=== PATIENT | female | born 1960 | race Caucasian/White ===

== ENCOUNTER 2017-12-28 11:31 | Emergency (ER) | payer SELFPAY ==
[~2017-12-28] VITALS: Ht 167.6 cm; Wt 64.1 kg
[~2017-12-28 11:31] MED LIST: CYCL-36 PO; DARV PO; LORT7.5T3 PO; MEDR4PAK3 PO
[2017-12-28 11:37] VITALS: BP 149/66; PULSE 112; RESP 16; TEMP 98.6; O2SAT 96
--- NOTE | 2017-12-28 12:41 | PD ---
HPI Chief Complaint: Abdominal Pain Time Seen by Provider: 12:25 Travel History International Travel<30 days: No Contact w/Intl Traveler<30days: No Traveled to known affect area: No History of Present Illness HPI This 57-year-old female had noted abdominal distention developing over the last couple of weeks. A few weeks ago she had a flu. She had persistent coughing. He then noted that her belly seemed to get distended. This is been progressive. She has noted some swelling of her legs. Today she noted that her eyes were a little bit yellow. She drinks 2 drinks every other day. She does not smoke. She is on no medications. PFSH Past Medical History Diminished Hearing: No ?: Not Past Surgical History Other Surgery: Yes (BACK AND ARM SX) Social History Alcohol Use: No Tobacco Use: No Substance Use: No Allergies-Medications (Allergen,Severity, Reaction): Coded Allergies: doxycycline (Unverified Allergy, Severe, 12/28/17) minocycline (Unverified Allergy, Severe, 12/28/17) penicillin G (Unverified Allergy, Severe, 12/28/17) tigecycline (Unverified Allergy, Severe, 12/28/17) Reported Meds & Prescriptions Reported Meds & Active Scripts Active No Active Prescriptions or Reported Medications Review of Systems General / Constitutional: No: Fever, Chills Eyes: No: Diploplia, Blurred Vision HENT: No: Headaches, Vertigo Cardiovascular: No: Chest Pain or Discomfort, Palpitations Respiratory: Positive: Cough Gastrointestinal: Positive: Nausea, Loss of Appetite Genitourinary: No: Frequency, Dysuria Musculoskeletal: No: Myalgias, Arthralgias Skin: No Rash, No Itching Psychiatric: No: Anxiety Hematologic/Lymphatic: No: Easy Bruising Physical Exam Narrative GENERAL: Well-developed female SKIN: Focused skin assessment warm/dry. HEAD: Atraumatic. Normocephalic. EYES: Pupils equal and round. There is scleral icterus. No injection or drainage. ENT: No nasal bleeding or discharge. Mucous membranes pink and moist. NECK: Trachea midline. No JVD. CARDIOVASCULAR: Regular rate and rhythm. No murmur appreciated. RESPIRATORY: No accessory muscle use. Clear to auscultation. Breath sounds equal bilaterally. GASTROINTESTINAL: Abdomen soft, it is distended and tense. Bowel sounds diminished MUSCULOSKELETAL: No obvious deformities. No clubbing. No cyanosis. No edema. NEUROLOGICAL: Awake and alert. No obvious cranial nerve deficits. Motor grossly within normal limits. Normal speech. PSYCHIATRIC: Appropriate mood and affect; insight and judgment normal. Data Data Last Documented VS Vital Signs Date Time Temp Pulse Resp B/P (MAP) Pulse Ox O2 Delivery O2 Flow Rate FiO2 12/28/17 14:45 107 16 126/79 (95) 98 Room Air 12/28/17 11:37 98.6 Orders Orders Complete Blood Count With Diff (12/28/17 12:36) Comprehensive Metabolic Panel (12/28/17 12:36) Prothrombin Time / Inr (Pt) (12/28/17 12:36) Act Partial Throm Time (Ptt) (12/28/17 12:36) Lipase (12/28/17 12:36) Urinalysis - C+S If Indicated (12/28/17 12:36) Chest, Single Ap (12/28/17 12:36) Ct Abd/Pel W Iv Contrast(Rout) (12/28/17 12:36) Sodium Chlor 0.9% 1000 Ml Inj (Ns 1000 M (12/28/17 12:45) Iohexol 350 Inj (Omnipaque 350 Inj) (12/28/17 14:21) Labs Laboratory Tests Test 12/28/17 12:45 12/28/17 13:01 12/28/17 13:45 Urine Color YELLOW Urine Turbidity CLEAR Urine pH 6.0 Urine Specific [place] 1.020 Urine Protein TRACE mg/dL Urine Glucose (UA) NEG mg/dL Urine Ketones 40 mg/dL Urine Occult Blood NEG Urine Nitrite POS Urine Bilirubin LARGE Urine Urobilinogen 4.0 MG/DL Urine Leukocyte Esterase NEG Urine WBC 0-2 /hpf Urine Squamous Epithelial Cells 0-5 /hpf Urine Bacteria OCC /hpf Urine Hyaline Casts 12 /lpf Urine Mucus MOD /lpf Microscopic Urinalysis Comment CULT NOT INDICATED White Blood Count 11.7 TH/MM3 Red Blood Count 3.94 MIL/MM3 Hemoglobin 13.6 GM/DL Hematocrit 39.8 % Mean Corpuscular Volume 101.2 FL Mean Corpuscular Hemoglobin 34.4 PG Mean Corpuscular Hemoglobin Concent 34.0 % Red Cell Distribution Width 15.4 % Platelet Count 116 TH/MM3 Mean Platelet Volume 10.0 FL CBC Comment AUTO DIFF Differential Total Cells Counted 100 Neutrophils % (Manual) 88 % Band Neutrophils % 8 % Lymphocytes % 2 % Monocytes % 2 % Neutrophils # (Manual) 11.2 TH/MM3 Nucleated Red Blood Cells 1 /100 WBC Differential Comment FINAL DIFF MANUAL Blood Urea Nitrogen 16 MG/DL Creatinine 0.60 MG/DL Random Glucose 79 MG/DL Total Protein 7.7 GM/DL Albumin 2.9 GM/DL Calcium Level 8.7 MG/DL Alkaline Phosphatase 641 U/L Aspartate Amino Transf (AST/SGOT) 350 U/L Alanine Aminotransferase (ALT/SGPT) 55 U/L Total Bilirubin 7.9 MG/DL Sodium Level 126 MEQ/L Potassium Level 4.2 MEQ/L Chloride Level 90 MEQ/L Carbon Dioxide Level 18.4 MEQ/L Anion Gap 18 MEQ/L Estimat Glomerular Filtration Rate 103 ML/MIN Lipase 824 U/L Prothrombin Time 14.9 SEC Prothromb Time International Ratio 1.5 RATIO Activated Partial Thromboplast Time 31.0 SEC MDM Medical Decision Making Medical Screen Exam Complete: Yes Emergency Medical Condition: Yes Medical Record Reviewed: Yes Differential Diagnosis Differential includes cirrhosis, ascites, obstructive jaundice, hepatitis Narrative Course Hemoglobin is 13.6 with a white count of 11,000. There is a 88% polys and 8% bands. Sodium is 126. Lipase is a 24. Total bilirubin is 7.9 AST of 350 and ALT of 55. CT scan shows ascites and cirrhosis. Spoken the patient is some length. The etiology of her cirrhosis is not clear. I have recommended that she be admitted he is quite adamant that she is going to go home. She is quite rational and says she will go for testing. She will be referred to clinic and I have also mentioned that she can return. I have urged her not to use Tylenol or alcohol Diagnosis Primary Impression: Cirrhosis of liver Referrals: [facility] Scripts No Active Prescriptions or Reported Meds Disposition: DISCHARGE HOME Condition: Stable Sy Tong MD Dec 28, 2017 12:41
[2017-12-28] MEDS ORDERED: SODIUM CHLOR 0.9% 1000 ML INJ 1,000 ML IV ONE (12:45)
[2017-12-28 13:35] LABS: CHLORIDE 90 MEQ/L (98-107); HEMATOCRIT 39.8 % (35.0-46.0); HEMOGLOBIN 13.6 GM/DL (11.6-15.3); MEAN CELL VOLUME 101.2 FL (80.0-100.0); MEAN CORPUSCULAR HEMOGLOBIN 34.4 PG (27.0-34.0); PLATELET COUNT 116 TH/MM3 (150-450); RED BLOOD COUNT 3.94 MIL/MM3 (4.00-5.30); RED CELL DISTRIBUTION WIDTH 15.4 % (11.6-17.2); SODIUM (NA) 126 MEQ/L (136-145); WHITE BLOOD COUNT 11.7 TH/MM3 (4.0-11.0)
--- NOTE | 2017-12-28 13:39 | RADRPT ---
EXAM DATE/TIME: 12/28/2017 13:14 [facility] COMPARISON: No previous studies available for comparison. INDICATIONS : Swollen stomach distention MEDICAL HISTORY : None. SURGICAL HISTORY : None. ENCOUNTER: Initial ACUITY: 1 week PAIN SCORE: 0/10 LOCATION: chest FINDINGS: Left lower lobe airspace disease and small pleural effusion. Likely trace right pleural effusion. Car diomediastinal contours are within normal limits. Bony thorax is intact. CONCLUSION: 1. Left lower lobe airspace disease and small left pleural effusion. 2. Probable trace right pleural effusion. Gage Anderson MD on December 28, 2017 at 13:35 Board Certified Radiologist. This report was verified electronically.
[2017-12-28 13:41] LABS: ALBUMIN 2.9 GM/DL (3.4-5.0); BICARBONATE 18.4 MEQ/L (21.0-32.0); CALCIUM 8.7 MG/DL (8.5-10.1)
[2017-12-28 13:42] LABS: BILIRUBIN, URINE LARGE (NEG); BLOOD, URINE NEG (NEG); GLUCOSE,URINE NEG (NEG); KETONE, URINE 40 mg/dL (NEG); NITRITE,URINE POS (NEG); URINE COLOR YELLOW (YELLW/STRAW); URINE LEUKOCYTE ESTERASE NEG (NEG)
[2017-12-28 13:42] LABS: BLOOD UREA NITROGEN 16 MG/DL (7-18); GLUCOSE,RANDOM 79 MG/DL (74-106)
[2017-12-28 13:44] LABS: ALT (GPT) 55 U/L (10-53); AST (GOT) 350 U/L (15-37); GLOMERULAR FILTRATION RATE 103 ML/MIN (>89)
[2017-12-28 13:46] LABS: TOTAL BILIRUBIN ADULT 7.9 MG/DL (0.2-1.0); TOTAL PROTEIN 7.7 GM/DL (6.4-8.2)
[2017-12-28 13:49] LABS: ALKALINE PHOSPHATASE 641 U/L (45-117)
[2017-12-28 13:49] LABS: MUCUS URINE MOD /lpf (OCC); WBC, URINE 0-2 /hpf (0-5)
[2017-12-28 13:50] LABS: HYALINE CAST, URINE 12 /lpf (RARE)
[2017-12-28 13:51] LABS: BACTERIA, URINE OCC /hpf; SQUAMOUS EPITHELIAL CELL URINE 0-5 /hpf (0-5)
[2017-12-28 14:02] LABS: BANDS 8 % (0-6); CORRECTED NUCLEATED RBC 1 /100 WBC (0-0); LYMPHOCYTES 2 % (9-44); MONOCYTES 2 % (0-8); NEUTROPHIL # MANUAL DIFF 11.2 TH/MM3 (1.8-7.7); NUCLEATED RED BLOOD CELL 1 (0-0); POLYS (SEG NEUTROPHILS) 88 % (16-70)
[2017-12-28 14:11] LABS: INTERNATIONAL NORMALIZED RATIO 1.5 RATIO; PROTHROMBIN TIME - PATIENT 14.9 SEC (9.8-11.6)
[2017-12-28] MEDS ORDERED: IOHEXOL 350 MG/ML 10 ML VIAL (for RAD DIAG) IVCONTRAST ONE (14:21)
--- NOTE | 2017-12-28 14:44 | RADRPT ---
EXAM DATE/TIME: 12/28/2017 14:15 [facility] COMPARISON: No previous studies available for comparison. INDICATIONS : Lower abdominal pain with nausea for two weeks. Noticed yellow sclera today. IV CONTRAST: 80 cc Omnipaque 350 (iohexol) IV ORAL CONTRAST: No oral contrast ingested. RADIATION DOSE: 11.47 CTDIvol (mGy) MEDICAL HISTORY : None SURGICAL HISTORY : Back surgery. ENCOUNTER: Initial ACUITY: 2 weeks PAIN SCALE: 5/10 LOCATION: lower quadrant TECHNIQUE: Volumetric scanning of the abdomen and pelvis was performed. Using automated exposure control and ad justment of the mA and/or kV according to patient size, radiation dose was kept as low as reasonably achievable to obtain optimal diagnostic quality images. DICOM format image data is available electro nically for review and comparison. FINDINGS: Large amount of ascites is noted throughout the abdomen and pelvis. The liver is heterogeneous in att enuation and nodular in contour suggesting cirrhosis. Recanalization of the umbilical vein as well as esophageal varices are noted suggesting portal hypertension. The gallbladder is distended but its wa ll is not thickened. The spleen is normal size. The pancreas is normal. There are tiny subcentimeter low-density lesions within the lower poles of both kidneys consistent with probable cysts. No hydrone phrosis, calcified stone or solid mass is noted. No bowel obstruction is noted. The uterus is unremar kable. The urinary bladder is unremarkable. Small bilateral pleural effusions are noted. Adjacent com pressive atelectasis is noted. Hiatal hernia is noted. Degenerative changes and scoliosis of the thor acolumbar spine are noted. CONCLUSION: 1. Heterogeneous nodular liver suggestive of cirrhosis. 2. Large amount of ascites. 3. Recanalization of the umbilical vein as well as esophageal varices suggesting portal hypertension. 4. Hiatal hernia. 5. Tiny subcentimeter lower pole bilateral renal cysts. 6. Small bilateral pleural effusions with adjacent compressive atelectasis. 7. Degenerative changes and scoliosis of the thoracolumbar spine. Olivier Torres MD on December 28, 2017 at 14:35 Board Certified Radiologist. This report was verified electronically.
[2017-12-28 14:45] VITALS: BP 126/79; PULSE 107; RESP 16; O2SAT 98
[2017-12-28 15:47] VITALS: BP 121/70
== END 2017-12-28 15:58 | disposition home or self-care (01) ==
LOC: PHED 11:31
DX: K74.60 Unspecified cirrhosis of liver (principal); R18.8 Other ascites; R05 Cough; M79.89 Other specified soft tissue disorders
CPT/HCPCS: 71045; 74177; 80053; 81001; 83690; 85007; 85027; 85610; 85730; 99285; J7030; Q9967

== ENCOUNTER 2018-01-02 13:57 | Inpatient (IN) | payer SELFPAY ==
[~2018-01-02] VITALS: Ht 167.6 cm; Wt 85.5 kg
[2018-01-02 14:25] VITALS: BP 101/63; PULSE 85; RESP 20; TEMP 98.3; O2SAT 98
[2018-01-02] MEDS ORDERED: SPIR50TA PO (14:54)
[2018-01-02] MEDS ORDERED: POTA-163 PO (14:54)
[2018-01-02] MEDS ORDERED: METO1TAB42 PO (14:54)
[2018-01-02] MEDS ORDERED: FURO1TAB62 PO (14:54)
--- NOTE | 2018-01-02 14:54 | PD ---
HPI Chief Complaint: Edema Time Seen by Provider: 14:37 Travel History International Travel<30 days: No Contact w/Intl Traveler<30days: No Traveled to known affect area: No History of Present Illness HPI 57yo F with PMH of alcohol abuse here with c/o worsening edema and sob on exertion for the last few days. Pt was seen here in the ED on 12/28/17 for edema and was found to have cirrhosis and large amount of ascites on CTa/p and small pleural effusion on CXR. Pt also with elevated LFTs and UA was positive for nitrite but culture was not indicated. Pt was recommended to be admitted for evaluation of ascites and cirrhosis but pt refused at the time. Pt said she went to her PMD 2 days ago and was started on furosemide 20mg daily, spironolactone 50mg daily as well as potassium. Pt was also started on metoprolol because her PMD said she had irregular heart beat. Pt said her swelling has gotten worse and she feels generalized weakness, dizziness and sob with exertion. Said abdomen is not really painful but sore. Denies any fever, chest pain, vomiting. Said she stopped drinking alcohol since this happen 12/28. PFSH Past Medical History Diminished Hearing: No ?: Not Past Surgical History Other Surgery: Yes (BACK AND RIGHT ARM SX) Social History Alcohol Use: Yes (couple drinks every 2 days) Tobacco Use: No Substance Use: No Allergies-Medications (Allergen,Severity, Reaction): Coded Allergies: doxycycline (Unverified Allergy, Severe, 12/28/17) minocycline (Unverified Allergy, Severe, 12/28/17) penicillin G (Unverified Allergy, Severe, 12/28/17) tigecycline (Unverified Allergy, Severe, 12/28/17) Reported Meds & Prescriptions Reported Meds & Active Scripts Active Reported Metoprolol Succinate ER 24 HR (Metoprolol Succinate) 25 Mg Tab 25 Mg PO DAILY Potassium Chloride ER (Potassium Chloride) 20 Meq Tab 80 Meq PO BID Spironolactone 50 Mg Tab 50 Mg PO DAILY Lasix (Furosemide) 20 Mg Tab 20 Mg PO DAILY Review of Systems Except as stated in HPI: all other systems reviewed are Neg Physical Exam Narrative GENERAL: 57yo F in mild distress. SKIN: Focused skin assessment warm/dry. HEAD: Atraumatic. Normocephalic. EYES: Pupils equal and round. + scleral icterus. No injection or drainage. ENT: No nasal bleeding or discharge. Mucous membranes pink and moist. NECK: Trachea midline. No JVD. CARDIOVASCULAR: Regular rate and rhythm. No murmur appreciated. RESPIRATORY: No accessory muscle use. Clear to auscultation. Breath sounds equal bilaterally. GASTROINTESTINAL: Abdomen softly distended. Mild ttp right upper abdomen. No rebound tenderness or guarding. MUSCULOSKELETAL: Diffused edema in bilateral lower extremity. NEUROLOGICAL: Awake and alert. No obvious cranial nerve deficits. Motor grossly within normal limits. Normal speech. PSYCHIATRIC: Appropriate mood and affect; insight and judgment normal. Data Data Last Documented VS Vital Signs Date Time Temp Pulse Resp B/P (MAP) Pulse Ox O2 Delivery O2 Flow Rate FiO2 01/02/18 14:48 Room Air 01/02/18 14:25 98.3 85 20 101/63 (76) 98 Orders Orders Complete Blood Count With Diff (01/02/18 14:41) Comprehensive Metabolic Panel (01/02/18 14:41) B-Type Natriuretic Peptide (01/02/18 14:47) Troponin I (01/02/18 14:47) Chest, Single Ap (01/02/18 ) Electrocardiogram (01/02/18 ) Urinalysis - C+S If Indicated (01/02/18 14:49) Furosemide Inj (Lasix Inj) (01/02/18 16:15) Blood Culture (01/02/18 17:05) Peritoneal Cell Count + Diff (01/02/18 17:12) Total Protein Peritoneal Fluid (01/02/18 17:12) Albumin, Peritoneal Fluid (01/02/18 17:12) Glucose, Peritoneal Fluid (01/02/18 17:12) Ldh, Peritoneal Fluid (01/02/18 17:12) Amylase, Peritoneal Fluid (01/02/18 17:12) Fluid Culture And Gram Stain (01/02/18 17:12) Cytology Request For Service (01/02/18 17:12) Ed Poc Ultrasound (01/02/18 ) Lidocaine 1% Inj (50 Ml) (Xylocaine 1% I (01/02/18 17:30) Prothrombin Time / Inr (Pt) (01/02/18 17:23) Act Partial Throm Time (Ptt) (01/02/18 17:23) Lidocaine Pf 1% Inj (Xylocaine-Mpf 1% In (01/02/18 17:25) Levofloxacin 750 Mg Premix Inj (Levaquin (01/02/18 18:00) Admit To Inpatient (01/02/18 ) Vital Signs (Adult) ELIAN.Q4H (01/02/18 18:07) Activity Oob With Assistance (01/02/18 18:07) Inpatient Certification (01/02/18 ) Admit Order (Ed Use Only) (01/02/18 18:08) Metoprolol Succinate Er (Toprol Xl) (01/03/18 09:00) Potassium Chloride (Kcl) (01/02/18 21:00) Spironolactone (Aldactone) (01/03/18 09:00) Echo 2d Comp With Doppler (01/02/18 ) Us Guided Abd Paracentesis (01/03/18 06:00) Labs Laboratory Tests Test 01/02/18 15:30 01/02/18 16:11 01/02/18 16:30 01/02/18 17:55 B-Type Natriuretic Peptide 85 PG/ML White Blood Count 19.0 TH/MM3 Red Blood Count 3.30 MIL/MM3 Hemoglobin 11.4 GM/DL Hematocrit 33.2 % Mean Corpuscular Volume 100.8 FL Mean Corpuscular Hemoglobin 34.7 PG Mean Corpuscular Hemoglobin Concent 34.4 % Red Cell Distribution Width 15.2 % Platelet Count 170 TH/MM3 Mean Platelet Volume 9.6 FL CBC Comment AUTO DIFF Differential Total Cells Counted 100 Neutrophils % (Manual) 69 % Band Neutrophils % 10 % Lymphocytes % 12 % Monocytes % 7 % Neutrophils # (Manual) 15.4 TH/MM3 Metamyelocytes 1 % Myelocytes 1 % Differential Comment FINAL DIFF MANUAL Toxic Granulation 1+ Platelet Estimate NORMAL Platelet Morphology Comment NORMAL Target Cells 2+ Prothrombin Time 15.4 SEC Prothromb Time International Ratio 1.5 RATIO Activated Partial Thromboplast Time 31.0 SEC Blood Urea Nitrogen 14 MG/DL Creatinine 0.55 MG/DL Random Glucose 91 MG/DL Total Protein 6.5 GM/DL Albumin 2.4 GM/DL Calcium Level 8.2 MG/DL Alkaline Phosphatase 486 U/L Aspartate Amino Transf (AST/SGOT) 234 U/L Alanine Aminotransferase (ALT/SGPT) 47 U/L Total Bilirubin 8.0 MG/DL Sodium Level 125 MEQ/L Potassium Level 4.4 MEQ/L Chloride Level 91 MEQ/L Carbon Dioxide Level 24.2 MEQ/L Anion Gap 10 MEQ/L Estimat Glomerular Filtration Rate 114 ML/MIN Troponin I LESS THAN 0.02 NG/ML Urine Collection Type CLEAN CATCH Urine Color LOR Urine Turbidity CLEAR Urine pH 6.0 Urine Specific [place] LESS/EQUAL 1.005 Urine Protein NEG mg/dL Urine Glucose (UA) NEG mg/dL Urine Ketones 15 mg/dL Urine Occult Blood NEG Urine Nitrite NEG Urine Bilirubin MOD Urine Urobilinogen 4.0 MG/DL Urine Leukocyte Esterase NEG Urine WBC 3-5 /hpf Urine Squamous Epithelial Cells >8 /hpf Urine Bacteria RARE /hpf Urine Mucus FEW /lpf Microscopic Urinalysis Comment CULT NOT INDICATED Peritoneal Fluid WBC 73 /MM3 Peritoneal Fluid RBC 352 /MM3 Peritoneal Fluid Neutrophils 14 % Peritoneal Fluid Lymphocytes 25 % Peritoneal Fluid Monocytes 15 % Peritoneal Fluid Histiocytes 44 % Peritoneal Fluid Mesothelial Cells 2 % Peritoneal Fluid Total Protein 0.9 GM/DL Peritoneal Fluid Albumin 0.4 G/DL Peritoneal Fluid LDH 61 U/L Peritoneal Fluid Glucose 101 MG/DL [place] Medical Decision Making Medical Screen Exam Complete: Yes Emergency Medical Condition: Yes Interpretation(s) EKG: NSR 80bpm. LAD. TWI V2. Low voltage. Differential Diagnosis Anasarca vs. cirrhosis vs. pleural effusion vs. spontaneous bacterial peritonitis Narrative Course 57yo F with worsening lower extremity edema, abdominal distension and now sob with exertion. Pt recently evaluated here with diagnosis of cirrhosis and had refused admission at that time. Pt now wants admission and has failed outpatient therapy with furosemide and spironolactone. Pt given lasix 40mg IV. Pt has a distended abdomen but denies any fever or vomiting. Pt keep saying she has soreness and not pain but it is mildly tender in right upper abdomen. Pt had recent CT a/p that showed signs of cirrhosis and large ascites. Labs reviewed, leukocytosis at 19,000 which is more elevated than 11.7 from 12/28/17. Also with 10% bandemia. Mild hyponatremia at 125 unchanged from prior. Elevated AST at 234 improved from last time. BNP 85. Trop negative. UA showed WBC 3-5. Culture not indicated. Concern for spontaneous bacterial peritonitis so bedside ultrasound guided diagnostic paracentesis performed and obtained 57cc of serous ascitic fluid. Pt given levofloxacin because of severe penicillin allergy when she was a child and she does not want to risk it. Discussed with Dr. Florentino and accepted to his service. Critical Care Narrative Aggregate critical care time was 40 minutes. Time to perform other separately billable procedures was not included in the critical care time. My time did not include minutes spent treating any other patients simultaneously or on activities that did not directly contribute to the patient's treatment. The services I provided to this patient were to treat and/or prevent clinically significant deterioration that could result in: cardiovascular collapse or . I provided critical care services requiring my management, as noted below: Chart data review, documentation time, medication orders and management, vital sign assessments/reviewing monitor data, ordering and reviewing lab tests, ordering and interpreting/reviewing x-rays and diagnostic studies, care of the patient and discussion of the patient with the admitting physicians. Procedures Procedure Narrative Ultrasound-guided paracentesis Curvilinear probe was used for ultrasound guided paracentesis. Right lower abdomen was cleaned with chlorhexadine and sterile drapes were used. 3cc of 1% lidocaine was used to anesthesize the area before an 18 gauge needle was used and 57cc of serous ascitic fluid was aspirated and sent to lab. Pt tolerated procedure well. Bandage was used to cover puncture site. No active bleeding. Diagnosis Primary Impression: Bandemia Additional Impression: Cirrhosis Qualified Codes: K74.60 - Unspecified cirrhosis of liver Admitting Information Admitting Physician Requests: Porsha Long DO Jan 02, 2018 14:54
--- NOTE | 2018-01-02 15:27 | RADRPT ---
EXAM DATE/TIME: 01/02/2018 14:53 [facility] COMPARISON: CT ABDOMEN & PELVIS W CONTRAST, December 28, 2017, 14:15. CHEST SINGLE AP, December 28, 2017, 13:14. INDICATIONS : Short of breath, cough MEDICAL HISTORY : Cirrhosis. SURGICAL HISTORY : None. ENCOUNTER: Initial ACUITY: 1 week PAIN SCORE: 0/10 LOCATION: Bilateral chest FINDINGS: Small bilateral effusions persists, slightly worse on the left than the right. Normal streaky parench ymal opacity in the lung bases. Cardiac contours are grossly stable. CONCLUSION: No significant change Messi Trinidad MD on January 02, 2018 at 15:24 Board Certified Radiologist. This report was verified electronically.
[2018-01-02] MEDS ORDERED: FUROSEMIDE 40 MG/4 ML VIAL IV PUSH ONE (16:15)
[2018-01-02 16:34] LABS: HEMATOCRIT 33.2 % (35.0-46.0); HEMOGLOBIN 11.4 GM/DL (11.6-15.3); MEAN CELL VOLUME 100.8 FL (80.0-100.0); MEAN CORPUSCULAR HEMOGLOBIN 34.7 PG (27.0-34.0); MEAN CORPUSCULAR HGB CONC 34.4 % (32.0-36.0); MEAN PLATELET VOLUME 9.6 FL (7.0-11.0); PLATELET COUNT 170 TH/MM3 (150-450); RED CELL DISTRIBUTION WIDTH 15.2 % (11.6-17.2)
[2018-01-02 16:42] LABS: CHLORIDE 91 MEQ/L (98-107); SODIUM (NA) 125 MEQ/L (136-145)
[2018-01-02 16:45] LABS: CALCIUM 8.2 MG/DL (8.5-10.1)
[2018-01-02 16:46] LABS: ALBUMIN 2.4 GM/DL (3.4-5.0); BICARBONATE 24.2 MEQ/L (21.0-32.0); BLOOD UREA NITROGEN 14 MG/DL (7-18); GLUCOSE,RANDOM 91 MG/DL (74-106)
[2018-01-02 16:48] LABS: BILIRUBIN, URINE MOD (NEG); BLOOD, URINE NEG (NEG); GLUCOSE,URINE NEG (NEG); KETONE, URINE 15 mg/dL (NEG); NITRITE,URINE NEG (NEG); URINE LEUKOCYTE ESTERASE NEG (NEG)
[2018-01-02 16:49] LABS: ALT (GPT) 47 U/L (10-53); AST (GOT) 234 U/L (15-37); CREATININE 0.55 MG/DL (0.50-1.00); GLOMERULAR FILTRATION RATE 114 ML/MIN (>89)
[2018-01-02 16:50] LABS: URINE COLOR AMBER (YELLW/STRAW)
[2018-01-02 16:50] LABS: TOTAL PROTEIN 6.5 GM/DL (6.4-8.2)
[2018-01-02 16:52] LABS: ALKALINE PHOSPHATASE 486 U/L (45-117)
[2018-01-02 17:15] LABS: BACTERIA, URINE RARE /hpf; MUCUS URINE FEW /lpf (OCC); SQUAMOUS EPITHELIAL CELL URINE >8 /hpf (0-5)
[2018-01-02] MEDS ORDERED: LIDOCAINE HCL 1% PF 30 ML VIAL ONE (17:25)
[2018-01-02] MEDS ORDERED: LIDOCAINE HCL 1% 50 ML VIAL INFIL ONE (17:30)
[2018-01-02 17:43] LABS: BANDS 10 % (0-6); LYMPHOCYTES 12 % (9-44); METAMYELOCYTES 1 % (0-1); MONOCYTES 7 % (0-8); MYELOCYTES 1 % (0-0); NEUTROPHIL # MANUAL DIFF 15.4 TH/MM3 (1.8-7.7); POLYS (SEG NEUTROPHILS) 69 % (16-70); TARGET CELLS 2+ (NORMAL); TOXIC GRANULATION 1+ (NORMAL)
[2018-01-02 17:46] LABS: INTERNATIONAL NORMALIZED RATIO 1.5 RATIO; PROTHROMBIN TIME - PATIENT 15.4 SEC (9.8-11.6)
[2018-01-02] MEDS ORDERED: LEVOFLOXACIN 750 MG PREMIX INJ 150 ML IV ONE (18:00)
[2018-01-02] MEDS ORDERED: LORazepam 2 MG/ML VIAL IV PUSH PRN ×4 (18:15)
[2018-01-02] MEDS ORDERED: LORazepam 2 MG TAB PO PRN (18:15)
[2018-01-02] MEDS ORDERED: LORazepam 1 MG TAB PO PRN (18:15)
[2018-01-02] MEDS ORDERED: FLUMAZENIL 0.5 MG/5 ML VIAL IV PUSH PRN (18:15)
[2018-01-02 18:32] VITALS: BP 97/66; PULSE 81; RESP 16; O2SAT 97
[2018-01-02 18:48] LABS: PERITONEAL HISTIOCYTES 44 %; PERITONEAL LYMPHS 25 %; PERITONEAL MESOTHELIAL 2 %; PERITONEAL MONOS 15 %; PERITONEAL POLYS(SEGS) 14 %; PERITONEAL RBC 352 /MM3 (0-0)
[2018-01-02 19:35] VITALS: BP 102/66; PULSE 74; RESP 20; O2SAT 99
[2018-01-02 20:00] VITALS: BP 105/65; PULSE 84; RESP 20; TEMP 96.8; O2SAT 97
[2018-01-02 20:21] LABS: TOTAL PROTEIN,PERITONEAL FLUID 0.9 GM/DL
[2018-01-02] MEDS ORDERED: KETOROLAC TROMETHAMINE 30 MG/ML (IVP) VIAL IV PUSH ONE (20:30)
[2018-01-02] MEDS: POTASSIUM CHLORIDE 20 MEQ CONTROLLED RELEASE TAB PO SCH (21:18)
[2018-01-02] MEDS ORDERED: MORPHINE SULFATE 4 MG/ML INJ IV PUSH ONE (23:15)
[2018-01-02] MEDS ORDERED: MORPHINE SULFATE 2 MG/ML SYRINGE IV PUSH ONE (23:15)
[2018-01-03] VITALS: BP 101/58; PULSE 83; RESP 20; TEMP 97.9; O2SAT 98
[2018-01-03 07:47] LABS: HEMATOCRIT 33.5 % (35.0-46.0); MEAN CELL VOLUME 101.4 FL (80.0-100.0); MEAN CORPUSCULAR HEMOGLOBIN 33.4 PG (27.0-34.0); MEAN PLATELET VOLUME 10.1 FL (7.0-11.0); PLATELET COUNT 170 TH/MM3 (150-450); RED CELL DISTRIBUTION WIDTH 15.5 % (11.6-17.2); WHITE BLOOD COUNT 17.6 TH/MM3 (4.0-11.0)
[2018-01-03 08:00] VITALS: BP 102/65; PULSE 78; RESP 16; TEMP 96.9; O2SAT 100
[2018-01-03 08:27] LABS: ALBUMIN 2.1 GM/DL (3.4-5.0); ALKALINE PHOSPHATASE 431 U/L (45-117); ALT (GPT) 43 U/L (10-53); AST (GOT) 206 U/L (15-37); BLOOD UREA NITROGEN 17 MG/DL (7-18); CALCIUM 8.1 MG/DL (8.5-10.1); CHLORIDE 92 MEQ/L (98-107); CREATININE 0.51 MG/DL (0.50-1.00); GLOMERULAR FILTRATION RATE 124 ML/MIN (>89); GLUCOSE,RANDOM 75 MG/DL (74-106); SODIUM (NA) 126 MEQ/L (136-145); TOTAL BILIRUBIN ADULT 7.2 MG/DL (0.2-1.0); TOTAL PROTEIN 5.9 GM/DL (6.4-8.2)
[2018-01-03 08:48] LABS: BANDS 5 % (0-6); CORRECTED NUCLEATED RBC 2 /100 WBC (0-0); LYMPHOCYTES 9 % (9-44); MONOCYTES 8 % (0-8); MYELOCYTES 1 % (0-0); NEUTROPHIL # MANUAL DIFF 14.4 TH/MM3 (1.8-7.7); NUCLEATED RED BLOOD CELL 2 (0-0); POLYS (SEG NEUTROPHILS) 76 % (16-70)
[2018-01-03 08:50] LABS: TARGET CELLS 1+ (NORMAL)
[2018-01-03] MEDS: POTASSIUM CHLORIDE 20 MEQ CONTROLLED RELEASE TAB PO SCH ×2 (09:00→21:53)
[2018-01-03] MEDS: METOPROLOL SUCCINATE 25 MG EXTENDED RELEASE TAB PO SCH (09:00)
[2018-01-03] MEDS ORDERED: LEVOFLOXACIN 750 MG TAB PO SCH (09:00)
[2018-01-03] MEDS: SPIRONOLACTONE 50 MG TAB PO SCH (09:05)
--- NOTE | 2018-01-03 09:34 | HHI.HP ---
HPI Service [facility] Primary Care Physician Rocael De La Torre MD (Paul) Admission Diagnosis Cirrhosis, sepsis, possible spontaneous bacterial peritonitis Diagnoses: Chief Complaint: swelling Travel History International Travel<30 Days: No Contact w/Intl Traveler <30 Da: No Traveled to Known Affected Are: No History of Present Illness 57-year-old white female being admitted for abdominal distention Patient was in her usual state of health until about a week ago when she began noticing gradual onset of abdominal distention and lower extremity edema. She initially went to the emergency room and was advised to stay but she wanted to go home. She was prescribed Lasix and spironolactone by her PCP where she started taking. However her distention and edema progressed and she also developed abdominal pain that was in the right upper quadrant and epigastrium prompting her to come to the emergency department. Reports some nausea but denies any diarrhea. Denies any fevers or chills. Says that it has been difficult for her to walk due to the edema in her legs. Case was discussed with the emergency department physician who said that she performed a bedside diagnostic paracentesis and sent specimen off for fluid analysis and cultures. Noted to have a bandemia upon presentation. Patient was given a dose of levofloxacin as well as Lasix. Patient denies such symptoms happening to her in the past. Denies having any prior knowledge of any liver disease. Social history is remarkable for 2 drinks of alcohol about daily to every other day. Says she has been doing this for a while. Denies smoking or any illicit drug use. He is to partake in a [employer] business. Family history significant for Alzheimer's in her mother and father with heart disease. Past medical history is unremarkable otherwise per patient. Review of Systems Except as stated in HPI: all other systems reviewed are Neg Past Family Social History Allergies: Coded Allergies: doxycycline (Unverified Allergy, Severe, 12/28/17) minocycline (Unverified Allergy, Severe, 12/28/17) penicillin G (Unverified Allergy, Severe, 12/28/17) tigecycline (Unverified Allergy, Severe, 12/28/17) Physical Exam Vital Signs Vital Signs Date Time Temp Pulse Resp B/P (MAP) Pulse Ox O2 Delivery O2 Flow Rate FiO2 01/03/18 08:00 96.9 78 16 102/65 (77) 100 01/03/18 00:00 97.9 83 20 101/58 (72) 98 01/02/18 20:00 96.8 84 20 105/65 (78) 97 01/02/18 19:35 74 20 102/66 (78) 99 Room Air 01/02/18 18:32 81 16 97/66 (76) 97 Room Air 01/02/18 14:48 Room Air 01/02/18 14:25 98.3 85 20 101/63 (76) 98 Physical Exam VS: afebrile GENERAL: Lying in bed, awake, alert, no acute distress SKIN: Warm and dry. EYES: prominent scleral icterus. No injection or drainage. ENT: No nasal bleeding or discharge. Mucous membranes pink and moist. CARDIOVASCULAR: Regular rate and rhythm. no murmurs RESPIRATORY: No accessory muscle use. Clear to auscultation. Breath sounds equal bilaterally. GASTROINTESTINAL: Abdomen soft, mod distended, RUQ TTP mod and epigastrium TTP mild Extremities: No clubbing, cyanosis. Mod LE edema MUSCULOSKELETAL: adequate muscle bulk and tone for age and habitus NEUROLOGICAL: Awake and alert. No obvious cranial nerve deficits. No facial droop nor slurred speech noted. PSYCHIATRIC: Appropriate mood and affect; insight and judgment normal. Laboratory Laboratory Tests Test 01/02/18 15:30 01/02/18 16:11 01/02/18 16:30 01/02/18 17:55 B-Type Natriuretic Peptide 85 White Blood Count 19.0 Red Blood Count 3.30 Hemoglobin 11.4 Hematocrit 33.2 Mean Corpuscular Volume 100.8 Mean Corpuscular Hemoglobin 34.7 Mean Corpuscular Hemoglobin Concent 34.4 Red Cell Distribution Width 15.2 Platelet Count 170 Mean Platelet Volume 9.6 CBC Comment AUTO DIFF Differential Total Cells Counted 100 Neutrophils % (Manual) 69 Band Neutrophils % 10 Lymphocytes % 12 Monocytes % 7 Neutrophils # (Manual) 15.4 Metamyelocytes 1 Myelocytes 1 Differential Comment FINAL DIFF MANUAL Toxic Granulation 1+ Platelet Estimate NORMAL Platelet Morphology Comment NORMAL Target Cells 2+ Prothrombin Time 15.4 Prothromb Time International Ratio 1.5 Activated Partial Thromboplast Time 31.0 Blood Urea Nitrogen 14 Creatinine 0.55 Random Glucose 91 Total Protein 6.5 Albumin 2.4 Calcium Level 8.2 Alkaline Phosphatase 486 Aspartate Amino Transf (AST/SGOT) 234 Alanine Aminotransferase (ALT/SGPT) 47 Total Bilirubin 8.0 Sodium Level 125 Potassium Level 4.4 Chloride Level 91 Carbon Dioxide Level 24.2 Anion Gap 10 Estimat Glomerular Filtration Rate 114 Troponin I LESS THAN 0.02 Urine Collection Type CLEAN CATCH Urine Color LOR Urine Turbidity CLEAR Urine pH 6.0 Urine Specific Richardson LESS/EQUAL 1.005 Urine Protein NEG Urine Glucose (UA) NEG Urine Ketones 15 Urine Occult Blood NEG Urine Nitrite NEG Urine Bilirubin MOD Urine Urobilinogen 4.0 Urine Leukocyte Esterase NEG Urine WBC 3-5 Urine Squamous Epithelial Cells >8 Urine Bacteria RARE Urine Mucus FEW Microscopic Urinalysis Comment CULT NOT INDICATED Peritoneal Fluid WBC 73 Peritoneal Fluid RBC 352 Peritoneal Fluid Neutrophils 14 Peritoneal Fluid Lymphocytes 25 Peritoneal Fluid Monocytes 15 Peritoneal Fluid Histiocytes 44 Peritoneal Fluid Mesothelial Cells 2 Peritoneal Fluid Total Protein 0.9 Peritoneal Fluid Albumin 0.4 Peritoneal Fluid LDH 61 Peritoneal Fluid Glucose 101 Test 01/03/18 06:30 White Blood Count 17.6 Red Blood Count 3.30 Hemoglobin 11.0 Hematocrit 33.5 Mean Corpuscular Volume 101.4 Mean Corpuscular Hemoglobin 33.4 Mean Corpuscular Hemoglobin Concent 33.0 Red Cell Distribution Width 15.5 Platelet Count 170 Mean Platelet Volume 10.1 CBC Comment AUTO DIFF Differential Total Cells Counted 100 Neutrophils % (Manual) 76 Band Neutrophils % 5 Lymphocytes % 9 Monocytes % 8 Eosinophils % 1 Neutrophils # (Manual) 14.4 Myelocytes 1 Nucleated Red Blood Cells 2 Differential Comment FINAL DIFF MANUAL Platelet Estimate NORMAL Platelet Morphology Comment NORMAL Target Cells 1+ Blood Urea Nitrogen 17 Creatinine 0.51 Random Glucose 75 Total Protein 5.9 Albumin 2.1 Calcium Level 8.1 Alkaline Phosphatase 431 Aspartate Amino Transf (AST/SGOT) 206 Alanine Aminotransferase (ALT/SGPT) 43 Total Bilirubin 7.2 Sodium Level 126 Potassium Level 5.4 Chloride Level 92 Carbon Dioxide Level 24.0 Anion Gap 10 Estimat Glomerular Filtration Rate 124 Date/Time Source Procedure Growth Status 01/02/18 17:20 Blood Peripheral Aerobic Blood Culture Pending Received 01/02/18 17:20 Blood Peripheral Anaerobic Blood Culture Pending Received 01/02/18 17:55 Fluid Peritoneal Fluid Gram Stain - Final Resulted 01/02/18 17:55 Fluid Peritoneal Fluid Body Fluid Culture Pending Resulted Result Diagram: 01/03/18 0630 01/03/18 0630 Imaging Last Impressions Chest X-Ray 01/02/18 0000 Signed Impressions: Service Date/Time: Tuesday, January 02, 2018 14:53 - CONCLUSION: No significant change MD Rhett Amaral VTE Risk Assessment Caprini VTE Risk Assessment: Mod/High Risk (score >= 2) Caprini Risk Assessment Model Point Value = 1 Point Value = 2 Point Value = 3 Point Value = 5 Age 41-60 Minor surgery BMI > 25 kg/m2 Swollen legs Varicose veins or History of unexplained or recurrent spontaneous Oral contraceptives or hormone replacement Sepsis (< 1 month) Serious lung disease, including pneumonia (< 1 month) Abnormal pulmonary function Acute myocardial infarction Congestive heart failure (< 1 month) History of inflammatory bowel disease Medical patient at bed rest Age 61-74 Arthroscopic surgery Major open surgery (> 45 min) Laparoscopic surgery (> 45 min) Malignancy Confined to bed (> 72 hours) Immobilizing plaster cast Central venous access Age >= 75 History of VTE Family history of VTE Factor V Leiden Prothrombin [id number] Lupus anticoagulant Anticardiolipin antibodies Elevated serum homocysteine Heparin-induced thrombocytopenia Other congenital or acquired thrombophilia Stroke (< 1 month) Elective arthroplasty Hip, pelvis, or leg fracture Acute spinal cord injury (< 1 month) Prophylaxis Regimen Total Risk Factor Score Risk Level Prophylaxis Regimen 0-1 Low Early ambulation 2 Moderate Order ONE of the following: *Sequential Compression Device (SCD) *Heparin 5000 units SQ BID 3-4 Higher Order ONE of the following medications: *Heparin 5000 units SQ TID *Enoxaparin/Lovenox 40 mg SQ daily (WT < 150 kg, CrCl > 30 mL/min) *Enoxaparin/Lovenox 30 mg SQ daily (WT < 150 kg, CrCl > 10-29 mL/min) *Enoxaparin/Lovenox 30 mg SQ BID (WT < 150 kg, CrCl > 30 mL/min) AND/OR *Sequential Compression Device (SCD) 5 or more Highest Order ONE of the following medications: *Heparin 5000 units SQ TID (Preferred with Epidurals) *Enoxaparin/Lovenox 40 mg SQ daily (WT < 150 kg, CrCl > 30 mL/min) *Enoxaparin/Lovenox 30 mg SQ daily (WT < 150 kg, CrCl > 10-29 mL/min) *Enoxaparin/Lovenox 30 mg SQ BID (WT < 150 kg, CrCl > 30 mL/min) AND *Sequential Compression Device (SCD) Assessment and Plan Problem List: (1) Hepatic insufficiency ICD Code: K72.90 - Hepatic failure, unspecified without coma Assessment and Plan 57-year-old white female being admitted for abdominal distention Abdominal distention -Suspect fluid overload from either hepatic insufficiency which is evident and/ or possible heart failure -Peritoneal fluid analysis is unremarkable for SBP. Stopping antibiotics. Culture pending -Ordering therapeutic ultrasound-guided paracentesis as well as ultrasound of gallbladder/biliary tree -continue home Lasix and spironolactone and toprol xl daily -Fluid restriction and salt restriction - lipase added on to specimen Lower extremity edema -Possible fluid overload as above etiologies -Echocardiogram ordered; fluid restriction -I independently reviewed the chest x-ray which looks unremarkable for any acute infiltrates; EKG is also unremarkable; troponin negative Transaminitis -Suspect hepatic insufficiency from alcohol use given her hyponatremia and the INR of 1.5 -We will order basic autoimmune hepatic workup as well to rule out other etiologies for this -avoid tylenol; morphine prn pain Hyponatremia -Suspect secondary hepatic insufficiency/beer potomania; fluid restriction and salt restriction -Echocardiogram pending no SCDs given LE edema, no pharm anticoag 2/2 liver disease Physician Certification 2 Midnight Certification Type: Admission for Inpatient Services Order for Inpatient Services The services are ordered in accordance with Medicare regulations or non- Medicare payer requirements, as applicable. In the case of services not specified as inpatient-only, they are appropriately provided as inpatient services in accordance with the 2-midnight benchmark. Estimated LOS (days): 2 2 days is the estimated time the patient will need to remain in the hospital, assuming treatment plan goals are met and no additional complications. Post-Hospital Plan: Home Kerwin Florentino MD Jan 03, 2018 09:34
[2018-01-03] MEDS: MORPHINE SULFATE 15 MG TAB PO PRN ×3 (09:37→21:46)
[2018-01-03] MEDS: FUROSEMIDE 20 MG TAB PO SCH (10:14)
[2018-01-03] MEDS ORDERED: ONDANSETRON HCL 4 MG/2 ML VIAL IV PUSH PRN (10:15)
--- NOTE | 2018-01-03 12:37 | RADRPT ---
EXAM DATE/TIME: 01/03/2018 12:04 This report includes an Addendum and supersedes previous reports for this exam. [facility] COMPARISON: No previous studies available for comparison. INDICATIONS : Right upper quadrant pain. MEDICAL HISTORY : Glasses. Liver disease. SURGICAL HISTORY : Back surgery. Right arm surgery. ENCOUNTER: Initial ACUITY: 1 day PAIN SCORE: 3/10 LOCATION: Right upper quadrant MEASUREMENTS: LIVER: 17.7 cm length COMMON DUCT: 8 mm RIGHT KIDNEY: 10.4 x 5.4 x 4.3 cm FINDINGS: LIVER: Liver is heterogeneous suggesting fatty infiltration. Main portal vein patent. COMMON DUCT: No intraluminal mass or stone visualized. GALLBLADDER: Gallbladder with 8 mm common duct. PANCREAS: The visualized portions are within normal limits. RIGHT KIDNEY: No evidence of hydronephrosis, stone, or mass. CONCLUSION: Trace ascites following paracentesis Echogenic liver suggesting fatty infiltration with mild prominent common duct. Chevy Siddiqi MD FACR on January 03, 2018 at 12:34 Board Certified Radiologist. This report was verified electronically. ADDENDUM: Liver is cirrhotic and there is reversal of flow in the main portal vein. Gallbladder is distended, n onspecific but likely related to ascites and chronic liver disease. There is no wall thickening. No p erceptible stones. Negative sonographic Muniz's sign. Messi Dalal MD on January 11, 2018 at 19:03 Board Certified Radiologist. This report was verified electronically.
--- NOTE | 2018-01-03 14:23 | EKG ---
Date Performed: 01/02/2018 Time Performed: 14:53:49 PTAGE: 57 years EKG: Sinus rhythm LOW QRS VOLTAGE IN PRECORDIAL LEADS POSSIBLE ANTERIOR MYOCARDIAL INFARCTION BORDERLINE ECG NO PREVIOUS TRACING DOCTOR: Leeanne Guardado Interpretating Date/Time 01/03/2018 14:20:55
[2018-01-03 16:00] VITALS: BP 93/50; PULSE 73; RESP 15; TEMP 97; O2SAT 97
[2018-01-03 20:00] VITALS: BP 90/64; PULSE 80; RESP 18; TEMP 97.3; O2SAT 98
[2018-01-04] VITALS: BP 97/68; PULSE 79; RESP 17; TEMP 97.7; O2SAT 97
[2018-01-04] MEDS: MORPHINE SULFATE 15 MG TAB PO PRN (03:01)
[2018-01-04 06:19] LABS: HEMATOCRIT 33.9 % (35.0-46.0); HEMOGLOBIN 11.4 GM/DL (11.6-15.3); MEAN CELL VOLUME 101.4 FL (80.0-100.0); MEAN CORPUSCULAR HEMOGLOBIN 34.2 PG (27.0-34.0); MEAN CORPUSCULAR HGB CONC 33.7 % (32.0-36.0); MEAN PLATELET VOLUME 10.1 FL (7.0-11.0); PLATELET COUNT 189 TH/MM3 (150-450); RED BLOOD COUNT 3.34 MIL/MM3 (4.00-5.30); RED CELL DISTRIBUTION WIDTH 15.8 % (11.6-17.2); WHITE BLOOD COUNT 18.4 TH/MM3 (4.0-11.0)
[2018-01-04 06:55] LABS: ALBUMIN 2.3 GM/DL (3.4-5.0); ALKALINE PHOSPHATASE 476 U/L (45-117); ALT (GPT) 50 U/L (10-53); AST (GOT) 220 U/L (15-37); BICARBONATE 22.1 MEQ/L (21.0-32.0); BLOOD UREA NITROGEN 16 MG/DL (7-18); CALCIUM 8.4 MG/DL (8.5-10.1); CHLORIDE 89 MEQ/L (98-107); CREATININE 0.42 MG/DL (0.50-1.00); GLOMERULAR FILTRATION RATE 156 ML/MIN (>89); GLUCOSE,RANDOM 82 MG/DL (74-106); TOTAL BILIRUBIN ADULT 7.7 MG/DL (0.2-1.0); TOTAL PROTEIN 6.5 GM/DL (6.4-8.2)
[2018-01-04 07:06] LABS: SODIUM (NA) 123 MEQ/L (136-145)
--- NOTE | 2018-01-04 07:48 | RADRPT ---
EXAM DATE/TIME: 01/03/2018 11:02 [facility] COMPARISON: No previous studies available for comparison. INDICATIONS : Ascites. MEDICAL HISTORY : Glasses. Liver disease. SURGICAL HISTORY : Back surgery. Right arm surgery. ENCOUNTER: Initial ACUITY: 1 week PAIN SCORE: 3/10 LOCATION: Bilateral lower quadrant FLUID: Total volume of 4400 cc of clear, yellow fluid was removed. Fluid was discarded. Paracentesis was therapeutic only. Post procedure scanning reveals no hematoma or other complication. TECHNIQUE: 1. Ultrasound guidance for abdominal paracentesis. 2. Paracentesis. The risks, benefits, and alternatives to ultrasound guided paracentesis were explained to the patient in detail including the risk of bleeding and infection. Written and verbal informed consent was obt ained. With the patient on the ultrasound table, ultrasound imaging was used to select the most appropriate approach for paracentesis. Overlying skin was prepped and draped in the usual sterile fashion and wi th a local anesthetic, a dermatotomy was made with an 11 blade scalpel. A 6 [place] Kyt-H-sultekig ca theter was introduced into the peritoneal cavity and fluid was collected. The patient tolerated the procedure well and left the ultrasound suite in stable condition. CONCLUSION: Uncomplicated ultrasound guided paracentesis. Gage Anderson MD on January 04, 2018 at 7:46 Board Certified Radiologist. This report was verified electronically.
[2018-01-04 07:50] VITALS: BP 119/67; PULSE 96; RESP 20; TEMP 97.5; O2SAT 97
[2018-01-04] MEDS: FUROSEMIDE 20 MG TAB PO SCH (08:48)
[2018-01-04] MEDS: METOPROLOL SUCCINATE 25 MG EXTENDED RELEASE TAB PO SCH (08:49)
[2018-01-04] MEDS: SPIRONOLACTONE 50 MG TAB PO SCH (08:50)
[2018-01-04 08:52] LABS: BANDS 12 % (0-6); LYMPHOCYTES 6 % (9-44); MONOCYTES 5 % (0-8); MYELOCYTES 3 % (0-0); NEUTROPHIL # MANUAL DIFF 16.2 TH/MM3 (1.8-7.7); POLYS (SEG NEUTROPHILS) 73 % (16-70)
[2018-01-04 08:53] LABS: TOXIC GRANULATION 2+ (NORMAL)
[2018-01-04] MEDS: POTASSIUM CHLORIDE 20 MEQ CONTROLLED RELEASE TAB PO SCH (08:56)
--- NOTE | 2018-01-04 09:49 | ECHRPT ---
Indication: HEART FAILURE CONCLUSIONS Normal left ventricular size. Wall thickness is normal. The left ventricular systolic function is normal with an estimated ejection fraction in the range of 55-60%. Mitral annular calcification is present. Trace mitral valve regurgitation. Aortic valve sclerosis is present. Trace aortic valve regurgitation. There is moderate to severe tricuspid valve regurgitation. The estimated pulmonary arterial pressure is 48 mmHg. BP: / HR: Rhythm: MEASUREMENTS (Male / Female) Normal Values Technical Quality: 2D ECHO LV Diastolic Diameter PLAX 4.5 cm 4.2 - 5.9 / 3.9 - 5.3 cm LV Systolic Diameter PLAX 3.3 cm IVS Diastolic Thickness 1.1 cm 0.6 - 1.0 / 0.6 - 0.9 cm LVPW Diastolic Thickness 0.6 cm 0.6 - 1.0 / 0.6 - 0.9 cm LV Relative Wall Thickness 0.4 LA Systolic Diameter LX 3.9 cm 3.0 - 4.0 / 2.7 - 3.8 cm DOPPLER Mitral E Point Velocity 63.7 cm/s Mitral A Point Velocity 57.3 cm/s Mitral E to A Ratio 1.1 TR Peak Velocity 333.0 cm/s TR Peak Gradient 44.4 mmHg FINDINGS LEFT VENTRICLE Normal left ventricular size. Wall thickness is normal. The left ventricular systolic function is normal with an estimated ejection fraction in the range of 55-60%. RIGHT VENTRICLE Normal right ventricular size and systolic function. LEFT ATRIUM The left atrial size is moderately dilated. RIGHT ATRIUM The right atrial size is [id number] dilated. ATRIAL SEPTUM Normal atrial septal thickness without atrial level shunting by limited color doppler interrogation. AORTA The aortic root and proximal ascending aorta are normal in size on limited imaging. MITRAL VALVE Mitral annular calcification is present. Trace mitral valve regurgitation. AORTIC VALVE Aortic valve sclerosis is present. Trace aortic valve regurgitation. TRICUSPID VALVE There is moderate to severe tricuspid valve regurgitation. The estimated pulmonary arterial pressure is 48 mmHg. PULMONARY VALVE The pulmonary valve is not well visualized. VESSELS The inferior vena cava is normal in size. PERICARDIUM No pericardial effusion. Leeanne Guardado MD, FACC (Electronically Signed) Final Date:04 January 2018 09:48
--- NOTE | 2018-01-04 10:56 | HHI.PR ---
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 Patient still quite edematous and weak. Patient has hyponatremia and is jaundiced. Plan of care discussed with patient Objective Vitals Vital Signs Date Time Temp Pulse Resp B/P (MAP) Pulse Ox O2 Delivery O2 Flow Rate FiO2 01/04/18 07:50 97.5 96 20 119/67 (84) 97 01/04/18 00:00 97.7 79 17 97/68 (78) 97 01/03/18 20:00 97.3 80 18 90/64 (73) 98 01/03/18 16:51 18 01/03/18 16:00 97.0 73 15 93/50 (64) 97 I/O 01/03/18 01/03/18 01/03/18 01/04/18 01/04/18 01/04/18 07:00 15:00 23:00 07:00 15:00 23:00 Intake Total 240 ml 1000 ml Balance 240 ml 1000 ml Intake Oral 240 ml 1000 ml # Voids 2 2 Result Diagram: 01/04/18 0515 01/04/18 0515 Imaging Last Impressions Cyst Biopsy Asp-Paracentesis US 01/03/18 0600 Signed Impressions: Service Date/Time: Wednesday, January 03, 2018 11:02 - CONCLUSION: Uncomplicated ultrasound guided paracentesis. Gage Anderson MD Gall Bladder Ultrasound 01/03/18 0000 Signed Impressions: Service Date/Time: Wednesday, January 03, 2018 12:04 - CONCLUSION: Trace ascites following paracentesis Echogenic liver suggesting fatty infiltration with mild prominent common duct. Chevy Siddiqi MD FACR Chest X-Ray 01/02/18 0000 Signed Impressions: Service Date/Time: Tuesday, January 02, 2018 14:53 - CONCLUSION: No significant change Messi Trinidad MD Objective Remarks GENERAL: This is a well-nourished, well-developed patient, feels weak, jaundiced CARDIOVASCULAR: Regular rate and rhythm without murmurs, gallops, or rubs. RESPIRATORY: Clear to auscultation. Breath sounds equal bilaterally. No wheezes , rales, or rhonchi. GASTROINTESTINAL: Abdomen soft, non-tender, mildly distended. Normal active bowel sounds MUSCULOSKELETAL: Extremities without clubbing, cyanosis, and there is +2 edema NEURO: Alert & Oriented x4 to person, place, time, situation. Moves all ext x4 Procedures 4400 mL ultrasound-guided paracentesis A/P Problem List: (1) Hepatic insufficiency ICD Code: K72.90 - Hepatic failure, unspecified without coma Plan: Likely due to alcoholic liver disease We will continue to adjust medications, add Lasix and follow urine output Patient poor overall prognosis due to advanced liver disease with elevated PT, Hyponatremia GI consult pending (2) Hyponatremia ICD Code: E87.1 - Hypo-osmolality and hyponatremia Plan: Likely due to increased fluid volume, increase diuretic (3) Hyperkalemia ICD Code: E87.5 - Hyperkalemia Plan: We will DC potassium and replace as needed Follow-up on current diuretics (4) Hypotension ICD Code: I95.9 - Hypotension, unspecified Plan: Follow closely on metoprolol Watch fluid intake Discharge Planning Probably home with home health in stable Fozia Stein MD Jan 04, 2018 10:56
[2018-01-04] MEDS ORDERED: FUROSEMIDE 40 MG/4 ML VIAL IV PUSH ONE (11:30)
[2018-01-04 11:50] VITALS: BP 109/64; PULSE 94; RESP 20; TEMP 96.4; O2SAT 94
[2018-01-04 15:37] VITALS: BP 117/67; PULSE 87; RESP 20; TEMP 96.8; O2SAT 92
[2018-01-04 20:00] VITALS: BP 115/66; PULSE 89; RESP 16; TEMP 96.7; O2SAT 96
[2018-01-05] VITALS: BP 102/61; PULSE 71; RESP 20; TEMP 97.1; O2SAT 97
[2018-01-05 06:37] LABS: ALBUMIN 1.9 GM/DL (3.4-5.0); ALKALINE PHOSPHATASE 391 U/L (45-117); ALT (GPT) 41 U/L (10-53); AST (GOT) 197 U/L (15-37); BICARBONATE 24.4 MEQ/L (21.0-32.0); BLOOD UREA NITROGEN 17 MG/DL (7-18); CALCIUM 7.9 MG/DL (8.5-10.1); CHLORIDE 91 MEQ/L (98-107); CREATININE 0.51 MG/DL (0.50-1.00); GLOMERULAR FILTRATION RATE 124 ML/MIN (>89); GLUCOSE,RANDOM 87 MG/DL (74-106); TOTAL BILIRUBIN ADULT 5.7 MG/DL (0.2-1.0); TOTAL PROTEIN 5.6 GM/DL (6.4-8.2)
[2018-01-05 07:22] LABS: SODIUM (NA) 123 MEQ/L (136-145)
[2018-01-05 08:00] VITALS: BP 106/59; PULSE 84; RESP 16; TEMP 96.9; O2SAT 93
[2018-01-05] MEDS: SPIRONOLACTONE 50 MG TAB PO SCH (09:22)
[2018-01-05] MEDS: METOPROLOL SUCCINATE 25 MG EXTENDED RELEASE TAB PO SCH (09:22)
--- NOTE | 2018-01-05 10:36 | HHI.PR ---
Subjective Remarks Patient seen and evaluated today in follow-up for liver failure likely secondary to alcoholic related liver disease. Overall feels stronger. Still with some edema and jaundiced with scleral icterus. Potassium is elevated and sodium is still low. Discussed at length with patient regarding plan of care and treatment Objective Vitals Vital Signs Date Time Temp Pulse Resp B/P (MAP) Pulse Ox O2 Delivery O2 Flow Rate FiO2 01/05/18 08:00 96.9 84 16 106/59 (75) 93 01/05/18 00:00 97.1 71 20 102/61 (75) 97 01/04/18 20:00 96.7 89 16 115/66 (82) 96 01/04/18 15:37 96.8 87 20 117/67 (84) 92 01/04/18 11:50 96.4 94 20 109/64 (79) 94 I/O 01/04/18 01/04/18 01/04/18 01/05/18 01/05/18 01/05/18 06:59 14:59 22:59 06:59 14:59 22:59 Intake Total 200 ml 520 ml 240 ml Balance 200 ml 520 ml 240 ml Intake Oral 200 ml 520 ml 240 ml # Voids 2 2 5 # Bowel Movements 0 0 Result Diagram: 01/04/18 0515 01/05/18 0519 Objective Remarks GENERAL: This is a well-nourished, well-developed patient, feels weak, jaundiced CARDIOVASCULAR: Regular rate and rhythm without murmurs, gallops, or rubs. RESPIRATORY: Clear to auscultation. Breath sounds equal bilaterally. No wheezes , rales, or rhonchi. GASTROINTESTINAL: Abdomen soft, non-tender, mildly distended. Normal active bowel sounds MUSCULOSKELETAL: Extremities without clubbing, cyanosis, and there is +2 edema NEURO: Alert & Oriented x4 to person, place, time, situation. Moves all ext x4 Procedures 4400 mL ultrasound-guided paracentesis A/P Problem List: (1) Hepatic insufficiency ICD Code: K72.90 - Hepatic failure, unspecified without coma Plan: Likely due to alcoholic liver disease We will continue to adjust medications, add Lasix and follow urine output Patient poor overall prognosis due to advanced liver disease with elevated PT, Hyponatremia GI consult pending (2) Hyponatremia ICD Code: E87.1 - Hypo-osmolality and hyponatremia Plan: Likely due to increased fluid volume, Continue diuretic (3) Hyperkalemia ICD Code: E87.5 - Hyperkalemia Plan: Still elevated despite Lasix Add Kayexalate Follow-up on current diuretics (4) Hypotension ICD Code: I95.9 - Hypotension, unspecified Plan: Follow closely on metoprolol Watch fluid intake Discharge Planning home with home health when stable Fozia Stein MD Jan 05, 2018 10:36
--- NOTE | 2018-01-05 10:37 | HHI.FF ---
Face to Face Verification Diagnosis: (1) Cirrhosis (2) Hypotension Physical Therapy Order: Evaluate and Treat, Improve ambulation Home Health Nursing Order: Medical education Nursing assessment with vital signs I have seen patient Shira Oneill on 01/05/18. My clinical findings support the need for the requested home health care services because: Deconditioned w/ increased weakness I certify that my clinical findings support that this patient is homebound because: Impaired cognitive ability/safety Fozia Stein MD Jan 05, 2018 10:37
[2018-01-05] MEDS ORDERED: SODIUM POLYSTYRENE SULFONATE SUSP 15 GM/60 ML CUP PO ONE (11:00)
[2018-01-05] MEDS ORDERED: LACTULOSE SYRUP 20 GM/30 ML CUP PO ONE (11:00)
[2018-01-05 12:23] VITALS: BP 99/57; PULSE 81; RESP 16; TEMP 97.2; O2SAT 91
[2018-01-05 15:11] LABS: AMYLASE BODY FLUID 80 U/L; AMYLASE BODY FLUID TYPE PERITONEAL
[2018-01-05 16:00] VITALS: BP 100/59; PULSE 77; RESP 16; TEMP 96.1; O2SAT 94
[2018-01-05] MEDS: FUROSEMIDE 20 MG TAB PO SCH (17:53)
[2018-01-05] MEDS: MORPHINE SULFATE 15 MG TAB PO PRN (17:54)
[2018-01-05 18:31] LABS: SODIUM,RANDOM URINE LESS THAN 5 MEQ/L
[2018-01-05 19:48] LABS: OSMOLALITY,URINE 543 MOSM/KG (300-1300)
[2018-01-05 20:00] VITALS: BP 93/56; PULSE 78; RESP 16; TEMP 96.3; O2SAT 95
[2018-01-05 20:53] LABS: ALKALINE PHOSPHATASE 405 U/L (45-117); ALT (GPT) 44 U/L (10-53); AST (GOT) 206 U/L (15-37); BICARBONATE 23.8 MEQ/L (21.0-32.0); BLOOD UREA NITROGEN 17 MG/DL (7-18); CALCIUM 7.7 MG/DL (8.5-10.1); CHLORIDE 91 MEQ/L (98-107); CREATININE 0.53 MG/DL (0.50-1.00); GLOMERULAR FILTRATION RATE 119 ML/MIN (>89); GLUCOSE,RANDOM 105 MG/DL (74-106); TOTAL BILIRUBIN ADULT 6.1 MG/DL (0.2-1.0); TOTAL PROTEIN 5.7 GM/DL (6.4-8.2)
[2018-01-05 20:54] LABS: SODIUM (NA) 123 MEQ/L (136-145)
[2018-01-06] VITALS: BP 100/58; PULSE 90; RESP 16; TEMP 97.1; O2SAT 94
[2018-01-06 07:50] VITALS: BP 101/72; PULSE 86; RESP 20; TEMP 96.2; O2SAT 98
[2018-01-06] MEDS: FUROSEMIDE 20 MG TAB PO SCH (08:34)
[2018-01-06] MEDS: METOPROLOL SUCCINATE 25 MG EXTENDED RELEASE TAB PO SCH (08:34)
[2018-01-06] MEDS: SPIRONOLACTONE 50 MG TAB PO SCH (08:34)
[2018-01-06] MEDS: MORPHINE SULFATE 15 MG TAB PO PRN (08:39)
[2018-01-06] MEDS ORDERED: SPIR50TA PO (10:10)
[2018-01-06] MEDS ORDERED: FURO20TA PO (10:10)
[2018-01-06] MEDS ORDERED: PENT400T PO (10:10)
--- NOTE | 2018-01-06 10:16 | HHI.DS ---
Discharge Summary Admission Date Jan 02, 2018 at 18:10 Discharge Date: Jan 06, 2018 Admitting Diagnosis Cirrhosis, sepsis, possible spontaneous bacterial peritonitis (1) Hepatic insufficiency ICD Code: K72.90 - Hepatic failure, unspecified without coma (2) Hyponatremia ICD Code: E87.1 - Hypo-osmolality and hyponatremia (3) Hyperkalemia ICD Code: E87.5 - Hyperkalemia (4) Hypotension ICD Code: I95.9 - Hypotension, unspecified Procedures 4400 mL ultrasound-guided paracentesis Brief History - From Admission 57-year-old white female being admitted for abdominal distention Patient was in her usual state of health until about a week ago when she began noticing gradual onset of abdominal distention and lower extremity edema. She initially went to the emergency room and was advised to stay but she wanted to go home. She was prescribed Lasix and spironolactone by her PCP where she started taking. However her distention and edema progressed and she also developed abdominal pain that was in the right upper quadrant and epigastrium prompting her to come to the emergency department. Reports some nausea but denies any diarrhea. Denies any fevers or chills. Says that it has been difficult for her to walk due to the edema in her legs. Case was discussed with the emergency department physician who said that she performed a bedside diagnostic paracentesis and sent specimen off for fluid analysis and cultures. Noted to have a bandemia upon presentation. Patient was given a dose of levofloxacin as well as Lasix. Patient denies such symptoms happening to her in the past. Denies having any prior knowledge of any liver disease. Social history is remarkable for 2 drinks of alcohol about daily to every other day. Says she has been doing this for a while. Denies smoking or any illicit drug use. He is to partake in a [employer] business. Family history significant for Alzheimer's in her mother and father with heart disease. Past medical history is unremarkable otherwise per patient. CBC/BMP: 01/04/18 0515 01/05/181999 Significant Findings Laboratory Tests Test 01/03/18 20:45 01/04/18 05:15 01/04/18 11:36 01/05/18 05:19 White Blood Count 18.4 TH/MM3 (4.0-11.0) Red Blood Count 3.34 MIL/MM3 (4.00-5.30) Hemoglobin 11.4 GM/DL (11.6-15.3) Hematocrit 33.9 % (35.0-46.0) Mean Corpuscular Volume 101.4 FL (80.0-100.0) Mean Corpuscular Hemoglobin 34.2 PG (27.0-34.0) Neutrophils % (Manual) 73 % (16-70) Band Neutrophils % 12 % (0-6) Lymphocytes % 6 % (9-44) Neutrophils # (Manual) 16.2 TH/MM3 (1.8-7.7) Myelocytes 3 % (0-0) Toxic Granulation 2+ (NORMAL) Creatinine 0.42 MG/DL (0.50-1.00) Albumin 2.3 GM/DL (3.4-5.0) 1.9 GM/DL (3.4-5.0) Calcium Level 8.4 MG/DL (8.5-10.1) 7.9 MG/DL (8.5-10.1) Alkaline Phosphatase 476 U/L (45-117) 391 U/L (45-117) Aspartate Amino Transf (AST/SGOT) 220 U/L (15-37) 197 U/L (15-37) Total Bilirubin 7.7 MG/DL (0.2-1.0) 5.7 MG/DL (0.2-1.0) Sodium Level 123 MEQ/L (136-145) 123 MEQ/L (136-145) Chloride Level 89 MEQ/L (98-107) 91 MEQ/L (98-107) Ammonia LESS THAN 10 MCMOL/L Total Protein 5.6 GM/DL (6.4-8.2) Potassium Level 5.3 MEQ/L (3.5-5.1) Test 01/05/18 09:55 01/05/18 14:13 01/05/18 20:00 Serum Osmolality 269 MOSM/KG (275-295) Total Protein 5.7 GM/DL (6.4-8.2) Albumin 2.0 GM/DL (3.4-5.0) Calcium Level 7.7 MG/DL (8.5-10.1) Alkaline Phosphatase 405 U/L (45-117) Aspartate Amino Transf (AST/SGOT) 206 U/L (15-37) Total Bilirubin 6.1 MG/DL (0.2-1.0) Sodium Level 123 MEQ/L (136-145) Chloride Level 91 MEQ/L (98-107) Imaging Last Impressions Cyst Biopsy Asp-Paracentesis US 01/03/18 0600 Signed Impressions: Service Date/Time: Wednesday, January 03, 2018 11:02 - CONCLUSION: Uncomplicated ultrasound guided paracentesis. Gage Anderson MD Gall Bladder Ultrasound 01/03/18 0000 Signed Impressions: Service Date/Time: Wednesday, January 03, 2018 12:04 - CONCLUSION: Trace ascites following paracentesis Echogenic liver suggesting fatty infiltration with mild prominent common duct. Chevy Siddiqi MD FACR Chest X-Ray 01/02/18 0000 Signed Impressions: Service Date/Time: Tuesday, January 02, 2018 14:53 - CONCLUSION: No significant change Messi Trinidad MD PE at Discharge GENERAL: This is a well-nourished, well-developed patient, feels weak, jaundiced CARDIOVASCULAR: Regular rate and rhythm without murmurs, gallops, or rubs. RESPIRATORY: Clear to auscultation. Breath sounds equal bilaterally. No wheezes , rales, or rhonchi. GASTROINTESTINAL: Abdomen soft, non-tender, mildly distended. Normal active bowel sounds MUSCULOSKELETAL: Extremities without clubbing, cyanosis, and there is +2 edema NEURO: Alert & Oriented x4 to person, place, time, situation. Moves all ext x4 Pt update on day of discharge doing better clinically gi to see in clinic, as patient would like to go home for her birthday and has been stable over the last few days despite the hyponatremia and jaundice. I did discuss with her regarding the current findings and treatment plan, outpatient GI planned agreed to Hospital Course Seen and treated for acute liver failure. This has been stable over the last several days. She does also have some hyponatremia and weakness seemed to improve. GI was consulted will recommend outpatient follow-up Pt Condition on Discharge: Good Discharge Disposition: Disch w/ Home Health Serv Discharge Time: <= 30 minutes Discharge Instructions DIET: Follow Instructions for: As Tolerated, No Restrictions Activities you can perform: Regular-No Restrictions Follow up Referrals: Gastroenterology - 1 Week with Maggy Servin MD New Medications: Pentoxifylline ER (Pentoxifylline ER) 400 Mg Tab 400 MG PO BID for Intermittent claudication, #60 TAB 0 Refills Furosemide (Furosemide) 20 Mg Tab 20 MG PO BID@09,18 for edema, #62 TAB Continued Medications: Metoprolol Succinate ER 24 HR (Metoprolol Succinate ER 24 HR) 25 Mg Tab 25 MG PO DAILY, #30 TAB 0 Refills Spironolactone (Spironolactone) 50 Mg Tab 50 MG PO DAILY for EDEMA, #30 TAB 0 Refills (This prescription has been renewed) Discontinued Medications: Furosemide (Lasix) 20 Mg Tab 20 MG PO DAILY, #30 TAB 0 Refills Potassium Chloride ER (Potassium Chloride ER) 20 Meq Tab 80 MEQ PO BID for Electrolyte Replacement, #60 TAB 0 Refills Fozia Stein MD Jan 06, 2018 10:16
[2018-01-06 11:00] VITALS: BP 98/64; PULSE 80; RESP 20; TEMP 96.1; O2SAT 95
== END 2018-01-06 13:29 | disposition home health service (06) | DRG 442 ==
LOC: PHED 13:57 → PHEDA 18:10 → PH3A 20:25
PROVIDERS: ADMIT Hospitalist; ATTEND Hospitalist
PROC: 0W9G3ZZ Drainage of Peritoneal Cavity, Percutaneous Approach (ICD-10-PCS; principal; 2018-01-02)
PROC: 0W9G3ZZ Drainage of Peritoneal Cavity, Percutaneous Approach (ICD-10-PCS; 2018-01-04)
DX: K72.00 Acute and subacute hepatic failure without coma (principal); E87.1 Hypo-osmolality and hyponatremia; I95.9 Hypotension, unspecified; E87.5 Hyperkalemia; R18.8 Other ascites; K70.0 Alcoholic fatty liver; F10.20 Alcohol dependence, uncomplicated; Y90.9 Presence of alcohol in blood, level not specified; Z88.0 Allergy status to penicillin; Z88.1 Allergy status to other antibiotic agents
CPT/HCPCS: 49083; 71045; 76705; 80053; 80074; 81001; 82042; 82140; 82150; 82945; 83615; 83690; 83880; 83930; 83935; 84132; 84157; 84300; 84484; 85007; 85027; 85610; 85730; 87040; 87070; 87205; 89051; 93005; 93306; 96374; C1729; J1885; J1940; J1956; J2270; J2405

== ENCOUNTER 2018-01-11 01:11 | Inpatient (IN) | payer SELFPAY ==
[~2018-01-11] VITALS: Ht 167.6 cm; Wt 68.0 kg
[2018-01-11] VITALS (24 sets, daily range): BP systolic 77–114; BP diastolic 48–71; PULSE 82–140; RESP 18–42; TEMP 97.3–98.6; O2SAT 85–100
[~2018-01-11 01:11] MED LIST changes: -CYCL-36 PO; -DARV PO; +FURO20TA PO; -LORT7.5T3 PO; -MEDR4PAK3 PO; +METO1TAB42 PO; +PENT400T PO; +SPIR50TA PO
[2018-01-11] MEDS ORDERED: AZTREONAM INJ 2,000 MG in SODIUM CHLORIDE 0.9% INJ 100 ML IV STA (01:25)
[2018-01-11] MEDS ORDERED: SODIUM CHLOR 0.9% 1000 ML INJ 1,000 ML IV SCH (01:25)
[2018-01-11] MEDS ORDERED: metroNIDAZOLE 500 MG INJ 100 ML IV STA (01:25)
[2018-01-11] MEDS ORDERED: VANCOMYCIN INJ 1,000 MG in SODIUM CHLOR 0.9% 250 ML INJ 250 ML IV STA (01:25)
[2018-01-11] MEDS ORDERED: SODIUM CHLORIDE 0.9% FLUSH 10 ML FLUSH IV FLUSH PRN ×2 (01:30→07:00)
[2018-01-11] MEDS ORDERED: SODIUM CHLORID 0.9% 500 ML INJ 500 ML IV ONE ×2 (01:30→03:45)
[2018-01-11] MEDS ORDERED: ONDANSETRON HCL 4 MG/2 ML VIAL IVP ONE (01:30)
[2018-01-11 02:19] LABS: HEMATOCRIT 38.3 % (35.0-46.0); MEAN CELL VOLUME 103.5 FL (80.0-100.0); MEAN CORPUSCULAR HEMOGLOBIN 35.2 PG (27.0-34.0); MEAN PLATELET VOLUME 8.7 FL (7.0-11.0); PLATELET COUNT 246 TH/MM3 (150-450); RED CELL DISTRIBUTION WIDTH 18.7 % (11.6-17.2); WHITE BLOOD COUNT 11.5 TH/MM3 (4.0-11.0)
--- NOTE | 2018-01-11 02:26 | RADRPT ---
EXAM DATE/TIME: 01/11/2018 02:09 [facility] COMPARISON: No previous studies available for comparison. INDICATIONS : Shortness of breath. MEDICAL HISTORY : Cirrhosis. SURGICAL HISTORY : None. ENCOUNTER: Initial ACUITY: 1 day PAIN SCORE: 0/10 LOCATION: Bilateral chest FINDINGS: A single view of the chest demonstrates subsegmental airspace disease at the lung bases, possibly ate lectasis. The cardiomediastinal contours are unremarkable. Osseous structures are intact. CONCLUSION: Subsegmental airspace disease at the lung bases, possibly atelectasis. Dion Pagan MD on January 11, 2018 at 2:24 Board Certified Radiologist. This report was verified electronically.
[2018-01-11] MEDS ORDERED: MORPHINE SULFATE 2 MG/ML SYRINGE IV PUSH ONE ×2 (02:30→06:30)
[2018-01-11 02:31] LABS: ALBUMIN 1.8 GM/DL (3.4-5.0); BICARBONATE 21.6 MEQ/L (21.0-32.0); CALCIUM 7.7 MG/DL (8.5-10.1)
[2018-01-11 02:33] LABS: INTERNATIONAL NORMALIZED RATIO 1.5 RATIO; PROTHROMBIN TIME - PATIENT 15.2 SEC (9.8-11.6)
[2018-01-11 02:34] LABS: CREATININE 0.87 MG/DL (0.50-1.00)
[2018-01-11 02:36] LABS: TOTAL BILIRUBIN ADULT 5.1 MG/DL (0.2-1.0); TOTAL PROTEIN 5.8 GM/DL (6.4-8.2)
--- NOTE | 2018-01-11 02:36 | PD ---
HPI Chief Complaint: Abdominal Pain Time Seen by Provider: 01:25 Travel History International Travel<30 days: No Contact w/Intl Traveler<30days: No Traveled to known affect area: No History of Present Illness HPI 58-year-old female presents to the emergency department by private transportation the care of her spouse for evaluation of severe abdominal pain. Patient was recently hospitalized 01/02/18 through 01/06/18 for evaluation of liver failure with ascites. During her hospitalization she underwent paracentesis of 4-1/2 L of ascitic fluid and was discharged with recommendation for follow-up with GI and has an appointment with Dr. Ball to next week. No report of fever or chills. Patient previous alcohol consumer but no alcohol since hospitalization. Patient was also identified to have hyponatremia and hyperkalemia. Patient was initially treated for possible spontaneous bacterial peritonitis as ultrasound was performed in the emergency department white blood cells were noted however cultures were negative at 72 hours. Patient was discharged on spironolactone metoprolol and pentoxifylline. Patient complains of severe abdominal pain. reports recurrence of abdominal distention over the past several days but lower extremities are markedly improved without any lower extremity edema since discharge from hospital. PFSH Past Medical History Narrative Medical Cirrhosis liver failure hyponatremia hyperkalemia hypotension paracentesis; alcohol abuse; nursing notes reviewed Cancer: No Cardiovascular Problems: No Chemotherapy: No Cirrhosis: Yes (w/ascites ) Diabetes: No Diminished Hearing: No Endocrine: No Genitourinary: No Immune Disorder: No Musculoskeletal: Yes Neurologic: No Psychiatric: No Reproductive: No Respiratory: No Radiation Therapy: No Thyroid Disease: No Past Surgical History Other Surgery: Yes (BACK AND RIGHT ARM SX) Social History Alcohol Use: Yes (couple drinks every 2 days) Tobacco Use: No Substance Use: No Allergies-Medications (Allergen,Severity, Reaction): Coded Allergies: doxycycline (Unverified Allergy, Severe, 01/11/18) minocycline (Unverified Allergy, Severe, 01/11/18) penicillin G (Unverified Allergy, Severe, 01/11/18) tigecycline (Unverified Allergy, Severe, 01/11/18) Reported Meds & Prescriptions Reported Meds & Active Scripts Active Pentoxifylline ER (Pentoxifylline) 400 Mg Tab 400 Mg PO BID Furosemide 20 Mg Tab 20 Mg PO BID@09,18 Spironolactone 50 Mg Tab 50 Mg PO DAILY Reported Metoprolol Succinate ER 24 HR (Metoprolol Succinate) 25 Mg Tab 25 Mg PO DAILY Review of Systems Except as stated in HPI: all other systems reviewed are Neg General / Constitutional: Positive: Chills, No: Fever HENT: No: Congestion Cardiovascular: No: Chest Pain or Discomfort Respiratory: Positive: Shortness of Breath Gastrointestinal: Positive: Abdominal Pain Genitourinary: No: Flank Pain Musculoskeletal: No: Pain Skin: No Rash Neurologic: Positive: Weakness Psychiatric: Positive: Anxiety Hematologic/Lymphatic: Positive: Easy Bruising Physical Exam Narrative GENERAL: Very ill-appearing female with jaundice and diffuse ecchymosis in acute discomfort no respiratory distress SKIN: Warm and dry. HEAD: Normocephalic. EYES: No scleral icterus. No injection or drainage. NECK: Supple, trachea midline. No JVD or lymphadenopathy. CARDIOVASCULAR: Increased regular rate and rhythm without murmurs, gallops, or rubs. RESPIRATORY: Breath sounds equal bilaterally. No accessory muscle use. GASTROINTESTINAL: Abdomen soft, markedly tender to palpation with voluntary guarding and rebound, distended with fluid wave. MUSCULOSKELETAL: No cyanosis, or edema. BACK: Nontender without obvious deformity. No CVA tenderness. Data Data Last Documented VS Vital Signs Date Time Temp Pulse Resp B/P (MAP) Pulse Ox O2 Delivery O2 Flow Rate FiO2 01/11/18 03:18 100 20 87/60 (69) 100 Nasal Cannula 2.00 01/11/18 01:14 97.4 Orders Orders Complete Blood Count With Diff (01/11/18 01:25) Comprehensive Metabolic Panel (01/11/18 01:25) Lipase (01/11/18 01:25) Lactic Acid (01/11/18:25) Prothrombin Time / Inr (Pt) (01/11/18:25) Act Partial Throm Time (Ptt) (01/11/18:25) Urinalysis - C+S If Indicated (01/11/18:25) Ct Abd/Pel W Iv Contrast(Rout) (01/11/18 01:25) Iv Access Insert/Monitor (01/11/18 01:25) Ecg Monitoring (01/11/18:25) Oximetry (01/11/18 01:25) Ondansetron Inj (Zofran Inj) (4/23/18 01:30) Sodium Chlor 0.9% 1000 Ml Inj (Ns 1000 M (01/11/18 01:25) Sodium Chloride 0.9% Flush (Ns Flush) (01/11/18 01:30) Electrocardiogram (01/11/18 01:25) Chest, Single Ap (01/11/18 01:25) Ammonia (01/11/18 01:25) Blood Culture (01/11/18 01:25) Vancomycin Inj (Vancomycin Inj) (01/11/18 01:25) Aztreonam Inj (Azactam Inj) (01/11/18 01:25) Metronidazole 500 Mg Inj (Flagyl 500 Mg (01/11/18 01:25) Sodium Chlorid 0.9% 500 Ml Inj (Ns 500 M (01/11/18 01:30) Type And Screen (01/11/18 01:25) Arterial Blood Gas (Abg) (01/11/18 01:50) Magnesium (Mg) (01/11/18 01:25) Morphine Inj (Morphine Inj) (01/11/18 02:30) Urinary Catheter Insert/Apply (01/11/18 02:36) Thiamine Inj (Thiamine Inj) (01/11/18 03:00) Dext 5%-Nacl 0.9% 1000 Ml Inj (D5w-Ns 10 (01/11/18 03:00) Iohexol 350 Inj (Omnipaque 350 Inj) (01/11/18 03:20) Admit Order (Ed Use Only) (01/11/18 ) Lead Electrical Controls Engineer / Telemetry ELIAN.[email or web address] (01/11/18 03:35) Diet Npo (01/11/18 Breakfast) Activity Bed Rest (01/11/18 03:35) Notify Dr: Other (01/11/18 03:35) Sodium Chlorid 0.9% 500 Ml Inj (Ns 500 M (01/11/18 03:45) Labs Laboratory Tests Test 01/11/18 01:50 01/11/18 03:25 White Blood Count 11.5 TH/MM3 Red Blood Count 3.70 MIL/MM3 Hemoglobin 13.0 GM/DL Hematocrit 38.3 % Mean Corpuscular Volume 103.5 FL Mean Corpuscular Hemoglobin 35.2 PG Mean Corpuscular Hemoglobin Concent 34.0 % Red Cell Distribution Width 18.7 % Platelet Count 246 TH/MM3 Mean Platelet Volume 8.7 FL CBC Comment AUTO DIFF Differential Total Cells Counted 100 Neutrophils % (Manual) 70 % Band Neutrophils % 20 % Lymphocytes % 6 % Monocytes % 4 % Neutrophils # (Manual) 10.4 TH/MM3 Nucleated Red Blood Cells 1 /100 WBC Differential Comment FINAL DIFF MANUAL Platelet Estimate NORMAL Platelet Morphology Comment CLUMPED Prothrombin Time 15.2 SEC Prothromb Time International Ratio 1.5 RATIO Activated Partial Thromboplast Time 30.6 SEC Blood Gas Puncture Site RT BRACHIAL Blood Gas Patient Temperature 98.6 Blood Gas HCO3 19 mmol/L Blood Gas Base Excess -4.0 mmol/L Blood Gas Oxygen Saturation 97 % Arterial Blood pH 7.49 Arterial Blood Partial Pressure CO2 25 mmHG Arterial Blood Partial Pressure O2 138 mmHG Arterial Blood Oxygen Content 17.1 Vol % Arterial Blood Carboxyhemoglobin 1.5 % Arterial Blood Methemoglobin 1.0 % Blood Gas Hemoglobin 12.4 G/DL Oxygen Delivery Device NASAL CANNULA Blood Gas Liter Flow 3 L/M Blood Urea Nitrogen 28 MG/DL Creatinine 0.87 MG/DL Random Glucose 70 MG/DL Total Protein 5.8 GM/DL Albumin 1.8 GM/DL Calcium Level 7.7 MG/DL Magnesium Level 2.0 MG/DL Alkaline Phosphatase 356 U/L Aspartate Amino Transf (AST/SGOT) 147 U/L Alanine Aminotransferase (ALT/SGPT) 47 U/L Total Bilirubin 5.1 MG/DL Sodium Level 127 MEQ/L Potassium Level 3.7 MEQ/L Chloride Level 95 MEQ/L Carbon Dioxide Level 21.6 MEQ/L Anion Gap 10 MEQ/L Estimat Glomerular Filtration Rate 67 ML/MIN Lactic Acid Level 2.5 mmol/L Protein Corrected Calcium 8.4 MG/DL Ammonia 16 MCMOL/L Lipase 238 U/L Urine Collection Type CLEAN CATCH Urine Color YELLOW Urine Turbidity CLEAR Urine pH 5.5 Urine Specific [place] 1.020 Urine Protein NEG mg/dL Urine Glucose (UA) NEG mg/dL Urine Ketones TRACE mg/dL Urine Occult Blood NEG Urine Nitrite NEG Urine Bilirubin SMALL Urine Urobilinogen 1.0 MG/DL Urine Leukocyte Esterase NEG Urine WBC 0-2 /hpf Urine Squamous Epithelial Cells 0-5 /hpf Urine Amorphous Sediment FEW Urine Hyaline Casts 25-49 /lpf Urine Fine Granular Casts 3-5 /lpf Urine Mucus MOD /lpf Microscopic Urinalysis Comment CATH-CULT NOT IND MDM Medical Decision Making Medical Screen Exam Complete: Yes Emergency Medical Condition: Yes Medical Record Reviewed: Yes Interpretation(s) Lactic acid: 2.5 Last Impressions Chest X-Ray 01/11/18124 Signed Impressions: Service Date/Time: Thursday, January 11, 2018 02:09 - CONCLUSION: Subsegmental airspace disease at the lung bases, possibly atelectasis. Dion Pagan MD Abdomen/Pelvis CT 01/11/18124 Signed Impressions: Service Date/Time: Thursday, January 11, 2018 02:47 - CONCLUSION: 1. Diffuse mural thickening of the colon most characteristic of a colitis. Also mild mural edema of small bowel. 2. Liver cirrhosis with moderate to severe ascites and varices. 3. Small hiatal hernia. Tiny renal cysts. Dion Pagan MD CBC & BMP Diagram 01/11/18 01:50 Total Protein 5.8 L, Albumin 1.8 L, Calcium Level 7.7 L, Magnesium Level 2.0, Alkaline Phosphatase 356 H, Aspartate Amino Transf (AST/SGOT) 147 H, Alanine Aminotransferase (ALT/SGPT) 47, Total Bilirubin 5.1 H EKG sinus rhythm rate 98 with ectopy and poor R-wave progression anteroseptally , marked baseline artifact Vital Signs Date Time Temp Pulse Resp B/P (MAP) Pulse Ox O2 Delivery O2 Flow Rate FiO2 01/11/18 03:18 100 20 87/60 (69) 100 Nasal Cannula 2.00 01/11/18 02:30 104 18 114/49 (70) 98 01/11/18 02:19 104 20 92/60 (71) 98 01/11/18 02:00 82 111/54 (73) 01/11/18 01:30 97/55 (69) 01/11/18 01:14 97.4 140 20 94 Differential Diagnosis Abdominal pain, spontaneous bacterial peritonitis, hepatorenal failure, pancytopenia, hepatic encephalopathy, sepsis, septic shock, electrolyte disturbance, lactic acidosis Narrative Course Patient placed on ekg monitor tech with continuous pulse oximetry IV access obtained Difficulty with obtaining IV access therefore I placed a right external jugular with a 20-gauge Angiocath without difficulty or complication and [id number] Angiocath right upper extremity Specimens collected and sent for resulting ABG performed Patient with compensatory respiratory alkalosis metabolic acidosis; lactic acid 2.5 Patient with tachycardia bandemia marked abdominal tenderness with guarding and rebound consistent with peritonitis and elevated lactic acid and hypertension for severe sepsis; patient given fluid boluses with normal saline IV antibiotics administered aztreonam Flagyl and vancomycin due to penicillin allergy. CT abdomen pelvis performed results pending Patient's case discussed with on-call check viewer aware of hypotension but map has remained 65 or greater; at time of discharge 01/06/18 patient was discharged with hypotension and per patient and blood pressure typically runs 92/ 60. Jiang catheter inserted for monitoring fluids closely; review of medical records patient underwent echocardiogram during last hospitalization which identified EF of 50-60% and valvular heart disease with moderate to severe tricuspid valve regurgitation. Patient has had 30 cc/kg bolus plus additional bolus of 10 cc/kg and remains hypotensive therefore central line placed and patient started on Levophed for pressure support to keep map at least 65 Critical Care Narrative Aggregate critical care time was 35 minutes. Time to perform other separately billable procedures was not included in the critical care time. My time did not include minutes spent treating any other patients simultaneously or on activities that did not directly contribute to the patient's treatment. The services I provided to this patient were to treat and/or prevent clinically significant deterioration that could result in: Septic shock, respiratory arrest , I provided critical care services requiring my management, as noted below: Chart data review, documentation time, medication orders and management, vital sign assessments/reviewing monitor data, ordering and reviewing lab tests, ordering and interpreting/reviewing x-rays and diagnostic studies, care of the patient and discussion of the patient with the admitting physicians. Procedures Procedure Narrative CENTRAL VENOUS LINE: The site was prepped with Betadine and sterilely draped. It was infiltrated with 1% lidocaine plain. The deep vein was cannulated using normal Seldinger technique. A triple lumen central line was placed in the right femoral vein site and secured with simple interrupted suture. The site was sterilely dressed. The patient tolerated the procedure well. Sepsis Criteria SIRS Criteria (2 or more): Heart rate over 90, WBC > 54291, < 4000 or > 10% bands Sepsis Criteria (SIRS+source): Infect source susp/known Severe Sepsis (+one): Hypotension, Lactate >2 Physician Communication Physician Communication call placed to check viewer Diagnosis Primary Impression: Peritonitis Additional Impressions: Cirrhosis Hypotension Lactic acidosis Colitis Admitting Information Admitting Physician Requests: Admit Amena Hickey MD Jan 11, 2018 02:36
[2018-01-11] MEDS ORDERED: THIAMINE INJ 100 MG in SODIUM CHLORIDE 0.9% INJ 100 ML IV ONE (03:00)
[2018-01-11] MEDS ORDERED: DEXT 5%-NACL 0.9% 1000 ML INJ 1,000 ML IV SCH (03:00)
[2018-01-11] MEDS ORDERED: IOHEXOL 350 MG/ML 10 ML VIAL (for RAD DIAG) IVCONTRAST ONE (03:20)
[2018-01-11 03:27] LABS: BANDS 20 % (0-6); CORRECTED NUCLEATED RBC 1 /100 WBC (0-0); LYMPHOCYTES 6 % (9-44); MONOCYTES 4 % (0-8); NEUTROPHIL # MANUAL DIFF 10.4 TH/MM3 (1.8-7.7); NUCLEATED RED BLOOD CELL 1 (0-0); POLYS (SEG NEUTROPHILS) 70 % (16-70)
[2018-01-11 03:32] LABS: CALCIUM-PROTEIN CORRECTED 8.4 MG/DL (8.5-10.1)
[2018-01-11 03:35] LABS: BILIRUBIN, URINE SMALL (NEG); BLOOD, URINE NEG (NEG); GLUCOSE,URINE NEG (NEG); KETONE, URINE TRACE mg/dL (NEG); NITRITE,URINE NEG (NEG); PH, URINE 5.5 (5.0-8.5); URINE COLOR YELLOW (YELLW/STRAW); URINE LEUKOCYTE ESTERASE NEG (NEG)
--- NOTE | 2018-01-11 03:44 | RADRPT ---
EXAM DATE/TIME: 01/11/2018 02:47 [facility] COMPARISON: CT ABDOMEN & PELVIS W CONTRAST, December 28, 2017, 14:15. INDICATIONS : Abdominal pain. History of cirrhosis and ascites. IV CONTRAST: 75 cc Omnipaque 350 (iohexol) IV ORAL CONTRAST: No oral contrast ingested. RADIATION DOSE: 10.37 CTDIvol (mGy) MEDICAL HISTORY : Cirrhosis. SURGICAL HISTORY : None. ENCOUNTER: Initial ACUITY: 2 weeks PAIN SCALE: 10/10 LOCATION: Bilateral lower quadrant upper quadrant TECHNIQUE: Volumetric scanning of the abdomen and pelvis was performed. Using automated exposure control and ad justment of the mA and/or kV according to patient size, radiation dose was kept as low as reasonably achievable to obtain optimal diagnostic quality images. DICOM format image data is available electro nically for review and comparison. FINDINGS: Compare December 28, 2017. Small bilateral pleural effusions remain with some dependent atelectasis. Effu paulino slightly improved from December 28. There is liver cirrhosis with recanalized paraumbilical veins and mild varices around the distal esop hagus and upper retroperitoneum characteristic of portal hypertension. Moderate abdominal ascites and severe pelvic ascites. There is interval development of diffuse mural thickening of the colon most characteristic of a colit is. No free air. No bowel obstruction. Small bowel also appears mildly edematous in nature. No acute bony abnormalities. CONCLUSION: 1. Diffuse mural thickening of the colon most characteristic of a colitis. Also mild mural edema of s mall bowel. 2. Liver cirrhosis with moderate to severe ascites and varices. 3. Small hiatal hernia. Tiny renal cysts. Dion Pagan MD on January 11, 2018 at 3:38 Board Certified Radiologist. This report was verified electronically.
[2018-01-11] MEDS ORDERED: NOREPINEPHRINE-DEXTROSE DRIP 250 ML IV PRN (03:45)
[2018-01-11] MEDS ORDERED: TERBUTALINE INJ 1 MG/ML AMP SQ PRN (03:45)
[2018-01-11 03:53] LABS: MUCUS URINE MOD /lpf (OCC); SQUAMOUS EPITHELIAL CELL URINE 0-5 /hpf (0-5)
[2018-01-11 03:54] LABS: AMORPHOUS SEDIMENT, URINE FEW; WBC, URINE 0-2 /hpf (0-5)
[2018-01-11] MEDS ORDERED: ONDANSETRON HCL 4 MG/2 ML VIAL IV PUSH ONE (06:30)
[2018-01-11] MEDS ORDERED: CHLORHEXIDINE GLUCONATE 2 % 1 PACK (2 CLOTHS) TOP PRN (07:00)
[2018-01-11] MEDS ORDERED: SENNOSIDES 8.6 MG TAB PO PRN (07:00)
[2018-01-11] MEDS ORDERED: BISACODYL 10 MG SUPP RECTAL PRN (07:00)
[2018-01-11] MEDS ORDERED: ONDANSETRON HCL 4 MG/2 ML VIAL IV PUSH PRN (07:00)
[2018-01-11] MEDS ORDERED: MAGNESIUM HYDROXIDE SUSP 30 ML CUP PO PRN (07:00)
[2018-01-11] MEDS ORDERED: RESP: ALBUTEROL 2.5 MG/IPRATROPIUM 0.5 MG NEB (PRN) INH (07:00)
[2018-01-11] MEDS ORDERED: METOCLOPRAMIDE HCL 10 MG/2 ML VIAL IV PUSH PRN (07:00)
[2018-01-11] MEDS ORDERED: NURSING INFORMATION XX SCH (07:00)
[2018-01-11] MEDS ORDERED: LACTULOSE SYRUP 20 GM/30 ML CUP PO PRN (07:00)
[2018-01-11] MEDS ORDERED: GLUCAGON 1 MG/ML VIAL IM/SQ PRN (07:15)
[2018-01-11] MEDS ORDERED: DEXTROSE 50% IN WATER 50 ML VIAL(D50) IV PRN (07:15)
[2018-01-11] MEDS: ALBUMIN 25% INJ 50 ML IV SCH ×3 (07:30→20:27)
[2018-01-11] MEDS ORDERED: Vancomycin Consult Pharmacy 1 EA OTHER SCH (08:00)
[2018-01-11] MEDS ORDERED: DEXTROSE 5%-ELECTROLYTES R INJ 1,000 ML IV SCH (08:00)
[2018-01-11] MEDS: SODIUM CHLORIDE 0.9% FLUSH 10 ML FLUSH IV FLUSH SCH ×2 (08:16→20:27)
[2018-01-11] MEDS: PANTOPRAZOLE SODIUM 40 MG VIAL IV PUSH SCH (08:16)
[2018-01-11] MEDS: MORPHINE SULFATE 4 MG/ML INJ IV PUSH PRN ×3 (08:28→20:35)
[2018-01-11] MEDS: DEXT 5%-NACL 0.9% 1000 ML INJ 1,000 ML IV SCH ×3 (08:45→20:36)
--- NOTE | 2018-01-11 08:45 | HHI.HP ---
[facility] Service Critical Care Medicine Primary Care Physician Rocael De La Torre MD (Paul) Admission Diagnosis peritonitis; cirrhosis; sepsis Diagnosis: Travel History International Travel<30 Days: No Contact w/Intl Traveler <30 Da: No Traveled to Known Affected Are: No History of Present Illness HPI 58-year-old female presents to the emergency department by private transportation the care of her spouse for evaluation of severe abdominal pain. Patient was recently hospitalized 01/02/18 through 01/06/18 for evaluation of liver failure with ascites at [place]. During her hospitalization she underwent paracentesis of 4-1/2 L of ascitic fluid and was discharged with recommendation for follow-up with GI and had an appointment for next week. She did receive 1 dose of Levaquin during the hospitalization in the ER which was discontinued at the time since her ascites fluid did not suggest peritonitis and her peritoneal fluid cultures did not reveal any growth at 72 hours. No report of fever or chills. Patient previous alcohol consumer but no alcohol since last hospitalization about 10 days back. Patient was discharged on spironolactone metoprolol and pentoxifylline. Patient complains of severe abdominal pain which has worsened since her discharge on 01/06/18. She stated that her belly distention did not really improve significantly following her last paracentesis however her lower extremity swelling has significantly improved. She also has complained of some black stools going on for about 4-5 days. History PFSH Past Medical History Narrative Medical Cirrhosis liver failure hyponatremia hyperkalemia hypotension paracentesis; alcohol abuse; nursing notes reviewed Cancer: No Cardiovascular Problems: No Chemotherapy: No Cirrhosis: Yes (w/ascites ) Diabetes: No Diminished Hearing: No Endocrine: No Genitourinary: No Immune Disorder: No Musculoskeletal: Yes Neurologic: No Psychiatric: No Reproductive: No Respiratory: No Radiation Therapy: No Thyroid Disease: No Past Surgical History Other Surgery: Yes (BACK AND RIGHT ARM SX) Social History Alcohol Use: Yes (couple drinks every 2 days) Tobacco Use: No Substance Use: No Allergies-Medications Allergies-Medications (Allergen,Severity, Reaction): Coded Allergies: doxycycline (Unverified Allergy, Severe, 01/11/18) minocycline (Unverified Allergy, Severe, 01/11/18) penicillin G (Unverified Allergy, Severe, 01/11/18) tigecycline (Unverified Allergy, Severe, 01/11/18) Reported Meds & Prescriptions Reported Meds & Active Scripts Active Pentoxifylline ER (Pentoxifylline) 400 Mg Tab 400 Mg PO BID Furosemide 20 Mg Tab 20 Mg PO BID@ Spironolactone 50 Mg Tab 50 Mg PO DAILY Reported Metoprolol Succinate ER 24 HR (Metoprolol Succinate) 25 Mg Tab 25 Mg PO DAILY ROS Review of Systems Except as stated in HPI: all other systems reviewed are Neg General / Constitutional: Positive: Chills, No: Fever HENT: No: Congestion Cardiovascular: No: Chest Pain or Discomfort Respiratory: Positive: Shortness of Breath Gastrointestinal: Positive: Abdominal Pain Genitourinary: No: Flank Pain Musculoskeletal: No: Pain Skin: No Rash Neurologic: Positive: Weakness Psychiatric: Positive: Anxiety Hematologic/Lymphatic: Positive: Easy Bruising Physical Exam Vital Signs Vital Signs Date Time Temp Pulse Resp B/P (MAP) Pulse Ox O2 Delivery O2 Flow Rate FiO2 01/11/18 06:06 98.0 86 20 102/48 (66) 99 01/11/18 05:30 84 20 93/54 (67) 01/11/18 05:05 87 20 92/60 (71) 99 Nasal Cannula 2.00 01/11/18 04:30 84 20 81/53 (62) 100 Nasal Cannula 2.00 01/11/18 04:00 20 01/11/18 04:00 86 20 86/54 (65) 01/11/18 03:49 88 18 92/57 (69) 100 Nasal Cannula 2.00 01/11/18 03:41 85 18 77/58 (64) 100 Nasal Cannula 2.00 01/11/18 03:18 100 20 87/60 (69) 100 Nasal Cannula 2.00 01/11/18 02:30 104 18 114/49 (70) 98 01/11/18 02:19 104 20 92/60 (71) 98 01/11/18 02:00 20 01/11/18 02:00 82 111/54 (73) 01/11/18 01:30 97/55 (69) 01/11/18 01:14 97.4 140 20 94 Physical Exam Narrative GENERAL: Very ill-appearing female with jaundice and diffuse ecchymosis in acute discomfort no respiratory distress SKIN: Warm and dry. HEAD: Normocephalic. EYES: No scleral icterus. No injection or drainage. NECK: Supple, trachea midline. No JVD or lymphadenopathy. CARDIOVASCULAR: Increased regular rate and rhythm without murmurs, gallops, or rubs. RESPIRATORY: Breath sounds equal bilaterally. No accessory muscle use. No wheezing or crackles GASTROINTESTINAL: Abdomen soft, markedly tender to palpation with voluntary guarding and rebound, distended with fluid wave. Bowel sounds not appreciated. MUSCULOSKELETAL: Trace edema lower extremities. Laboratory Laboratory Tests Test 01/11/18 01:50 01/11/18 03:25 01/11/18 04:05 White Blood Count 11.5 Red Blood Count 3.70 Hemoglobin 13.0 Hematocrit 38.3 Mean Corpuscular Volume 103.5 Mean Corpuscular Hemoglobin 35.2 Mean Corpuscular Hemoglobin Concent 34.0 Red Cell Distribution Width 18.7 Platelet Count 246 Mean Platelet Volume 8.7 CBC Comment AUTO DIFF Differential Total Cells Counted 100 Neutrophils % (Manual) 70 Band Neutrophils % 20 Lymphocytes % 6 Monocytes % 4 Neutrophils # (Manual) 10.4 Nucleated Red Blood Cells 1 Differential Comment FINAL DIFF MANUAL Platelet Estimate NORMAL Platelet Morphology Comment CLUMPED Prothrombin Time 15.2 Prothromb Time International Ratio 1.5 Activated Partial Thromboplast Time 30.6 Blood Gas Puncture Site RT BRACHIAL Blood Gas Patient Temperature 98.6 Blood Gas HCO3 19 Blood Gas Base Excess -4.0 Blood Gas Oxygen Saturation 97 Arterial Blood pH 7.49 Arterial Blood Partial Pressure CO2 25 Arterial Blood Partial Pressure O2 138 Arterial Blood Oxygen Content 17.1 Arterial Blood Carboxyhemoglobin 1.5 Arterial Blood Methemoglobin 1.0 Blood Gas Hemoglobin 12.4 Oxygen Delivery Device NASAL CANNULA Blood Gas Liter Flow 3 Blood Urea Nitrogen 28 Creatinine 0.87 Random Glucose 70 Total Protein 5.8 Albumin 1.8 Calcium Level 7.7 Magnesium Level 2.0 Alkaline Phosphatase 356 Aspartate Amino Transf (AST/SGOT) 147 Alanine Aminotransferase (ALT/SGPT) 47 Total Bilirubin 5.1 Sodium Level 127 Potassium Level 3.7 Chloride Level 95 Carbon Dioxide Level 21.6 Anion Gap 10 Estimat Glomerular Filtration Rate 67 Lactic Acid Level 2.5 1.9 Protein Corrected Calcium 8.4 Ammonia 16 Lipase 238 Urine Collection Type CLEAN CATCH Urine Color YELLOW Urine Turbidity CLEAR Urine pH 5.5 Urine Specific Mcintosh 1.020 Urine Protein NEG Urine Glucose (UA) NEG Urine Ketones TRACE Urine Occult Blood NEG Urine Nitrite NEG Urine Bilirubin SMALL Urine Urobilinogen 1.0 Urine Leukocyte Esterase NEG Urine WBC 0-2 Urine Squamous Epithelial Cells 0-5 Urine Amorphous Sediment FEW Urine Hyaline Casts 25-49 Urine Fine Granular Casts 3-5 Urine Mucus MOD Microscopic Urinalysis Comment CATH-CULT NOT IND Date/Time Source Procedure Growth Status 01/11/18 01:55 Blood Peripheral Aerobic Blood Culture Pending Received 01/11/18 01:55 Blood Peripheral Anaerobic Blood Culture Pending Received Result Diagram: 01/11/18 0150 01/11/18 0150 Imaging Last Impressions Chest X-Ray 01/11/18124 Signed Impressions: Service Date/Time: Thursday, January 11, 2018 02:09 - CONCLUSION: Subsegmental airspace disease at the lung bases, possibly atelectasis. Dion Pagan MD Abdomen/Pelvis CT 01/11/18124 Signed Impressions: Service Date/Time: Thursday, January 11, 2018 02:47 - CONCLUSION: 1. Diffuse mural thickening of the colon most characteristic of a colitis. Also mild mural edema of small bowel. 2. Liver cirrhosis with moderate to severe ascites and varices. 3. Small hiatal hernia. Tiny renal cysts. Dion Pagan MD Septic Shock Reassessment Septic shock perfusion: reassessment completed Caprini VTE Risk Assessment Caprini VTE Risk Assessment: Mod/High Risk (score >= 2) Caprini Risk Assessment Model Point Value = 1 Point Value = 2 Point Value = 3 Point Value = 5 Age 41-60 Minor surgery BMI > 25 kg/m2 Swollen legs Varicose veins or History of unexplained or recurrent spontaneous Oral contraceptives or hormone replacement Sepsis (< 1 month) Serious lung disease, including pneumonia (< 1 month) Abnormal pulmonary function Acute myocardial infarction Congestive heart failure (< 1 month) History of inflammatory bowel disease Medical patient at bed rest Age 61-74 Arthroscopic surgery Major open surgery (> 45 min) Laparoscopic surgery (> 45 min) Malignancy Confined to bed (> 72 hours) Immobilizing plaster cast Central venous access Age >= 75 History of VTE Family history of VTE Factor V Leiden Prothrombin [id number] Lupus anticoagulant Anticardiolipin antibodies Elevated serum homocysteine Heparin-induced thrombocytopenia Other congenital or acquired thrombophilia Stroke (< 1 month) Elective arthroplasty Hip, pelvis, or leg fracture Acute spinal cord injury (< 1 month) Prophylaxis Regimen Total Risk Factor Score Risk Level Prophylaxis Regimen 0-1 Low Early ambulation 2 Moderate Order ONE of the following: *Sequential Compression Device (SCD) *Heparin 5000 units SQ BID 3-4 Higher Order ONE of the following medications: *Heparin 5000 units SQ TID *Enoxaparin/Lovenox 40 mg SQ daily (WT < 150 kg, CrCl > 30 mL/min) *Enoxaparin/Lovenox 30 mg SQ daily (WT < 150 kg, CrCl > 10-29 mL/min) *Enoxaparin/Lovenox 30 mg SQ BID (WT < 150 kg, CrCl > 30 mL/min) AND/OR *Sequential Compression Device (SCD) 5 or more Highest Order ONE of the following medications: *Heparin 5000 units SQ TID (Preferred with Epidurals) *Enoxaparin/Lovenox 40 mg SQ daily (WT < 150 kg, CrCl > 30 mL/min) *Enoxaparin/Lovenox 30 mg SQ daily (WT < 150 kg, CrCl > 10-29 mL/min) *Enoxaparin/Lovenox 30 mg SQ BID (WT < 150 kg, CrCl > 30 mL/min) AND *Sequential Compression Device (SCD) Assessment and Plan Assessment and Plan 58-year-old female with: Abdominal pain Sepsis Hypotension Liver cirrhosis Ascites Suspected peritonitis Colitis Jaundice Melena (at home) Plan: Neuro: Morphine as needed for pain. Follow neuro status. Cardiovascular: Continue IV fluids. Levophed for pressor support if needed. Albumin 25% 50 cc every 6 hourly 24 hours Pulmonary: Supplemental O2 as needed, bronchodilators as needed. GI/liver: N.p.o., GI and general surgery consulted in view of peritoneal signs and colitis on CT. We will proceed with diagnostic and therapeutic paracentesis. Renal/: IV hydration, strict intake output, monitor and replete electrodes, follow BUN/creatinine. ID: Follow-up blood cultures. Will send ascites fluid for Gram stain and cultures and further studies. Empiric antibiotic coverage with IV aztreonam/ vancomycin, p.o. Flagyl. Check stool for C. difficile. Colitis may be ischemic versus C. difficile. ID consult requested. Endocrine: SSI for glycemic control as needed. Heme: Follow CBC and coags. Prophylaxis: Protonix/SCDs/Lovenox Discussed with Dr. Telles from GI - will be evaluating the patient. Condition critical Time spent on critical care excluding procedures 50 minutes Sathya Griffin MD Jan 11, 2018 08:45
[2018-01-11] MEDS ORDERED: MORPHINE SULFATE 4 MG/ML INJ IV PUSH ONE (09:00)
--- NOTE | 2018-01-11 09:11 | PD.CONS ---
History of Present Illness Service Infectious disease Consult Requested By Dr Kunal Griffin Reason for Consult Evaluate patient with sepsis Primary Care Physician Rocael De La Torre MD (Paul) Diagnoses: History of Present Illness Patient seen and examined. Records reviewed. Very difficult to get good detailed history from patient, constantly moaning and having abdominal pain. Patient is a 58-year-old female with Dx of liver cirrhosis, presented to the hospital C/P worsening diffuse abdominal pain. She has had some vomiting and diarrhea at home. She was recently hospitalized January 02 - January 06 at [facility]. During that time she had liver failure with ascites, and underwent paracentesis with drainage of 4.5 L of fluid. Fluid analysis did not show any evidence of peritonitis. She received Levaquin, and when the peritoneal fluid came back negative she did not get any further antibiotics. She was discharged, and apparently started having severe abdominal pain which worsened. There was no mention of any fever or chills. Evaluation on this admission showed leukocytosis of 11,000. She is afebrile, and tachycardic which has improved. CT of the abdomen and pelvis showed moderate ascites and there is evidence of bowel wall thickening consistent with colitis. Patient underwent paracentesis this morning. She is currently complaining of severe abdominal pain. Infectious disease consultation has been requested to evaluate the patient for sepsis. Review of Systems Constitutional: DENIES: Fever, Chills Eyes: DENIES: Eye pain Ears, nose, mouth, throat: DENIES: Nasal discharge, Oral lesions, Throat pain, Sinus Pain Respiratory: DENIES: Cough, Shortness of breath Cardiovascular: DENIES: Chest pain, Palpitations Gastrointestinal: COMPLAINS OF: Abdominal pain, Diarrhea, Nausea, Vomiting, Anorexia, DENIES: Difficulty Swallowing Genitourinary: DENIES: Urgency, Dysuria Integumentary: DENIES: Pruritus Neurologic: DENIES: Localized weakness Psychiatric: DENIES: Hallucinations Past Family Social History Allergies: Coded Allergies: doxycycline (Unverified Allergy, Severe, 01/11/18) minocycline (Unverified Allergy, Severe, 01/11/18) penicillin G (Unverified Allergy, Severe, 01/11/18) tigecycline (Unverified Allergy, Severe, 01/11/18) Past Medical History Liver cirrhosis Back pain Arthritis Active Ordered Medications Current Medications Medications (Trade) Dose Ordered Sig/Dmitri Route Start Time Stop Time Status Last Admin Sodium Chloride 1,000 ml @ 125 mls/hr Q8H IV 01/11/18 01:25 01/11/18 09:24 01/11/18 02:16 Norepinephrine Bitartrate 250 ml @ 7.5 mls/hr TITRATE PRN IV 01/11/18 03:45 (Brethine Inj) 1 mg UNSCH PRN SQ 01/11/18 03:45 (NS Flush) 2 ml UNSCH PRN IV FLUSH 01/11/18 07:00 (NS Flush) 2 ml BID IV FLUSH 01/11/18 09:00 01/11/18 08:16 (Morphine Inj) 4 mg Q4HR PRN IV PUSH 01/11/18 07:00 01/11/18 08:28 (Protonix Inj) 40 mg DAILY IV PUSH 01/11/18 09:00 01/11/18 08:16 (Zofran Inj) 4 mg Q6H PRN IV PUSH 01/11/18 07:00 (Reglan Inj) 10 mg Q6H PRN IV PUSH 01/11/18 07:00 (Duoneb Neb) 1 ampule Q2HR NEB PRN INH 01/11/18 07:00 (Lovenox Inj) 40 mg Q24H SQ 01/11/18 16:00 Miscellaneous Information 1 Q361D XX 01/11/18 07:00 (Chlorhexidine 2% Cloth) 3 pack Taper DAILY@04 TOP 01/12/18 04:00 01/08/19 03:59 (Chlorhexidine 2% Cloth) 3 pack UNSCH PRN TOP 01/11/18 07:00 (Floresita-Colace) 1 tab BID PO 01/11/18 09:00 (Milk Of Magnesia Liq) 30 ml Q12H PRN PO 01/11/18 07:00 (Senokot) 17.2 mg Q12H PRN PO 01/11/18 07:00 (Dulcolax Supp) 10 mg DAILY PRN RECTAL 01/11/18 07:00 (Lactulose Liq) 30 ml DAILY PRN PO 01/11/18 07:00 Aztreonam 2000 mg/ Sodium Chloride 100 ml @ 200 mls/hr Q8H IV 01/11/18 10:00 (Flagyl) 500 mg Q8H PO 01/11/18 10:00 Pharmacy Profile Note 0 ml @ 0 mls/hr UNSCH OTHER 01/11/18 08:00 (NovoLOG SUPPLEMENTAL SCALE) 1 Q6HR SQ 01/11/18 12:00 (D50w (Vial) Inj) 25 ml UNSCH PRN IV 01/11/18 07:15 (Glucagon Inj) 1 mg UNSCH PRN IM/SQ 01/11/18 07:15 Albumin Human 50 ml @ 60 mls/hr Q6H IV 01/11/18 07:30 01/12/18 12:00 01/11/18 07:30 Vancomycin HCl 1000 mg/Sodium Chloride 250 ml @ 250 mls/hr Q18H IV 01/11/18 20:00 Miscellaneous Information SPECIFIC LAB TO BE DRAWN:VANCOMY... ONCE ONCE .XX 01/13/18 07:45 01/13/18 07:46 Dextrose/Sodium Chloride 1,000 ml @ 125 mls/hr Q8H IV 01/11/18 09:15 Family History Noncontributory Social History Drinks 2 alcoholic drinks per day, per records quit about a month ago Denies smoking Denies illicit drugs Physical Exam Vital Signs Vital Signs Date Time Temp Pulse Resp B/P (MAP) Pulse Ox O2 Delivery O2 Flow Rate FiO2 01/11/18 06:06 98.0 86 20 102/48 (66) 99 01/11/18 05:30 84 20 93/54 (67) 01/11/18 05:05 87 20 92/60 (71) 99 Nasal Cannula 2.00 01/11/18 04:30 84 20 81/53 (62) 100 Nasal Cannula 2.00 01/11/18 04:00 20 01/11/18 04:00 86 20 86/54 (65) 01/11/18 03:49 88 18 92/57 (69) 100 Nasal Cannula 2.00 01/11/18 03:41 85 18 77/58 (64) 100 Nasal Cannula 2.00 01/11/18 03:18 100 20 87/60 (69) 100 Nasal Cannula 2.00 01/11/18 02:30 104 18 114/49 (70) 98 01/11/18 02:19 104 20 92/60 (71) 98 01/11/18 02:00 20 01/11/18 02:00 82 111/54 (73) 01/11/18 01:30 97/55 (69) 01/11/18 01:14 97.4 140 20 94 Physical Exam GENERAL: Patient is a thin, well-developed female, awake and answers some questions though she was constantly moaning due to pain. Looks chronically ill appearing, not in respiratory distress. SKIN: Cool and dry. Has scattered purpuric areas, has jaundice. HEAD: Atraumatic. Normocephalic. No temporal wasting, or tenderness. EYES: Pale conjunctiva. No petechia or hemorrhage. Pupils equal, round and reactive to light. Extraocular movements full and intact. Has scleral icterus. No injection or drainage. EARS, NOSE AND THROAT: Nose without bleeding or purulent nasal discharge. No sinus tenderness. Dry oral mucosa. NECK: Trachea midline. Supple and not tender, no meningeal signs. Has fatty pad tissue at base of both neck CARDIOVASCULAR: Regular rate and rhythm. No murmurs, rubs or gallops heard RESPIRATORY: Clear to auscultation. Breath sounds equal bilaterally. No rales , wheezing or rhonchi. Decreased breath sounds at bases. ABDOMEN: Soft, mildly distended, just had paracentesis done, took out about 4+L of turbid, ascitic fluid. Hypactive bowel sounds, has diffuse tenderness with some guarding and rebound. EXTREMITIES: No clubbing, cyanosis. Has bilateral pitting pedal edema. No joint effusion, has good ROM. No calf tenderness. Well perfused and warm. NEUROLOGICAL: Awake and answering my questions. Cranial nerves grossly intact. Motor grossly within normal limits. PSYCHIATRIC: cooperative. LINE: No evidence of infection Laboratory Laboratory Tests Test 01/11/18 01:50 01/11/18 03:25 01/11/18 04:05 01/11/18 07:00 White Blood Count 11.5 Red Blood Count 3.70 Hemoglobin 13.0 Hematocrit 38.3 Mean Corpuscular Volume 103.5 Mean Corpuscular Hemoglobin 35.2 Mean Corpuscular Hemoglobin Concent 34.0 Red Cell Distribution Width 18.7 Platelet Count 246 Mean Platelet Volume 8.7 CBC Comment AUTO DIFF Differential Total Cells Counted 100 Neutrophils % (Manual) 70 Band Neutrophils % 20 Lymphocytes % 6 Monocytes % 4 Neutrophils # (Manual) 10.4 Nucleated Red Blood Cells 1 Differential Comment FINAL DIFF MANUAL Platelet Estimate NORMAL Platelet Morphology Comment CLUMPED Prothrombin Time 15.2 Prothromb Time International Ratio 1.5 Activated Partial Thromboplast Time 30.6 Blood Gas Puncture Site RT BRACHIAL Blood Gas Patient Temperature 98.6 Blood Gas HCO3 19 Blood Gas Base Excess -4.0 Blood Gas Oxygen Saturation 97 Arterial Blood pH 7.49 Arterial Blood Partial Pressure CO2 25 Arterial Blood Partial Pressure O2 138 Arterial Blood Oxygen Content 17.1 Arterial Blood Carboxyhemoglobin 1.5 Arterial Blood Methemoglobin 1.0 Blood Gas Hemoglobin 12.4 Oxygen Delivery Device NASAL CANNULA Blood Gas Liter Flow 3 Blood Urea Nitrogen 28 Creatinine 0.87 Random Glucose 70 Total Protein 5.8 Albumin 1.8 Calcium Level 7.7 Magnesium Level 2.0 Alkaline Phosphatase 356 Aspartate Amino Transf (AST/SGOT) 147 Alanine Aminotransferase (ALT/SGPT) 47 Total Bilirubin 5.1 Sodium Level 127 Potassium Level 3.7 Chloride Level 95 Carbon Dioxide Level 21.6 Anion Gap 10 Estimat Glomerular Filtration Rate 67 Lactic Acid Level 2.5 1.9 Protein Corrected Calcium 8.4 Ammonia 16 Lipase 238 Urine Collection Type CLEAN CATCH Urine Color YELLOW Urine Turbidity CLEAR Urine pH 5.5 Urine Specific Lamar 1.020 Urine Protein NEG Urine Glucose (UA) NEG Urine Ketones TRACE Urine Occult Blood NEG Urine Nitrite NEG Urine Bilirubin SMALL Urine Urobilinogen 1.0 Urine Leukocyte Esterase NEG Urine WBC 0-2 Urine Squamous Epithelial Cells 0-5 Urine Amorphous Sediment FEW Urine Hyaline Casts 25-49 Urine Fine Granular Casts 3-5 Urine Mucus MOD Microscopic Urinalysis Comment CATH-CULT NOT IND Date/Time Source Procedure Growth Status 01/11/18 01:55 Blood Peripheral Aerobic Blood Culture Pending Received 01/11/18 01:55 Blood Peripheral Anaerobic Blood Culture Pending Received Result Diagram: 01/11/18 0150 01/11/18 015 Imaging RADIOLOGY STUDIES/FILMS REVIEWED Last Impressions Chest X-Ray 01/11/18124 Signed Impressions: Service Date/Time: Thursday, January 11, 2018 02:09 - CONCLUSION: Subsegmental airspace disease at the lung bases, possibly atelectasis. Dion Pagan MD Abdomen/Pelvis CT 01/11/18124 Signed Impressions: Service Date/Time: Thursday, January 11, 2018 02:47 - CONCLUSION: 1. Diffuse mural thickening of the colon most characteristic of a colitis. Also mild mural edema of small bowel. 2. Liver cirrhosis with moderate to severe ascites and varices. 3. Small hiatal hernia. Tiny renal cysts. Dion Pagan MD Assessment and Plan Assessment and Plan IMPRESSION Severe abdominal pain, ?SBP, has colitis on CT, ?C diff colitis Colitis on CT, had some diarrhea, R/O C diff Liver cirrhosis, with portal HTN, prob ETOH etiology - hepatitis serologies negative RECOMMENDATION Send stool for C diff Follow fluid analysis and cultures Agree with empiric Abx: Azactam, Vanco IV, Flagyl Follow C/S Monitor progress I will follow along with you Thank you for this consultation Discussed Condition With D/W RN D/W Dr Kunal Griffin ([facility]) Rocio Bazzi MD Jan 11, 2018 09:11
[2018-01-11] MEDS: AZTREONAM INJ 2,000 MG in SODIUM CHLORIDE 0.9% INJ 100 ML IV SCH ×2 (09:51→16:52)
[2018-01-11] MEDS: DOCUSATE SODIUM 50 MG/SENNA 8.6 MG TAB PO SCH ×2 (09:51→20:26)
[2018-01-11] MEDS: metroNIDAZOLE 500 MG TAB PO SCH ×2 (09:51→16:51)
--- NOTE | 2018-01-11 09:51 | PD.PROCEDR ---
Procedure Note Procedure Procedure: Ultrasound-guided abdominal paracentesis Preoperative diagnosis: ascites, suspected SBP, sepsis, cirrhosis, colitis Postop diagnosis: same Informed consent obtained from patient and documented on chart. Anesthesia used: 1% lidocaine for local infiltration anesthesia Procedure: Ultrasound was used to locate ascites in right lower quadrant After sterile prepping and draping using 1% lidocaine for local infiltration anesthesia, peritoneal cavity was entered using thoracentesis needle and thoracentesis catheter was advanced into the peritoneal cavity as evidenced by return of greenish/ yellow ascites fluid and needle was removed. After connecting tubing, peritoneal fluid was drained using Vacutainer bottles. Approximately 4 Liters of acetic fluid was drained. Specimen was collected for lab studies and cultures. Subsequently drainage catheter was removed and dressing was applied to the site. Patient tolerated procedure well with no immediate complications noted. Sathya Griffin MD Jan 11, 2018 09:51
[2018-01-11 10:35] LABS: TOTAL PROTEIN,PERITONEAL FLUID 1.8 GM/DL
--- NOTE | 2018-01-11 11:37 | PD.CONS ---
HPI History of Present Illness This is a 58 year old female with etoh abuse, cirrhosis who presented with abd pain. She admits severe diffuse abd pain. Endorses black tarry stool for the last 2 weeks. She was recently hospitalied earlier this month for eval of liver failure at which time she had a paracentesis and cultures showed no growth at 72h. She also had paracentesis this morning. She has never had EGD or colonoscopy. Pt unable to provide much hx, hx obtained from RN, EMR. (Milly Cline) PFSH Past Medical History cirrhosis, liver failure, etoh Past Surgical History back surgery arm surgery (Milly Cline) Coded Allergies: doxycycline (Unverified Allergy, Severe, 01/11/18) minocycline (Unverified Allergy, Severe, 01/11/18) penicillin G (Unverified Allergy, Severe, 01/11/18) tigecycline (Unverified Allergy, Severe, 01/11/18) Family History unk Social History hx heavy drinking but per EMR no etoh 10d no tobacco or illicit drug use (Milly Cline) Review of Systems Gastrointestinal: COMPLAINS OF: Abdominal pain, Black stools otherwise noncontributory (Milly Cline) GI Exam Vitals I&O Vital Signs Date Time Temp Pulse Resp B/P (MAP) Pulse Ox O2 Delivery O2 Flow Rate FiO2 01/11/18 11:00 98.4 92 27 95/71 (79) 93 01/11/18 10:00 129 01/11/18 10:00 98.6 129 31 85 01/11/18 09:30 12 01/11/18 09:00 98.2 92 25 101/63 (76) 98 01/11/18 08:00 98.2 85 21 89/56 (67) 94 01/11/18 08:00 85 01/11/18 06:06 98.0 86 20 102/48 (66) 99 01/11/18 05:30 84 20 93/54 (67) 01/11/18 05:05 87 20 92/60 (71) 99 Nasal Cannula 2.00 01/11/18 04:30 84 20 81/53 (62) 100 Nasal Cannula 2.00 01/11/18 04:00 20 01/11/18 04:00 86 20 86/54 (65) 01/11/18 03:49 88 18 92/57 (69) 100 Nasal Cannula 2.00 01/11/18 03:41 85 18 77/58 (64) 100 Nasal Cannula 2.00 01/11/18 03:18 100 20 87/60 (69) 100 Nasal Cannula 2.00 01/11/18 02:30 104 18 114/49 (70) 98 01/11/18 02:19 104 20 92/60 (71) 98 01/11/18 02:00 20 01/11/18 02:00 82 111/54 (73) 01/11/18 01:30 97/55 (69) 01/11/18 01:14 97.4 140 20 94 I/O 01/10/18 01/10/18 01/10/18 01/11/18 01/11/18 01/11/18 07:00 15:00 23:00 07:00 15:00 23:00 Intake Total 1950 ml Output Total 275 ml Balance 1675 ml Intake IV Total 1950 ml Output Urine Total 275 ml Imaging Last Impressions Chest X-Ray 01/11/18124 Signed Impressions: Service Date/Time: Thursday, January 11, 2018 02:09 - CONCLUSION: Subsegmental airspace disease at the lung bases, possibly atelectasis. Dion Pagan MD Abdomen/Pelvis CT 01/11/18124 Signed Impressions: Service Date/Time: Thursday, January 11, 2018 02:47 - CONCLUSION: 1. Diffuse mural thickening of the colon most characteristic of a colitis. Also mild mural edema of small bowel. 2. Liver cirrhosis with moderate to severe ascites and varices. 3. Small hiatal hernia. Tiny renal cysts. Dion Pagan MD Laboratory Test 01/11/18 01:50 01/11/18 03:25 01/11/18 04:05 01/11/18 07:00 White Blood Count 11.5 TH/MM3 Red Blood Count 3.70 MIL/MM3 Hemoglobin 13.0 GM/DL Hematocrit 38.3 % Mean Corpuscular Volume 103.5 FL Mean Corpuscular Hemoglobin 35.2 PG Mean Corpuscular Hemoglobin Concent 34.0 % Red Cell Distribution Width 18.7 % Platelet Count 246 TH/MM3 Mean Platelet Volume 8.7 FL CBC Comment AUTO DIFF Differential Total Cells Counted 100 Neutrophils % (Manual) 70 % Band Neutrophils % 20 % Lymphocytes % 6 % Monocytes % 4 % Neutrophils # (Manual) 10.4 TH/MM3 Nucleated Red Blood Cells 1 /100 WBC Differential Comment FINAL DIFF MANUAL Platelet Estimate NORMAL Platelet Morphology Comment CLUMPED Prothrombin Time 15.2 SEC Prothromb Time International Ratio 1.5 RATIO Activated Partial Thromboplast Time 30.6 SEC Blood Gas Puncture Site RT BRACHIAL Blood Gas Patient Temperature 98.6 Blood Gas HCO3 19 mmol/L Blood Gas Base Excess -4.0 mmol/L Blood Gas Oxygen Saturation 97 % Arterial Blood pH 7.49 Arterial Blood Partial Pressure CO2 25 mmHG Arterial Blood Partial Pressure O2 138 mmHG Arterial Blood Oxygen Content 17.1 Vol % Arterial Blood Carboxyhemoglobin 1.5 % Arterial Blood Methemoglobin 1.0 % Blood Gas Hemoglobin 12.4 G/DL Oxygen Delivery Device NASAL CANNULA Blood Gas Liter Flow 3 L/M Blood Urea Nitrogen 28 MG/DL Creatinine 0.87 MG/DL Random Glucose 70 MG/DL Total Protein 5.8 GM/DL Albumin 1.8 GM/DL Calcium Level 7.7 MG/DL Magnesium Level 2.0 MG/DL Alkaline Phosphatase 356 U/L Aspartate Amino Transf (AST/SGOT) 147 U/L Alanine Aminotransferase (ALT/SGPT) 47 U/L Total Bilirubin 5.1 MG/DL Sodium Level 127 MEQ/L Potassium Level 3.7 MEQ/L Chloride Level 95 MEQ/L Carbon Dioxide Level 21.6 MEQ/L Anion Gap 10 MEQ/L Estimat Glomerular Filtration Rate 67 ML/MIN Lactic Acid Level 2.5 mmol/L 1.9 mmol/L Protein Corrected Calcium 8.4 MG/DL Ammonia 16 MCMOL/L Lipase 238 U/L Urine Collection Type CLEAN CATCH Urine Color YELLOW Urine Turbidity CLEAR Urine pH 5.5 Urine Specific [place] 1.020 Urine Protein NEG mg/dL Urine Glucose (UA) NEG mg/dL Urine Ketones TRACE mg/dL Urine Occult Blood NEG Urine Nitrite NEG Urine Bilirubin SMALL Urine Urobilinogen 1.0 MG/DL Urine Leukocyte Esterase NEG Urine WBC 0-2 /hpf Urine Squamous Epithelial Cells 0-5 /hpf Urine Amorphous Sediment FEW Urine Hyaline Casts 25-49 /lpf Urine Fine Granular Casts 3-5 /lpf Urine Mucus MOD /lpf Microscopic Urinalysis Comment CATH-CULT NOT IND Nasal Screen MRSA (PCR) MRSA NOT DETECTED Test 01/11/18 09:30 Peritoneal Fluid Total Protein 1.8 GM/DL Peritoneal Fluid Albumin 0.4 G/DL Peritoneal Fluid LDH 574 U/L Peritoneal Fluid Glucose 76 MG/DL Date/Time Source Procedure Growth Status 01/11/18 01:55 Blood Peripheral Aerobic Blood Culture Pending Received 01/11/18 01:55 Blood Peripheral Anaerobic Blood Culture Pending Received 01/11/18 09:30 Fluid Peritoneal Fluid Gram Stain Pending Received 01/11/18 09:30 Fluid Peritoneal Fluid Body Fluid Culture Pending Received Physical Examination HEENT: PERRL; normocephalic; atraumatic; +icterus CHEST: CTA CARDIAC: RRR ABDOMEN: distended, firm, diffuse TTP, BS hypoactive and not audible upper quadrants EXTREMITIES: No clubbing, cyanosis, or edema. SKIN: +jaundice FENCE ERECTOR: mildly confused (Milly Cline) Assessment and Plan Plan ASSESSMENT - abd pain - unclear etiology, ?peritonitis?ischemia recently s/p paracentesis, fluid cx pending CT showing colitis, moderate to severe ascites, varices. pt extremely tender, abd firm and distended GS has been consulted - melanotic stool - reported melena. pt noticed black tarry stool for last 2 weeks - hx cirrhosis, etoh - s/p paracentesis, 2nd in 2 weeks PLAN - await GS consult - EGD and colonoscopy when stable - monitor labs - supportive care - no etoh - further recs to follow pt seen by myself and DR Telles and this note is on his behalf (Milly Clien) Physician Comments Patient seen and examined Continue with current supportive care Monitor lab Patient with what appears to be cirrhosis with ascites with peritoneal signs suggestive of peritonitis this could be SBP but it does not fit all the criteria with regards to lab findings that may be due to medications and antibiotics what is for short the room is that the ascitic fluid is secondary to portal hypertension as evidenced by an SAAG greater than 1.[address] as an abnormal colon Possible colitis We will proceed with a flexible sigmoidoscopy tomorrow We will proceed with liver workup Further recommendations shall depend on her hospital course (Julián Telles MD) Milly Cline Jan 11, 2018 11:37 Julián Telles MD Jan 11, 2018 23:30
[2018-01-11 11:50] LABS: PERITONEAL POLYS(SEGS) 100 %
[2018-01-11 11:51] LABS: PERITONEAL RBC 589 /MM3 (0-0)
[2018-01-11] MEDS: INSULIN ASPART SUPPLEMENTAL SCALE SQ SCH ×3 (12:00→23:20)
[2018-01-11] MEDS ORDERED: VANCOMYCIN INJ 850 MG in SODIUM CHLOR 0.9% 250 ML INJ 250 ML IV SCH (13:30)
[2018-01-11] MEDS: ENOXAPARIN SODIUM 40 MG/0.4 ML SYRINGE SQ SCH (15:46)
[2018-01-11 17:59] LABS: ALBUMIN 2.5 GM/DL (3.4-5.0); BICARBONATE 18.9 MEQ/L (21.0-32.0); CALCIUM-PROTEIN CORRECTED 8.1 MG/DL (8.5-10.1); CREATININE 0.78 MG/DL (0.50-1.00); TOTAL BILIRUBIN ADULT 3.8 MG/DL (0.2-1.0); TOTAL PROTEIN 5.1 GM/DL (6.4-8.2)
[2018-01-11] MEDS: VANCOMYCIN 1,000 MG/NS 250 ML IV SCH ×2 (20:27)
--- NOTE | 2018-01-11 20:39 | MB ---
cc: Dion Guzman MD DATE: 01/11/2018 REASON FOR CONSULTATION: Abdominal pain. HISTORY OF PRESENT ILLNESS: This is an unfortunate 58-year-old female who is admitted to the intensive care unit with abdominal pain. She has had known liver disease. She was admitted to the hospital last month, had a fair amount of ascites that was withdrawn. She then got better, went home for about 3 days or so with nausea and vomiting and increased abdominal distention. Repeat CT scan showed a fair amount of ascites, 4 liters of fluid were drawn off again, slightly cloudy. Surgery was consulted because of the amount of abdominal discomfort she had. The thought was that she may have spontaneous bacterial peritonitis. PAST MEDICAL HISTORY: Significant for irregular heartbeats, cardiac disorder, this abdominal pain that she has. She used alcohol, but apparently has not used it in about a month or so. No neurologic events. No respiratory events. She has had some back problems and orthopedic surgeries. REVIEW OF SYSTEMS: States that she has been nauseous, vomiting, headaches, abdominal distention, abdominal pain, weakness. MEDICATIONS: In the computer, which were reviewed. ALLERGIES: NUMEROUS, WHICH WERE REVIEWED WELL. PHYSICAL EXAMINATION: VITAL SIGNS: She has a temperature of 97, her respiratory rate is 27, blood pressure 105/64, pulse oximetry 96. GENERAL: She is jaundiced. She has had in obvious discomfort. She is on nasal cannula. NECK: Very thin. She has prominent veins, jugular. A prominent fat pad in a supraclavicular area. CHEST: Otherwise fairly clear. HEART: Regular rate. ABDOMEN: Diffusely distended with ascites, even after the 4 liters that were drawn. She has got dilated veins. She is diffusely tender throughout. Decreased bowel sounds. EXTREMITIES: Some bruising. She does not move them much. NEUROLOGIC: She is alert, but obvious distress, concerned about her medical condition. Her is by her bedside. LABORATORY DATA: She had a white count of 11, H and H of 13 and 38, 20 bands. Platelet count was 246. Chemistry shows a lactic acid 1.9. It was 2.5 earlier. Total bilirubin early this morning was 5.1. Coags show INR of 1.5, PT of 15. Urinalysis is clear. The ascites fluid, cultures are pending. The white cell was a 51,000 with rbc's of 589. Serologies drawn last admission for hepatitis were all nonreactive. CT scan: I reviewed the CT of the abdomen. It shows ascites, a slightly thickened colon. No obvious other pathology other than the gallbladder looks fairly distended. The liver is consistent with cirrhosis. She had an ultrasound the . They did mention the size of the gallbladder. The gallbladder looks similar to the film on the . It is fairly distended. I do not see any stones, but the gallbladder to me looks slightly abnormal. ASSESSMENT: A 58-year-old female with fairly sizable ascites. It was drained just earlier today. It had been drained about a week ago as well. Today's was in the room, looked a little cloudy to me. The cultures on some is pending. She does have a fair amount of white cells in this. The ultrasound done the last couple weeks of the gallbladder on the . The gallbladder on my review of the films looks a little distended. There was no mention of the gallbladder. On the CT scan recently done, the gallbladder looks fairly distended as well. The gallbladder wall looks a little thickened. I will have the radiologist reread this. I do not think she would need any urgent surgical intervention like an exploratory laparotomy. I think she has spontaneous bacterial peritonitis. I think we need to rule out the source of a gallbladder. If this is a possibility, we may have to have her get a percutaneous cholecystotomy tube in this high risk patient. We will follow along during this admission. It is noted that infectious disease is following the patient as well. MD NICHOL Mcgraw/LALI , 07:21 PM , 08:38 PM
--- NOTE | 2018-01-11 22:54 | RADRPT ---
EXAM DATE/TIME: 01/11/2018 21:10 [facility] COMPARISON: CT ABDOMEN & PELVIS W CONTRAST, January 11, 2018, 2:47. US ABDOMEN - GALLBLADDER, January 03, 2018, 12:0 4. INDICATIONS : Right upper quadrant pain. MEDICAL HISTORY : Glasses. Liver disease. SURGICAL HISTORY : Back surgery. Right arm surgery. ENCOUNTER: Subsequent ACUITY: 3 weeks PAIN SCORE: 10/10 LOCATION: Right upper quadrant MEASUREMENTS: LIVER: 16.4 cm length COMMON DUCT: 10 mm RIGHT KIDNEY: 10.0 x 3.5 x 4.1 cm FINDINGS: LIVER: Cirrhotic liver with moderate to large ascites noted. There is phasic but mostly hepatofugal flow in the main portal vein. No focal hepatic lesion demonstrated. No intrahepatic ovary distention. COMMON DUCT: No intraluminal mass or stone visualized. GALLBLADDER: Wall thickness 7 mm. No stones are demonstrated. Negative sonographic Muniz's sign. The gallbladder is distended. PANCREAS: The visualized portions are within normal limits. RIGHT KIDNEY: No evidence of hydronephrosis, stone, or mass. CONCLUSION: 1. Cirrhotic liver with portal hypertension and ascites. 2. Wall thickening of the gallbladder, nonspecific but probably related to ascites and chronic liver disease. Negative sonographic Muniz's sign. 3. Nonspecific but not significantly changed prominence of the common bile duct. No stones are seen. Messi Dalal MD on January 11, 2018 at 22:49 Board Certified Radiologist. This report was verified electronically.
[2018-01-12] VITALS (11 sets, daily range): BP systolic 109–132; BP diastolic 58–71; PULSE 83–132; RESP 14–28; TEMP 97.4–97.8; O2SAT 92–97
--- NOTE | 2018-01-12 00:12 | EKG ---
Date Performed: 01/11/2018 Time Performed: 02:29:03 PTAGE: 58 years EKG: BASELINE ARTIFACT UNDETERMINABLE RHYTHM LOW QRS VOLTAGE ANTEROSEPTAL MYOCARDIAL INFARCTION ABNORMAL ECG PREVIOUS TRACING : 01/02/2018 14.53 Compared to previous tracing, unable to compare DOCTOR: Joe Sanon Interpretating Date/Time 01/12/2018 00:11:43
[2018-01-12] MEDS ORDERED: POTASSIUM CHLORIDE 25 MEQ EFFERVESCENT TAB PO PRN (01:45)
[2018-01-12] MEDS ORDERED: SODIUM PHOSPHATE INJ 30 MMOL in SODIUM CHLOR 0.9% 250 ML INJ 240 ML IV PRN (01:45)
[2018-01-12] MEDS ORDERED: POTASSIUM CHLOR 20 MEQ PREMIX 100 ML IV PRN ×2 (01:45)
[2018-01-12] MEDS ORDERED: POTASSIUM CHLOR 40 MEQ PREMIX 100 ML IV PRN ×2 (01:45)
[2018-01-12] MEDS ORDERED: MAGNESIUM SULFATE INJ 2 GM in SODIUM CHLORIDE 0.9% INJ 96 ML IV PRN (01:45)
[2018-01-12] MEDS ORDERED: MAGNESIUM SULFATE INJ 4 GM in SODIUM CHLORIDE 0.9% INJ 92 ML IV PRN (01:45)
[2018-01-12] MEDS ORDERED: MAGNESIUM OXIDE 400 MG TAB PO PRN (01:45)
[2018-01-12] MEDS ORDERED: POTASSIUM PHOSPHATE MONOBASIC 500 MG TAB PO/TUBE PRN (01:45)
[2018-01-12] MEDS ORDERED: POTASSIUM PHOSPHATE INJ 30 MMOL in SODIUM CHLOR 0.9% 250 ML INJ 250 ML IV PRN (01:45)
[2018-01-12] MEDS ORDERED: SODIUM CHLOR 0.9% 1000 ML INJ 1,000 ML IV ONE (01:45)
[2018-01-12] MEDS ORDERED: POTASSIUM PHOSPHATE MONOBASIC 500 MG TAB PO PRN (01:45)
[2018-01-12] MEDS: ALBUMIN 25% INJ 50 ML IV SCH ×2 (02:11→07:44)
[2018-01-12] MEDS: AZTREONAM INJ 2,000 MG in SODIUM CHLORIDE 0.9% INJ 100 ML IV SCH ×3 (02:12→17:19)
[2018-01-12] MEDS: metroNIDAZOLE 500 MG TAB PO SCH ×3 (02:12→17:26)
[2018-01-12] MEDS: MORPHINE SULFATE 4 MG/ML INJ IV PUSH PRN ×2 (02:13→06:16)
[2018-01-12] MEDS: CHLORHEXIDINE GLUCONATE 2 % 1 PACK (2 CLOTHS) TOP SCH ×2 (02:23→20:19)
[2018-01-12] MEDS: DEXT 5%-NACL 0.9% 1000 ML INJ 1,000 ML IV SCH ×3 (05:56→23:53)
[2018-01-12] MEDS: INSULIN ASPART SUPPLEMENTAL SCALE SQ SCH ×4 (06:00→23:52)
[2018-01-12 06:39] LABS: AUTOMATED NEUTROPHIL # 30.4 TH/MM3 (1.8-7.7); BASOPHIL % 0.1 % (0.0-2.0); HEMOGLOBIN 10.6 GM/DL (11.6-15.3); LYMPH % 4.3 % (9.0-44.0); LYMPHOCYTE # 1.4 TH/MM3 (1.0-4.8); MEAN CELL VOLUME 107.1 FL (80.0-100.0); MEAN CORPUSCULAR HEMOGLOBIN 35.5 PG (27.0-34.0); MEAN CORPUSCULAR HGB CONC 33.2 % (32.0-36.0); MEAN PLATELET VOLUME 9.7 FL (7.0-11.0); MONO % 2.1 % (0.0-8.0); MONOCYTE # 0.7 TH/MM3 (0-0.9); NEUT % 93.5 % (16.0-70.0); PLATELET COUNT 185 TH/MM3 (150-450); RED BLOOD COUNT 2.99 MIL/MM3 (4.00-5.30); RED CELL DISTRIBUTION WIDTH 18.5 % (11.6-17.2); WHITE BLOOD COUNT 32.5 TH/MM3 (4.0-11.0)
[2018-01-12 06:54] LABS: ALBUMIN 2.6 GM/DL (3.4-5.0); CREATININE 0.63 MG/DL (0.50-1.00); MAGNESIUM 1.9 MG/DL (1.5-2.5); PHOSPHORUS 1.4 MG/DL (2.5-4.9); TOTAL BILIRUBIN ADULT 3.6 MG/DL (0.2-1.0); TOTAL PROTEIN 5.2 GM/DL (6.4-8.2)
--- NOTE | 2018-01-12 07:39 | HHI.CCPN ---
Subjective Remarks/Hospital Course 01/11: 58-year-old female presents to the emergency department by private transportation the care of her spouse for evaluation of severe abdominal pain. Patient was recently hospitalized 01/02/18 through 01/06/18 for evaluation of liver failure with ascites at [place]. During her hospitalization she underwent paracentesis of 4-1/2 L of ascitic fluid and was discharged with recommendation for follow-up with GI and had an appointment for next week. She did receive 1 dose of Levaquin during the hospitalization in the ER which was discontinued at the time since her ascites fluid did not suggest peritonitis and her peritoneal fluid cultures did not reveal any growth at 72 hours. No report of fever or chills. Patient previous alcohol consumer but no alcohol since last hospitalization about 10 days back. Patient was discharged on spironolactone metoprolol and pentoxifylline. Patient complains of severe abdominal pain which has worsened since her discharge on 01/06/18. She stated that her belly distention did not really improve significantly following her last paracentesis however her lower extremity swelling has significantly improved. She also has complained of some black stools going on for about 4-5 days. 01/12: Underwent paracentesis with drainage of about 4 L of ascitic fluid yesterday. Still having significant abdominal pain. White count has jumped to 32,000. No diarrhea since yesterday. Patient has been evaluated by GI and general surgery. Still awaiting colonoscopy for further evaluation of colitis. Has not required pressors. Objective Vital Signs Date Time Temp Pulse Resp B/P (MAP) Pulse Ox O2 Delivery O2 Flow Rate FiO2 01/12/18 06:00 120 01/12/18 04:00 97.7 20 121/69 (86) 92 01/11/18 22:59 Nasal Cannula 1.00 Intake and Output 01/12/18 01/12/18 01/13/18 08:00 16:00 00:00 Intake Total 2680 ml Output Total 360 ml Balance 2320 ml Result Diagram: 01/12/18 0545 01/12/18 0545 Imaging Last Impressions Chest X-Ray 01/11/18 0125 Signed Impressions: Service Date/Time: Thursday, January 11, 2018 02:09 - CONCLUSION: Subsegmental airspace disease at the lung bases, possibly atelectasis. Dion Pagan MD Abdomen/Pelvis CT 01/11/18 0125 Signed Impressions: Service Date/Time: Thursday, January 11, 2018 02:47 - CONCLUSION: 1. Diffuse mural thickening of the colon most characteristic of a colitis. Also mild mural edema of small bowel. 2. Liver cirrhosis with moderate to severe ascites and varices. 3. Small hiatal hernia. Tiny renal cysts. Dion Pagan MD Objective Remarks Narrative GENERAL: Very ill-appearing female with jaundice and diffuse ecchymosis in acute discomfort no respiratory distress SKIN: Warm and dry. HEAD: Normocephalic. EYES: No scleral icterus. No injection or drainage. NECK: Supple, trachea midline. No JVD or lymphadenopathy. CARDIOVASCULAR: S1-S2 irregularly irregular, no gallop or murmur. RESPIRATORY: Breath sounds equal bilaterally. No accessory muscle use. No wheezing or crackles GASTROINTESTINAL: Abdomen soft, markedly tender to palpation with voluntary guarding and rebound, distended with fluid wave. Bowel sounds not appreciated. MUSCULOSKELETAL: Trace edema lower extremities. A/P Assessment and Plan 58-year-old female with: Abdominal pain Sepsis Hypotension Liver cirrhosis Ascites Suspected peritonitis Colitis Jaundice Melena (at home) Plan: Neuro: Morphine as needed for pain. Follow neuro status. Cardiovascular: Continue IV fluids. Levophed for pressor support if needed. Albumin 25% 50 cc every 6 hourly 24 hours (01/11-01/12). Will obtain 12-lead EKG as patient appears to be in atrial fibrillation. Pulmonary: Supplemental O2 as needed, bronchodilators as needed. GI/liver: N.p.o., GI and general surgery consulted in view of peritoneal signs and colitis on CT. s/p diagnostic and therapeutic paracentesis on 01/11 with drainage of about 4 liters of ascitic fluid. Renal/: IV hydration, strict intake output, monitor and replete electrodes, follow BUN/creatinine. ID: Follow-up blood cultures. F/u ascites fluid for Gram stain and cultures. Empiric antibiotic coverage with IV aztreonam/vancomycin, p.o. Flagyl. Check stool for C. difficile. Colitis may be ischemic versus C. difficile. Worsening leukocytosis noted. Lactic acid remains elevated. ID consult noted. Endocrine: SSI for glycemic control as needed. Heme: Follow CBC and coags. Prophylaxis: Protonix/SCDs/Lovenox GI/general surgery following. Condition critical, patient is at high risk of decompensation with rising white count elevated lactic acid level. Time spent on critical care excluding procedures 30 minutes Sathya Griffin MD Jan 12, 2018 07:39
[2018-01-12] MEDS: PANTOPRAZOLE SODIUM 40 MG VIAL IV PUSH SCH (07:43)
[2018-01-12] MEDS: SODIUM CHLORIDE 0.9% FLUSH 10 ML FLUSH IV FLUSH SCH ×2 (07:44→19:57)
[2018-01-12] MEDS: DOCUSATE SODIUM 50 MG/SENNA 8.6 MG TAB PO SCH ×2 (07:44→19:57)
[2018-01-12 08:30] LABS: BANDS 34 % (0-6); LYMPHOCYTES 4 % (9-44); MONOCYTES 2 % (0-8); NEUTROPHIL # MANUAL DIFF 30.6 TH/MM3 (1.8-7.7); POLYS (SEG NEUTROPHILS) 60 % (16-70)
[2018-01-12 08:32] LABS: TOXIC GRANULATION 3+ (NORMAL)
--- NOTE | 2018-01-12 08:34 | RADRPT ---
EXAM DATE/TIME: 01/12/2018 08:07 [facility] COMPARISON: CT ABDOMEN & PELVIS W CONTRAST, January 11, 2018, 2:47. INDICATIONS : Abdominal pain and distention. MEDICAL HISTORY : Liver disease. Colitis. SURGICAL HISTORY : Back surgery. Right arm surgery. ENCOUNTER: Subsequent ACUITY: 1 day PAIN SCORE: 10/10 LOCATION: abdomen FINDINGS: Supine view of the abdomen was performed. No dilated loops of bowel. No gross free air or pneumatosis . Air is noted in portions of the colon. No abnormal calcifications. There is a right femoral central line in place. Osseous structures are unremarkable. CONCLUSION: 1. Nonobstructive bowel gas pattern. Gage Anderson MD on January 12, 2018 at 8:25 Board Certified Radiologist. This report was verified electronically.
--- NOTE | 2018-01-12 09:37 | HHI.PR ---
cc: Rob Guzman MD Subjective Subjective Notes DAILY PROGRESS NOTE FOR SURGICAL ATTENDING, DR. ROB GUZMAN Patient in ICU at bedside Patient sitting up complains of abdominal distention and pain Waiting for timing of colonoscopy Objective Vitals/I&O Vital Signs Date Time Temp Pulse Resp B/P (MAP) Pulse Ox O2 Delivery O2 Flow Rate FiO2 01/12/18 06:00 120 01/12/18 04:00 97.7 20 121/69 (86) 92 01/11/18 22:59 Nasal Cannula 1.00 Labs Laboratory Tests Test 01/11/18 17:10 01/12/18 05:45 Blood Urea Nitrogen 24 19 Creatinine 0.78 0.63 Random Glucose 195 169 Total Protein 5.1 5.2 Albumin 2.5 2.6 Calcium Level 7.0 7.0 Alkaline Phosphatase 212 195 Aspartate Amino Transf (AST/SGOT) 89 75 Alanine Aminotransferase (ALT/SGPT) 34 28 Total Bilirubin 3.8 3.6 Sodium Level 135 138 Potassium Level 3.4 4.1 Chloride Level 103 110 Carbon Dioxide Level 18.9 17.0 Anion Gap 13 11 Estimat Glomerular Filtration Rate 76 97 Lactic Acid Level 3.6 3.6 Protein Corrected Calcium 8.1 8.0 White Blood Count 32.5 Red Blood Count 2.99 Hemoglobin 10.6 Hematocrit 32.0 Mean Corpuscular Volume 107.1 Mean Corpuscular Hemoglobin 35.5 Mean Corpuscular Hemoglobin Concent 33.2 Red Cell Distribution Width 18.5 Platelet Count 185 Mean Platelet Volume 9.7 Neutrophils (%) (Auto) 93.5 Lymphocytes (%) (Auto) 4.3 Monocytes (%) (Auto) 2.1 Eosinophils (%) (Auto) 0.0 Basophils (%) (Auto) 0.1 Neutrophils # (Auto) 30.4 Lymphocytes # (Auto) 1.4 Monocytes # (Auto) 0.7 Eosinophils # (Auto) 0.0 Basophils # (Auto) 0.0 CBC Comment AUTO DIFF Differential Total Cells Counted 100 Neutrophils % (Manual) 60 Band Neutrophils % 34 Lymphocytes % 4 Monocytes % 2 Neutrophils # (Manual) 30.6 Differential Comment FINAL DIFF MANUAL Toxic Granulation 3+ Platelet Estimate NORMAL Platelet Morphology Comment CLUMPED Phosphorus Level 1.4 Magnesium Level 1.9 Iron Level 16 Ferritin 896 Date/Time Source Procedure Growth Status 01/11/18 01:55 Blood Peripheral Aerobic Blood Culture Pending Received 01/11/18 01:55 Blood Peripheral Anaerobic Blood Culture Pending Received 01/11/18 09:30 Fluid Peritoneal Fluid Gram Stain - Final Resulted 01/11/18 09:30 Fluid Peritoneal Fluid Body Fluid Culture Pending Resulted Radiology Last Impressions Abdomen X-Ray 01/12/18 0000 Signed Impressions: Service Date/Time: Friday, January 12, 2018 08:07 - CONCLUSION: 1. Nonobstructive bowel gas pattern. Gage Anderson MD Gall Bladder Ultrasound 01/11/182007 Signed Impressions: Service Date/Time: Thursday, January 11, 2018 21:10 - CONCLUSION: 1. Cirrhotic liver with portal hypertension and ascites. 2. Wall thickening of the gallbladder, nonspecific but probably related to ascites and chronic liver disease. Negative sonographic Muniz's sign. 3. Nonspecific but not significantly changed prominence of the common bile duct. No stones are seen. Messi Dalal MD Chest X-Ray 01/11/18124 Signed Impressions: Service Date/Time: Thursday, January 11, 2018 02:09 - CONCLUSION: Subsegmental airspace disease at the lung bases, possibly atelectasis. Rob Pagan MD Abdomen/Pelvis CT 01/11/18124 Signed Impressions: Service Date/Time: Thursday, January 11, 2018 02:47 - CONCLUSION: 1. Diffuse mural thickening of the colon most characteristic of a colitis. Also mild mural edema of small bowel. 2. Liver cirrhosis with moderate to severe ascites and varices. 3. Small hiatal hernia. Tiny renal cysts. Rob Pagan MD Cardiovascular: Other Lungs: Clear (Tachycardic) Abdomen: Other (Diffuse soreness and tenderness ascites bruising) Extremities: SCD's on, Other (Edema) A/P Problem List: (1) Colitis ICD Codes: K52.9 - Noninfective gastroenteritis and colitis, unspecified Status: Acute (2) Abdominal pain ICD Codes: R10.9 - Unspecified abdominal pain Status: Acute (3) Cirrhosis ICD Codes: K74.60 - Unspecified cirrhosis of liver Status: Chronic (4) Hepatic insufficiency ICD Codes: K72.90 - Hepatic failure, unspecified without coma Status: Chronic (5) Tachycardia ICD Codes: R00.0 - Tachycardia, unspecified (6) Hyperkalemia ICD Codes: E87.5 - Hyperkalemia (7) Hyponatremia ICD Codes: E87.1 - Hypo-osmolality and hyponatremia (8) Lactic acidosis ICD Codes: E87.2 - Acidosis Status: Acute (9) Peritonitis ICD Codes: K65.9 - Peritonitis, unspecified Status: Acute Assessment and Plan 58-year-old female with ascites abdominal discomfort. She appears to have colitis and possibly spontaneous bacterial peritonitis of her ascites. Reviewed all the films with the radiologist today gallbladder is distended which is typical for some with with liver failure and ascites. waiting for gastroenterology to perform the colonoscopy to evaluate her colon If she requires any surgical intervention she is very high risk of mortality from any surgical procedure I reviewed the case with cell biologist Dr Griffin Attending Statement NOTE FOR SURGICAL ATTENDING, DR. ROB GUZMAN I attest that I had a [id number] encounter with the patient on the same day, and personally performed and documented my assessment and findings in the medical record. The following services were provided during this hospital visit: Chart data review, vital sign assessments/reviewing monitor data Review of consultations notes if present. Medication orders/review and/or management Ordering and/or reviewing lab tests Ordering and/or interpreting/reviewing x-rays and/or diagnostic studies Care of the patient and discussion of the patient with the care team Documentation time To help prompt me to consider important information that might be impacting today's encounter and assessment, Information from prior notes written by myself or my colleagues may have been "brought forward/copy and pasted" into today's note. Problem Qualifiers (1) Abdominal pain: Qualified Codes: R10.84 - Generalized abdominal pain (2) Cirrhosis: Rob Guzman MD Jan 12, 2018 09:37
--- NOTE | 2018-01-12 10:03 | HHI.IDPN ---
Subjective Subjective Remarks Patient is a 58-year-old female with Dx of liver cirrhosis, presented to the hospital C/P worsening diffuse abdominal pain. She has had some vomiting and diarrhea at home. She was recently hospitalized January 02 - January 06 at [facility]. During that time she had liver failure with ascites, and underwent paracentesis with drainage of 4.5 L of fluid. Fluid analysis did not show any evidence of peritonitis. She received Levaquin, and when the peritoneal fluid came back negative she did not get any further antibiotics. She was discharged, and apparently started having severe abdominal pain which worsened. There was no mention of any fever or chills. Evaluation on this admission showed leukocytosis of 11,000. She is afebrile, and tachycardic which has improved. CT of the abdomen and pelvis showed moderate ascites and there is evidence of bowel wall thickening consistent with colitis. Patient underwent paracentesis this morning. She is currently complaining of severe abdominal pain. Infectious disease consultation has been requested to evaluate the patient for sepsis. Notes reviewed Temps ok BP ok, not on pressors Still with severe abdominal pain Surgery notes reviewed WBC up to 32K this morning Hgb down to 10, 13 yesterday PD fluid 5000, all neutrophils BC negative so far PD fluid C/S pending, G/S no organism seen No BM recorded Antibiotics Vancomycin IV Azactam IV Flagyl po Current Medications Medications (Trade) Dose Ordered Sig/Dmitri Route Start Time Stop Time Status Last Admin Norepinephrine Bitartrate 250 ml @ 7.5 mls/hr TITRATE PRN IV 01/11/18 03:45 (Brethine Inj) 1 mg UNSCH PRN SQ 01/11/18 03:45 (NS Flush) 2 ml UNSCH PRN IV FLUSH 01/11/18 07:00 (NS Flush) 2 ml BID IV FLUSH 01/11/18 09:00 01/12/18 07:44 (Morphine Inj) 4 mg Q4HR PRN IV PUSH 01/11/18 07:00 01/12/18 06:16 (Protonix Inj) 40 mg DAILY IV PUSH 01/11/18 09:00 01/12/18 07:43 (Zofran Inj) 4 mg Q6H PRN IV PUSH 01/11/18 07:00 (Reglan Inj) 10 mg Q6H PRN IV PUSH 01/11/18 07:00 (Duoneb Neb) 1 ampule Q2HR NEB PRN INH 01/11/18 07:00 (Lovenox Inj) 40 mg Q24H SQ 01/11/18 16:00 01/11/18 15:46 Miscellaneous Information 1 Q361D XX 01/11/18 07:00 01/11/18 07:00 (Chlorhexidine 2% Cloth) 3 pack Taper DAILY@04 TOP 01/12/18 04:00 01/08/19 03:59 01/12/18 02:23 (Chlorhexidine 2% Cloth) 3 pack UNSCH PRN TOP 01/11/18 07:00 (Floresita-Colace) 1 tab BID PO 01/11/18 09:00 01/12/18 07:44 (Milk Of Magnesia Liq) 30 ml Q12H PRN PO 01/11/18 07:00 (Senokot) 17.2 mg Q12H PRN PO 01/11/18 07:00 (Dulcolax Supp) 10 mg DAILY PRN RECTAL 01/11/18 07:00 (Lactulose Liq) 30 ml DAILY PRN PO 01/11/18 07:00 Aztreonam 2000 mg/ Sodium Chloride 100 ml @ 200 mls/hr Q8H IV 01/11/18 10:00 01/12/18 02:12 (Flagyl) 500 mg Q8H PO 01/11/18 10:00 01/12/18 02:12 Pharmacy Profile Note 0 ml @ 0 mls/hr UNSCH OTHER 01/11/18 08:00 (NovoLOG SUPPLEMENTAL SCALE) 1 Q6HR SQ 01/11/18 12:00 (D50w (Vial) Inj) 25 ml UNSCH PRN IV 01/11/18 07:15 (Glucagon Inj) 1 mg UNSCH PRN IM/SQ 01/11/18 07:15 Albumin Human 50 ml @ 60 mls/hr Q6H IV 01/11/18 07:30 01/12/18 12:00 01/12/18 07:44 Vancomycin HCl 1000 mg/Sodium Chloride 250 ml @ 250 mls/hr Q18H IV 01/11/18 20:00 01/11/18 20:27 Miscellaneous Information SPECIFIC LAB TO BE DRAWN:VANCOMY... ONCE ONCE .XX 01/13/18 07:45 01/13/18 07:46 Dextrose/Sodium Chloride 1,000 ml @ 125 mls/hr Q8H IV 01/11/18 09:15 01/12/18 05:56 Potassium Chloride 100 ml @ 50 mls/hr Q2H PRN IV 01/12/18 01:45 Potassium Chloride 100 ml @ 50 mls/hr Q2H PRN IV 01/12/18 01:45 01/12/18 02:13 (K-Lyte Cl Eff) 50 meq UNSCH PRN PO 01/12/18 01:45 Potassium Chloride 100 ml @ 25 mls/hr UNSCH PRN IV 01/12/18 01:45 Potassium Chloride 100 ml @ 50 mls/hr Q2H PRN IV 01/12/18 01:45 01/12/18 02:13 Magnesium Sulfate 4 gm/Sodium Chloride 100 ml @ 50 mls/hr UNSCH PRN IV 01/12/18 01:45 (Mag-Ox) 800 mg UNSCH PRN PO 01/12/18 01:45 Magnesium Sulfate 2 gm/Sodium Chloride 100 ml @ 50 mls/hr UNSCH PRN IV 01/12/18 01:45 (K-Phos) 2,000 mg Q4H PRN PO 01/12/18 01:45 Sodium Phosphate 30 mmol/Sodium Chloride 250 ml @ 42 mls/hr UNSCH PRN IV 01/12/18 01:45 (K-Phos) 2,000 mg UNSCH PRN PO/TUBE 01/12/18 01:45 Potassium Phosphate 30 mmol/ Sodium Chloride 260 ml @ 42 mls/hr UNSCH PRN IV 01/12/18 01:45 Lines No evidence of infection Past Medical History Liver cirrhosis Back pain Arthritis Allergies: Coded Allergies: doxycycline (Unverified Allergy, Severe, 01/11/18) minocycline (Unverified Allergy, Severe, 01/11/18) penicillin G (Unverified Allergy, Severe, 01/11/18) tigecycline (Unverified Allergy, Severe, 01/11/18) Objective . Vital Signs Date Time Temp Pulse Resp B/P (MAP) Pulse Ox O2 Delivery O2 Flow Rate FiO2 01/12/18 06:00 120 01/12/18 04:00 129 01/12/18 04:00 97.7 129 20 121/69 (86) 92 4/24/18 02:00 83 01/12/18 00:00 102 01/12/18 00:00 97.7 128 24 113/69 (84) 92 01/11/18 22:59 98 Nasal Cannula 1.00 01/11/18 22:00 90 01/11/18 20:00 97.4 86 29 111/71 (84) 97 01/11/18 20:00 86 01/11/18 19:00 97 Nasal Cannula 1.00 01/11/18 18:00 90 01/11/18 18:00 97.8 90 18 95/57 (70) 97 01/11/18 17:16 18 01/11/18 16:00 97.6 88 42 100/67 (78) 93 01/11/18 16:00 88 01/11/18 14:00 83 01/11/18 14:00 97.6 83 41 97/63 (74) 98 01/11/18 12:00 97.3 89 27 105/64 (78) 96 01/11/18 12:00 89 01/11/18 11:00 98.4 92 27 95/71 (79) 93 01/11/18 10:00 129 01/11/18 10:00 98.6 129 31 85 . Laboratory Tests Test 01/11/18 01:50 01/12/18 05:45 White Blood Count 11.5 TH/MM3 32.5 TH/MM3 Red Blood Count 3.70 MIL/MM3 2.99 MIL/MM3 Hemoglobin 13.0 GM/DL 10.6 GM/DL Hematocrit 38.3 % 32.0 % Mean Corpuscular Volume 103.5 FL 107.1 FL Mean Corpuscular Hemoglobin 35.2 PG 35.5 PG Mean Corpuscular Hemoglobin Concent 34.0 % 33.2 % Red Cell Distribution Width 18.7 % 18.5 % Platelet Count 246 TH/MM3 185 TH/MM3 Mean Platelet Volume 8.7 FL 9.7 FL CBC Comment AUTO DIFF AUTO DIFF Differential Total Cells Counted 100 100 Neutrophils % (Manual) 70 % 60 % Band Neutrophils % 20 % 34 % Lymphocytes % 6 % 4 % Monocytes % 4 % 2 % Neutrophils # (Manual) 10.4 TH/MM3 30.6 TH/MM3 Nucleated Red Blood Cells 1 /100 WBC Differential Comment FINAL DIFF MANUAL FINAL DIFF MANUAL Platelet Estimate NORMAL NORMAL Platelet Morphology Comment CLUMPED CLUMPED Neutrophils (%) (Auto) 93.5 % Lymphocytes (%) (Auto) 4.3 % Monocytes (%) (Auto) 2.1 % Eosinophils (%) (Auto) 0.0 % Basophils (%) (Auto) 0.1 % Neutrophils # (Auto) 30.4 TH/MM3 Lymphocytes # (Auto) 1.4 TH/MM3 Monocytes # (Auto) 0.7 TH/MM3 Eosinophils # (Auto) 0.0 TH/MM3 Basophils # (Auto) 0.0 TH/MM3 Toxic Granulation 3+ Laboratory Tests Test 01/11/18 01:50 01/11/18 04:05 01/11/18 17:10 01/12/18 05:45 Blood Urea Nitrogen 28 MG/DL 24 MG/DL 19 MG/DL Creatinine 0.87 MG/DL 0.78 MG/DL 0.63 MG/DL Random Glucose 70 MG/DL 195 MG/DL 169 MG/DL Total Protein 5.8 GM/DL 5.1 GM/DL 5.2 GM/DL Albumin 1.8 GM/DL 2.5 GM/DL 2.6 GM/DL Calcium Level 7.7 MG/DL 7.0 MG/DL 7.0 MG/DL Magnesium Level 2.0 MG/DL 1.9 MG/DL Alkaline Phosphatase 356 U/L 212 U/L 195 U/L Aspartate Amino Transf (AST/SGOT) 147 U/L 89 U/L 75 U/L Alanine Aminotransferase (ALT/SGPT) 47 U/L 34 U/L 28 U/L Total Bilirubin 5.1 MG/DL 3.8 MG/DL 3.6 MG/DL Sodium Level 127 MEQ/L 135 MEQ/L 138 MEQ/L Potassium Level 3.7 MEQ/L 3.4 MEQ/L 4.1 MEQ/L Chloride Level 95 MEQ/L 103 MEQ/L 110 MEQ/L Carbon Dioxide Level 21.6 MEQ/L 18.9 MEQ/L 17.0 MEQ/L Anion Gap 10 MEQ/L 13 MEQ/L 11 MEQ/L Estimat Glomerular Filtration Rate 67 ML/MIN 76 ML/MIN 97 ML/MIN Lactic Acid Level 2.5 mmol/L 1.9 mmol/L 3.6 mmol/L 3.6 mmol/L Protein Corrected Calcium 8.4 MG/DL 8.1 MG/DL 8.0 MG/DL Ammonia 16 MCMOL/L Lipase 238 U/L Phosphorus Level 1.4 MG/DL Iron Level 16 MCG/DL Ferritin 896 NG/ML Microbiology Date/Time Source Procedure Growth Status 01/11/18 01:55 Blood Peripheral Aerobic Blood Culture Pending Received 01/11/18 01:55 Blood Peripheral Anaerobic Blood Culture Pending Received 01/11/18 01:50 Blood Peripheral Aerobic Blood Culture Pending Received 01/11/18 01:50 Blood Peripheral Anaerobic Blood Culture Pending Received 01/11/18 09:30 Fluid Peritoneal Fluid Gram Stain - Final Resulted 01/11/18 09:30 Fluid Peritoneal Fluid Body Fluid Culture Pending Resulted Imaging Last Impressions Abdomen X-Ray 01/12/18 0000 Signed Impressions: Service Date/Time: Friday, January 12, 2018 08:07 - CONCLUSION: 1. Nonobstructive bowel gas pattern. Gage Anderson MD Gall Bladder Ultrasound 01/11/182007 Signed Impressions: Service Date/Time: Thursday, January 11, 2018 21:10 - CONCLUSION: 1. Cirrhotic liver with portal hypertension and ascites. 2. Wall thickening of the gallbladder, nonspecific but probably related to ascites and chronic liver disease. Negative sonographic Muniz's sign. 3. Nonspecific but not significantly changed prominence of the common bile duct. No stones are seen. Messi Dalal MD Chest X-Ray 01/11/18124 Signed Impressions: Service Date/Time: Thursday, January 11, 2018 02:09 - CONCLUSION: Subsegmental airspace disease at the lung bases, possibly atelectasis. Dion Pagan MD Abdomen/Pelvis CT 01/11/18124 Signed Impressions: Service Date/Time: Thursday, January 11, 2018 02:47 - CONCLUSION: 1. Diffuse mural thickening of the colon most characteristic of a colitis. Also mild mural edema of small bowel. 2. Liver cirrhosis with moderate to severe ascites and varices. 3. Small hiatal hernia. Tiny renal cysts. Dion Pagan MD Physical Exam GENERAL: Patient is a thin, well-developed female, slow to answer. Looks chronically ill appearing, not in respiratory distress. SKIN: Cool and dry. Has scattered purpuric areas, has jaundice. HEAD: Atraumatic. Normocephalic. No temporal wasting, or tenderness. EYES: Pale conjunctiva. No petechia or hemorrhage. Pupils equal, round and reactive to light. Extraocular movements full and intact. Has scleral icterus. No injection or drainage. EARS, NOSE AND THROAT: Nose without bleeding or purulent nasal discharge. No sinus tenderness. Dry oral mucosa. NECK: Trachea midline. Supple and not tender, no meningeal signs. Has fatty pad tissue at base of both neck CARDIOVASCULAR: Regular rate and rhythm. No murmurs, rubs or gallops heard RESPIRATORY: Clear to auscultation. Breath sounds equal bilaterally. No rales , wheezing or rhonchi. Decreased breath sounds at bases. ABDOMEN: Soft, more distended compared to yesterday, diffusely tender, with guarding. Hypoactive bowel sounds. EXTREMITIES: No clubbing, cyanosis. Has bilateral pitting pedal edema. No calf tenderness. Well perfused and warm. NEUROLOGICAL: Awake and slow to answer. Cranial nerves grossly intact. Motor grossly within normal limits. PSYCHIATRIC: cooperative. LINE: No evidence of infection Assessment & Plan Remarks IMPRESSION Severe abdominal pain, ?SBP, has colitis on CT, ?C diff colitis Colitis on CT, had some diarrhea, R/O C diff Liver cirrhosis, with portal HTN, prob ETOH etiology - hepatitis serologies negative Leukocytosis, worse RECOMMENDATION Follow C/S Follow CBC Add antifungal Continue empiric Abx: Azactam, Vanco IV, Flagyl Monitor progress Spoke with D/W Rocio Griggs MD Jan 12, 2018 10:03
[2018-01-12] MEDS: MORPHINE SULFATE 4 MG/ML INJ IV PRN ×4 (10:45→23:53)
--- NOTE | 2018-01-12 11:00 | HHI.GIFU ---
Subjective Remarks Pt to have flex sig today. After d/w with her and her they are agreeable to proceed. She is exquisitely tender throughout her abd, pain unchanged. (Milly Cline) Objective Vitals I&O Vital Signs Date Time Temp Pulse Resp B/P (MAP) Pulse Ox O2 Delivery O2 Flow Rate FiO2 01/12/18 10:00 132 01/12/18 08:00 97.8 111 20 112/71 (85) 96 01/12/18 07:00 98 Nasal Cannula 3.00 01/12/18 06:00 120 01/12/18 04:00 129 01/12/18 04:00 97.7 129 20 121/69 (86) 92 01/12/18 02:00 83 01/12/18 00:00 102 01/12/18 00:00 97.7 128 24 113/69 (84) 92 01/11/18 22:59 98 Nasal Cannula 1.00 01/11/18 22:00 90 01/11/18 20:00 97.4 86 29 111/71 (84) 97 01/11/18 20:00 86 01/11/18 19:00 97 Nasal Cannula 1.00 01/11/18 18:00 90 01/11/18 18:00 97.8 90 18 95/57 (70) 97 01/11/18 17:16 18 01/11/18 16:00 97.6 88 42 100/67 (78) 93 01/11/18 16:00 88 01/11/18 14:00 83 01/11/18 14:00 97.6 83 41 97/63 (74) 98 01/11/18 12:00 97.3 89 27 105/64 (78) 96 01/11/18 12:00 89 01/11/18 11:00 98.4 92 27 95/71 (79) 93 I/O 01/11/18 01/11/18 01/11/18 01/12/18 01/12/18 01/12/18 07:00 15:00 23:00 07:00 15:00 23:00 Intake Total 1950 ml 594 ml 1100 ml 2680 ml Output Total 275 ml 300 ml 175 ml 360 ml Balance 1675 ml 294 ml 925 ml 2320 ml Intake Oral 30 ml IV Total 1950 ml 594 ml 1100 ml 2650 ml Output Urine Total 275 ml 300 ml 175 ml 360 ml # Bowel Movements 0 Laboratory Laboratory Tests Test 01/11/18 17:10 01/12/18 05:45 Blood Urea Nitrogen 24 19 Creatinine 0.78 0.63 Random Glucose 195 169 Total Protein 5.1 5.2 Albumin 2.5 2.6 Calcium Level 7.0 7.0 Alkaline Phosphatase 212 195 Aspartate Amino Transf (AST/SGOT) 89 75 Alanine Aminotransferase (ALT/SGPT) 34 28 Total Bilirubin 3.8 3.6 Sodium Level 135 138 Potassium Level 3.4 4.1 Chloride Level 103 110 Carbon Dioxide Level 18.9 17.0 Anion Gap 13 11 Estimat Glomerular Filtration Rate 76 97 Lactic Acid Level 3.6 3.6 Protein Corrected Calcium 8.1 8.0 White Blood Count 32.5 Red Blood Count 2.99 Hemoglobin 10.6 Hematocrit 32.0 Mean Corpuscular Volume 107.1 Mean Corpuscular Hemoglobin 35.5 Mean Corpuscular Hemoglobin Concent 33.2 Red Cell Distribution Width 18.5 Platelet Count 185 Mean Platelet Volume 9.7 Neutrophils (%) (Auto) 93.5 Lymphocytes (%) (Auto) 4.3 Monocytes (%) (Auto) 2.1 Eosinophils (%) (Auto) 0.0 Basophils (%) (Auto) 0.1 Neutrophils # (Auto) 30.4 Lymphocytes # (Auto) 1.4 Monocytes # (Auto) 0.7 Eosinophils # (Auto) 0.0 Basophils # (Auto) 0.0 CBC Comment AUTO DIFF Differential Total Cells Counted 100 Neutrophils % (Manual) 60 Band Neutrophils % 34 Lymphocytes % 4 Monocytes % 2 Neutrophils # (Manual) 30.6 Differential Comment FINAL DIFF MANUAL Toxic Granulation 3+ Platelet Estimate NORMAL Platelet Morphology Comment CLUMPED Phosphorus Level 1.4 Magnesium Level 1.9 Iron Level 16 Ferritin 896 Date/Time Source Procedure Growth Status 01/11/18 01:55 Blood Peripheral Aerobic Blood Culture Pending Received 01/11/18 01:55 Blood Peripheral Anaerobic Blood Culture Pending Received 01/11/18 09:30 Fluid Peritoneal Fluid Gram Stain - Final Resulted 01/11/18 09:30 Fluid Peritoneal Fluid Body Fluid Culture Pending Resulted Imaging Last Impressions Abdomen X-Ray 01/12/18 0000 Signed Impressions: Service Date/Time: Friday, January 12, 2018 08:07 - CONCLUSION: 1. Nonobstructive bowel gas pattern. Gage Bozorgmanesh, MD Gall Bladder Ultrasound 01/11/182007 Signed Impressions: Service Date/Time: Thursday, January 11, 2018 21:10 - CONCLUSION: 1. Cirrhotic liver with portal hypertension and ascites. 2. Wall thickening of the gallbladder, nonspecific but probably related to ascites and chronic liver disease. Negative sonographic Muniz's sign. 3. Nonspecific but not significantly changed prominence of the common bile duct. No stones are seen. Messi Dalal MD Chest X-Ray 01/11/18124 Signed Impressions: Service Date/Time: Thursday, January 11, 2018 02:09 - CONCLUSION: Subsegmental airspace disease at the lung bases, possibly atelectasis. Dion Pagan MD Abdomen/Pelvis CT 01/11/18124 Signed Impressions: Service Date/Time: Thursday, January 11, 2018 02:47 - CONCLUSION: 1. Diffuse mural thickening of the colon most characteristic of a colitis. Also mild mural edema of small bowel. 2. Liver cirrhosis with moderate to severe ascites and varices. 3. Small hiatal hernia. Tiny renal cysts. Dion Pagan MD Physical Exam HEENT: normocephalic; atraumatic; + icterus CHEST: CTA respirations shallow CARDIAC: irr HR ABDOMEN: firm, distended, exquisitely TTP diffusely, bowel sounds hypoactive, less active than yesterday EXTREMITIES: No clubbing, cyanosis, or edema. SKIN: Normal; no rash; no jaundice. 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 pt extremely tender, abd firm and distended GS has been consulted - melanotic stool - reported melena. pt noticed black tarry stool for last 2 weeks - hx cirrhosis, etoh - s/p paracentesis, 2nd in 2 weeks 01/12/18 pt and agreeable to proceed with flex sig today to r/o colitis. pain unchanged. abd firm, distended, tender. PLAN - flex sig - monitor labs - supportive care - no etoh - further recs to follow pt seen by myself and DR Telles and this note is on his behalf (Milly Cline) Physician Comments Patient seen and examined Agree with above Continue with current supportive care Monitor lab Flexible sigmoidoscopy today (Julián Telles MD) Milly Cline Jan 12, 2018 11:00 Julián Telles MD Jan 12, 2018 20:33
--- NOTE | 2018-01-12 11:57 | EKG ---
Date Performed: 01/12/2018 Time Performed: 08:03:46 PTAGE: 58 years EKG: Sinus tachycardia with PAC(s). Possible inferior infarct - age undetermined Possible anteri or infarct - age undetermined Low QRS voltages in precordial leads Nonspecific T wave abnormality Abn ormal ECG NO PREVIOUS TRACING DOCTOR: Star Huizar Interpretating Date/Time 01/12/2018 11:55:46
[2018-01-12] MEDS ORDERED: PROPOFOL 200 MG/20 ML AMP IV ONE (12:00)
[2018-01-12] MEDS ORDERED: PHENYLEPH/NS 1000 MCG/10 ML SYR IV ONE (12:00)
[2018-01-12] MEDS: FLUCONAZOLE 400 MG PREMIX BAG 200 ML IV SCH (12:14)
[2018-01-12 12:37] LABS: AMYLASE BODY FLUID 595 U/L; AMYLASE BODY FLUID TYPE PRTITONEAL
--- NOTE | 2018-01-12 14:33 | PD.PROCEDR ---
GI Procedure PROCEDURE PERFORMED Flexible sigmoidoscopy with biopsy INDICATION FOR PROCEDURE Abnormal appearing colon on CT suggestive of colitis with leukocytosis and peritonitis PROCEDURE: The procedure, risks and benefits were discussed with Patient/POA and informed consent was obtained. Anesthesia sedated Patient with Diprivan. Patient was placed in the left lateral decubitus position. Flexible Sigmoidoscopy: The Pentax videoscope was introduced through the rectum and advanced to the sigmoid. Retroflexion was performed in the rectum. Colonic prep was fair to good FINDINGS: As the scope was slowly withdrawn colonic mucosa was carefully inspected this was noted to be unremarkable we did reach the descending colon and no mucosal abnormalities were noted random biopsies were taken from the descending colon no evidence of C. difficile no evidence of ischemia no evidence of infection or inflammation this was unremarkable all the way ESTIMATED BLOOD LOSS: None SPECIMENS REMOVED: Descending colon biopsies COMPLICATIONS: None IMPRESSION: Normal flexible sigmoidoscopy PLAN: Await biopsy Doubt any source of infection or inflammation or any contributing factor to the abdominal pain or the peritonitis from the colon Continue with present supportive care Further plans as per the infectious disease and surgical services Julián Telles MD Jan 12, 2018 14:33
[2018-01-12] MEDS ORDERED: DO NOT ADM ANY ANTICOAGULANT DRUGS PRN (15:15)
[2018-01-12] MEDS: ENOXAPARIN SODIUM 40 MG/0.4 ML SYRINGE SQ SCH (15:34)
[2018-01-12] MEDS: VANCOMYCIN 1,000 MG/NS 250 ML IV SCH ×2 (15:47)
[2018-01-12 20:24] LABS: INTERNATIONAL NORMALIZED RATIO 1.7 RATIO; PROTHROMBIN TIME - PATIENT 16.9 SEC (9.8-11.6)
[2018-01-12 20:37] LABS: ALBUMIN 2.5 GM/DL (3.4-5.0); BICARBONATE 17.2 MEQ/L (21.0-32.0); CALCIUM 7.2 MG/DL (8.5-10.1); CREATININE 0.56 MG/DL (0.50-1.00)
[2018-01-12 20:40] LABS: CALCIUM-PROTEIN CORRECTED 8.5 MG/DL (8.5-10.1); TOTAL BILIRUBIN ADULT 3.2 MG/DL (0.2-1.0); TOTAL PROTEIN 4.8 GM/DL (6.4-8.2)
[2018-01-13] VITALS (29 sets, daily range): BP systolic 117–145; BP diastolic 74–103; PULSE 96–146; RESP 9–17; TEMP 97.7–98; O2SAT 93–100
[2018-01-13] MEDS: metroNIDAZOLE 500 MG TAB PO SCH ×3 (03:07→18:00)
[2018-01-13] MEDS: AZTREONAM INJ 2,000 MG in SODIUM CHLORIDE 0.9% INJ 100 ML IV SCH ×3 (03:08→18:00)
[2018-01-13] MEDS: MORPHINE SULFATE 4 MG/ML INJ IV PRN ×7 (03:08→23:00)
[2018-01-13] MEDS: ENOXAPARIN SODIUM 40 MG/0.4 ML SYRINGE SQ SCH (03:08)
[2018-01-13 03:48] LABS: AUTOMATED NEUTROPHIL # 35.4 TH/MM3 (1.8-7.7); BASOPHIL % 0.1 % (0.0-2.0); EOSINOPHIL % 0.1 % (0.0-4.0); HEMATOCRIT 31.4 % (35.0-46.0); HEMOGLOBIN 10.4 GM/DL (11.6-15.3); LYMPH % 3.8 % (9.0-44.0); LYMPHOCYTE # 1.4 TH/MM3 (1.0-4.8); MEAN CELL VOLUME 106.8 FL (80.0-100.0); MEAN CORPUSCULAR HEMOGLOBIN 35.2 PG (27.0-34.0); MONO % 1.8 % (0.0-8.0); MONOCYTE # 0.7 TH/MM3 (0-0.9); NEUT % 94.2 % (16.0-70.0); PLATELET COUNT 157 TH/MM3 (150-450); RED BLOOD COUNT 2.94 MIL/MM3 (4.00-5.30); RED CELL DISTRIBUTION WIDTH 18.6 % (11.6-17.2); WHITE BLOOD COUNT 37.5 TH/MM3 (4.0-11.0)
[2018-01-13 04:16] LABS: ALBUMIN 2.3 GM/DL (3.4-5.0); BICARBONATE 18.6 MEQ/L (21.0-32.0); CALCIUM 7.2 MG/DL (8.5-10.1); CALCIUM-PROTEIN CORRECTED 8.5 MG/DL (8.5-10.1); CREATININE 0.55 MG/DL (0.50-1.00); MAGNESIUM 1.8 MG/DL (1.5-2.5); PHOSPHORUS 2.4 MG/DL (2.5-4.9); TOTAL BILIRUBIN ADULT 3.1 MG/DL (0.2-1.0); TOTAL PROTEIN 4.7 GM/DL (6.4-8.2)
[2018-01-13 04:33] LABS: BANDS 8 % (0-6); DOHLE BODIES PRESENT (NONE SEEN); LYMPHOCYTES 5 % (9-44); NEUTROPHIL # MANUAL DIFF 35.6 TH/MM3 (1.8-7.7); POLYS (SEG NEUTROPHILS) 86 % (16-70); PROMYELOCYTES 1 % (0-0); TOXIC GRANULATION 1+ (NORMAL); TOXIC VACUOLATION PRESENT (NONE SEEN)
[2018-01-13] MEDS: INSULIN ASPART SUPPLEMENTAL SCALE SQ SCH ×4 (05:30→23:04)
--- NOTE | 2018-01-13 05:53 | RADRPT ---
EXAM DATE/TIME: 01/13/2018 04:28 [place] COMPARISON: CHEST SINGLE AP, January 11, 2018, 2:09. INDICATIONS : Short of breath. MEDICAL HISTORY : Cirrhosis. SURGICAL HISTORY : None. ENCOUNTER: Subsequent ACUITY: 4 - 6 days PAIN SCORE: 0/10 LOCATION: Bilateral chest FINDINGS: Mild pulmonary edema pattern with bilateral effusions, left greater than right. Cardiomegaly. No pneu mothorax. CONCLUSION: 1. Mild pulmonary edema pattern with bilateral effusions. Findings have worsened since January 11. Dion Pagan MD on January 13, 2018 at 5:51 Board Certified Radiologist. This report was verified electronically.
[2018-01-13] MEDS ORDERED: PHARMACY ORDERED LAB ONE (07:45)
[2018-01-13] MEDS: VANCOMYCIN 1,000 MG/NS 250 ML IV SCH ×2 (08:00)
--- NOTE | 2018-01-13 08:13 | HHI.IDPN ---
Subjective Subjective Remarks Patient is a 58-year-old female with Dx of liver cirrhosis, presented to the hospital C/P worsening diffuse abdominal pain. She has had some vomiting and diarrhea at home. She was recently hospitalized January 02 - January 06 at [facility]. During that time she had liver failure with ascites, and underwent paracentesis with drainage of 4.5 L of fluid. Fluid analysis did not show any evidence of peritonitis. She received Levaquin, and when the peritoneal fluid came back negative she did not get any further antibiotics. She was discharged, and apparently started having severe abdominal pain which worsened. There was no mention of any fever or chills. Evaluation on this admission showed leukocytosis of 11,000. She is afebrile, and tachycardic which has improved. CT of the abdomen and pelvis showed moderate ascites and there is evidence of bowel wall thickening consistent with colitis. Patient underwent paracentesis this morning. She is currently complaining of severe abdominal pain. Infectious disease consultation has been requested to evaluate the patient for sepsis. Notes reviewed Discussed with RN Sd ok BP ok, not on pressors Abdominal pain seems better Flexible sigmoidoscopy done yesterday, no significant abnormality seen WBC keeps rising Blood cultures have been negative PD fluid 5000, all neutrophils PD fluid C/S -24 hours No BM recorded Antibiotics Vancomycin IV Azactam IV Flagyl po Diflucan Current Medications Medications (Trade) Dose Ordered Sig/Dmitri Route Start Time Stop Time Status Last Admin Norepinephrine Bitartrate 250 ml @ 7.5 mls/hr TITRATE PRN IV 01/11/18 03:45 (Brethine Inj) 1 mg UNSCH PRN SQ 01/11/18 03:45 (NS Flush) 2 ml UNSCH PRN IV FLUSH 01/11/18 07:00 (NS Flush) 2 ml BID IV FLUSH 01/11/18 09:00 01/12/18 19:57 (Protonix Inj) 40 mg DAILY IV PUSH 01/11/18 09:00 01/12/18 07:43 (Zofran Inj) 4 mg Q6H PRN IV PUSH 01/11/18 07:00 (Reglan Inj) 10 mg Q6H PRN IV PUSH 01/11/18 07:00 (Duoneb Neb) 1 ampule Q2HR NEB PRN INH 01/11/18 07:00 Miscellaneous Information 1 Q361D XX 01/11/18 07:00 01/11/18 07:00 (Chlorhexidine 2% Cloth) 3 pack Taper DAILY@04 TOP 01/12/18 04:00 01/08/19 03:59 01/12/18 20:19 (Chlorhexidine 2% Cloth) 3 pack UNSCH PRN TOP 01/11/18 07:00 (Floresita-Colace) 1 tab BID PO 01/11/18 09:00 01/12/18 19:57 (Milk Of Magnesia Liq) 30 ml Q12H PRN PO 01/11/18 07:00 (Senokot) 17.2 mg Q12H PRN PO 01/11/18 07:00 (Dulcolax Supp) 10 mg DAILY PRN RECTAL 01/11/18 07:00 (Lactulose Liq) 30 ml DAILY PRN PO 01/11/18 07:00 Aztreonam 2000 mg/ Sodium Chloride 100 ml @ 200 mls/hr Q8H IV 01/11/18 10:00 01/13/18 03:08 (Flagyl) 500 mg Q8H PO 01/11/18 10:00 01/13/18 03:07 Pharmacy Profile Note 0 ml @ 0 mls/hr UNSCH OTHER 01/11/18 08:00 (NovoLOG SUPPLEMENTAL SCALE) 1 Q6HR SQ 01/11/18 12:00 (D50w (Vial) Inj) 25 ml UNSCH PRN IV 01/11/18 07:15 (Glucagon Inj) 1 mg UNSCH PRN IM/SQ 01/11/18 07:15 Vancomycin HCl 1000 mg/Sodium Chloride 250 ml @ 250 mls/hr Q18H IV 01/11/18 20:00 01/12/18 15:47 Dextrose/Sodium Chloride 1,000 ml @ 125 mls/hr Q8H IV 01/11/18 09:15 01/12/18 23:53 Potassium Chloride 100 ml @ 50 mls/hr Q2H PRN IV 01/12/18 01:45 Potassium Chloride 100 ml @ 50 mls/hr Q2H PRN IV 01/12/18 01:45 01/12/18 02:13 (K-Lyte Cl Eff) 50 meq UNSCH PRN PO 01/12/18 01:45 Potassium Chloride 100 ml @ 25 mls/hr UNSCH PRN IV 01/12/18 01:45 Potassium Chloride 100 ml @ 50 mls/hr Q2H PRN IV 01/12/18 01:45 01/12/18 02:13 Magnesium Sulfate 4 gm/Sodium Chloride 100 ml @ 50 mls/hr UNSCH PRN IV 01/12/18 01:45 (Mag-Ox) 800 mg UNSCH PRN PO 01/12/18 01:45 Magnesium Sulfate 2 gm/Sodium Chloride 100 ml @ 50 mls/hr UNSCH PRN IV 01/12/18 01:45 (K-Phos) 2,000 mg Q4H PRN PO 01/12/18 01:45 Sodium Phosphate 30 mmol/Sodium Chloride 250 ml @ 42 mls/hr UNSCH PRN IV 01/12/18 01:45 01/12/18 19:57 (K-Phos) 2,000 mg UNSCH PRN PO/TUBE 01/12/18 01:45 Potassium Phosphate 30 mmol/ Sodium Chloride 260 ml @ 42 mls/hr UNSCH PRN IV 01/12/18 01:45 Fluconazole/ Sodium Chloride 200 ml @ 100 mls/hr Q24H IV 01/12/18 11:00 01/12/18 12:14 (Morphine Inj) 4 mg Q2H PRN IV 01/12/18 10:15 01/13/18 05:31 Miscellaneous Information ALL NURSING DEPARTME... UNSCH PRN .XX 01/12/18 15:15 01/13/18 15:14 (Lovenox Inj) 40 mg Q24H SQ 01/13/18 03:00 01/13/18 03:08 Lines No evidence of infection Past Medical History Liver cirrhosis Back pain Arthritis Allergies: Coded Allergies: doxycycline (Unverified Allergy, Severe, 01/11/18) minocycline (Unverified Allergy, Severe, 01/11/18) penicillin G (Unverified Allergy, Severe, 01/11/18) tigecycline (Unverified Allergy, Severe, 01/11/18) Objective . Vital Signs Date Time Temp Pulse Resp B/P (MAP) Pulse Ox O2 Delivery O2 Flow Rate FiO2 01/13/18 06:00 109 01/13/18 04:00 108 01/13/18 04:00 97.7 108 16 120/79 (93) 97 01/13/18 02:00 96 01/13/18 00:00 98.0 104 14 126/74 (91) 97 01/13/18 00:00 104 01/12/18 22:00 94 01/12/18 20:00 97.4 109 28 132/68 (89) 96 01/12/18 20:00 109 01/12/18 19:00 97 Nasal Cannula 2.00 01/12/18 18:00 114 01/12/18 16:00 97.5 102 14 114/58 (76) 94 01/12/18 16:00 102 01/12/18 15:00 90 14 109/70 (83) 97 Nasal Cannula 2 01/12/18 14:45 97.9 89 13 107/64 (78) 99 Nasal Cannula 2 01/12/18 14:30 92 12 107/68 (81) 98 Nasal Cannula 2 01/12/18 14:19 96.4 94 16 110/70 (83) 96 Nasal Cannula 2 01/12/18 13:45 106 25 111/73 (86) 99 01/12/18 13:30 128 21 120/73 (89) 99 01/12/18 13:14 97.8 137 25 121/76 (91) 97 01/12/18 13:14 98 3 01/12/18 12:00 97.7 101 14 109/69 (82) 97 01/12/18 12:00 101 01/12/18 11:14 20 01/12/18 10:00 132 . Laboratory Tests Test 01/12/18 05:45 01/13/18 03:00 White Blood Count 32.5 TH/MM3 37.5 TH/MM3 Red Blood Count 2.99 MIL/MM3 2.94 MIL/MM3 Hemoglobin 10.6 GM/DL 10.4 GM/DL Hematocrit 32.0 % 31.4 % Mean Corpuscular Volume 107.1 FL 106.8 FL Mean Corpuscular Hemoglobin 35.5 PG 35.2 PG Mean Corpuscular Hemoglobin Concent 33.2 % 33.0 % Red Cell Distribution Width 18.5 % 18.6 % Platelet Count 185 TH/MM3 157 TH/MM3 Mean Platelet Volume 9.7 FL 10.0 FL Neutrophils (%) (Auto) 93.5 % 94.2 % Lymphocytes (%) (Auto) 4.3 % 3.8 % Monocytes (%) (Auto) 2.1 % 1.8 % Eosinophils (%) (Auto) 0.0 % 0.1 % Basophils (%) (Auto) 0.1 % 0.1 % Neutrophils # (Auto) 30.4 TH/MM3 35.4 TH/MM3 Lymphocytes # (Auto) 1.4 TH/MM3 1.4 TH/MM3 Monocytes # (Auto) 0.7 TH/MM3 0.7 TH/MM3 Eosinophils # (Auto) 0.0 TH/MM3 0.0 TH/MM3 Basophils # (Auto) 0.0 TH/MM3 0.0 TH/MM3 CBC Comment AUTO DIFF AUTO DIFF Differential Total Cells Counted 100 100 Neutrophils % (Manual) 60 % 86 % Band Neutrophils % 34 % 8 % Lymphocytes % 4 % 5 % Monocytes % 2 % Neutrophils # (Manual) 30.6 TH/MM3 35.6 TH/MM3 Differential Comment FINAL DIFF MANUAL FINAL DIFF MANUAL Toxic Granulation 3+ 1+ Platelet Estimate NORMAL NORMAL Platelet Morphology Comment CLUMPED NORMAL Promyelocytes 1 % Toxic Vacuolation PRESENT Dohle Bodies PRESENT Red Cell Morphology Comment NORMAL Laboratory Tests Test 01/11/18 17:10 01/12/18 05:45 01/12/18 18:46 01/13/18 03:00 Blood Urea Nitrogen 24 MG/DL 19 MG/DL 18 MG/DL 16 MG/DL Creatinine 0.78 MG/DL 0.63 MG/DL 0.56 MG/DL 0.55 MG/DL Random Glucose 195 MG/DL 169 MG/DL 159 MG/DL 153 MG/DL Total Protein 5.1 GM/DL 5.2 GM/DL 4.8 GM/DL 4.7 GM/DL Albumin 2.5 GM/DL 2.6 GM/DL 2.5 GM/DL 2.3 GM/DL Calcium Level 7.0 MG/DL 7.0 MG/DL 7.2 MG/DL 7.2 MG/DL Alkaline Phosphatase 212 U/L 195 U/L 187 U/L 203 U/L Aspartate Amino Transf (AST/SGOT) 89 U/L 75 U/L 76 U/L 74 U/L Alanine Aminotransferase (ALT/SGPT) 34 U/L 28 U/L 26 U/L 27 U/L Total Bilirubin 3.8 MG/DL 3.6 MG/DL 3.2 MG/DL 3.1 MG/DL Sodium Level 135 MEQ/L 138 MEQ/L 138 MEQ/L 141 MEQ/L Potassium Level 3.4 MEQ/L 4.1 MEQ/L 3.7 MEQ/L 3.6 MEQ/L Chloride Level 103 MEQ/L 110 MEQ/L 110 MEQ/L 113 MEQ/L Carbon Dioxide Level 18.9 MEQ/L 17.0 MEQ/L 17.2 MEQ/L 18.6 MEQ/L Anion Gap 13 MEQ/L 11 MEQ/L 11 MEQ/L 9 MEQ/L Estimat Glomerular Filtration Rate 76 ML/MIN 97 ML/MIN 111 ML/MIN 114 ML/MIN Lactic Acid Level 3.6 mmol/L 3.6 mmol/L 3.4 mmol/L Protein Corrected Calcium 8.1 MG/DL 8.0 MG/DL 8.5 MG/DL 8.5 MG/DL Phosphorus Level 1.4 MG/DL 2.4 MG/DL Magnesium Level 1.9 MG/DL 1.8 MG/DL Iron Level 16 MCG/DL Ferritin 896 NG/ML Microbiology Date/Time Source Procedure Growth Status 01/11/18 01:55 Blood Peripheral Aerobic Blood Culture - Preliminary NO GROWTH IN 1 DAY Resulted 01/11/18 01:55 Blood Peripheral Anaerobic Blood Culture - Preliminary NO GROWTH IN 1 DAY Resulted 01/11/18 01:50 Blood Peripheral Aerobic Blood Culture - Preliminary NO GROWTH IN 1 DAY Resulted 01/11/18 01:50 Blood Peripheral Anaerobic Blood Culture - Preliminary NO GROWTH IN 1 DAY Resulted 01/11/18 09:30 Fluid Peritoneal Fluid Gram Stain - Final Resulted 01/11/18 09:30 Fluid Peritoneal Fluid Body Fluid Culture - Preliminary NO GROWTH IN 24 HOURS. Resulted Imaging Last Impressions Abdomen X-Ray 01/12/18 Signed Impressions: Service Date/Time: Friday, January 12, 2018 08:07 - CONCLUSION: 1. Nonobstructive bowel gas pattern. Gage Anderson MD Gall Bladder Ultrasound 01/11/182007 Signed Impressions: Service Date/Time: Thursday, January 11, 2018 21:10 - CONCLUSION: 1. Cirrhotic liver with portal hypertension and ascites. 2. Wall thickening of the gallbladder, nonspecific but probably related to ascites and chronic liver disease. Negative sonographic Muniz's sign. 3. Nonspecific but not significantly changed prominence of the common bile duct. No stones are seen. Messi Dalal MD Chest X-Ray 01/11/18124 Signed Impressions: Service Date/Time: Thursday, January 11, 2018 02:09 - CONCLUSION: Subsegmental airspace disease at the lung bases, possibly atelectasis. Dion Pagan MD Abdomen/Pelvis CT 01/11/18124 Signed Impressions: Service Date/Time: Thursday, January 11, 2018 02:47 - CONCLUSION: 1. Diffuse mural thickening of the colon most characteristic of a colitis. Also mild mural edema of small bowel. 2. Liver cirrhosis with moderate to severe ascites and varices. 3. Small hiatal hernia. Tiny renal cysts. Dion Pagan MD Physical Exam GENERAL: Awakens easily, slow to answer. Looks chronically ill appearing, not in respiratory distress. SKIN: Cool and dry. Has scattered purpuric areas, has jaundice. HEAD: Atraumatic. Normocephalic. No temporal wasting, or tenderness. EYES: Pale conjunctiva. No petechia or hemorrhage. Pupils equal, round and reactive to light. Extraocular movements full and intact. Has scleral icterus. No injection or drainage. EARS, NOSE AND THROAT: Nose without bleeding or purulent nasal discharge. No sinus tenderness. Dry oral mucosa. NECK: Trachea midline. Supple and not tender, no meningeal signs. Has fatty pad tissue at base of both neck CARDIOVASCULAR: Regular rate and rhythm. No murmurs, rubs or gallops heard RESPIRATORY: Clear to auscultation. Breath sounds equal bilaterally. No rales , wheezing or rhonchi. Decreased breath sounds at bases. ABDOMEN: Distended, less tender, markedly improved compared to yesterday. Hypoactive bowel sounds. EXTREMITIES: No clubbing, cyanosis. Has bilateral pitting pedal edema. No calf tenderness. . NEUROLOGICAL: Awake and slow to answer. Cranial nerves grossly intact. Motor grossly within normal limits. PSYCHIATRIC: cooperative. LINE: No evidence of infection Assessment & Plan Remarks IMPRESSION Severe abdominal pain, ?SBP, has colitis on CT, ?C diff colitis Colitis on CT, had some diarrhea, R/O C diff -Flexible sigmoidoscopy no abnormality seen Liver cirrhosis, with portal HTN, prob ETOH etiology - hepatitis serologies negative Leukocytosis, worse. etiology? RECOMMENDATION Follow C/S Follow CBC Continue Diflucan Continue Azactam Continue Vanco Continue Flagyl Monitor progress Discussed with Rocio Griggs MD Jan 13, 2018 08:13
[2018-01-13] MEDS: DOCUSATE SODIUM 50 MG/SENNA 8.6 MG TAB PO SCH ×2 (09:00→20:29)
[2018-01-13] MEDS: PANTOPRAZOLE SODIUM 40 MG VIAL IV PUSH SCH (09:00)
[2018-01-13] MEDS: SODIUM CHLORIDE 0.9% FLUSH 10 ML FLUSH IV FLUSH SCH ×2 (09:00→20:29)
[2018-01-13] MEDS: DEXT 5%-NACL 0.9% 1000 ML INJ 1,000 ML IV SCH (09:15)
--- NOTE | 2018-01-13 10:11 | HHI.GIFU ---
Subjective Remarks Pt resting in bed, napping. Did not rouse to my exam. Per RN got pain meds throughout the night. (Milly Cline) Objective Vitals I&O Vital Signs Date Time Temp Pulse Resp B/P (MAP) Pulse Ox O2 Delivery O2 Flow Rate FiO2 01/13/18 06:00 109 01/13/18 04:00 108 01/13/18 04:00 97.7 108 16 120/79 (93) 97 01/13/18 02:00 96 01/13/18 00:00 98.0 104 14 126/74 (91) 97 01/13/18 00:00 104 01/12/18 22:00 94 01/12/18 20:00 97.4 109 28 132/68 (89) 96 01/12/18 20:00 109 01/12/18 19:00 97 Nasal Cannula 2.00 01/12/18 18:00 114 01/12/18 16:00 97.5 102 14 114/58 (76) 94 01/12/18 16:00 102 01/12/18 15:00 90 14 109/70 (83) 97 Nasal Cannula 2 01/12/18 14:45 97.9 89 13 107/64 (78) 99 Nasal Cannula 2 01/12/18 14:30 92 12 107/68 (81) 98 Nasal Cannula 2 01/12/18 14:19 96.4 94 16 110/70 (83) 96 Nasal Cannula 2 01/12/18 13:45 106 25 111/73 (86) 99 01/12/18 13:30 128 21 120/73 (89) 99 01/12/18 13:14 97.8 137 25 121/76 (91) 97 01/12/18 13:14 98 3 01/12/18 12:00 97.7 101 14 109/69 (82) 97 01/12/18 12:00 101 01/12/18 11:14 20 I/O 01/12/18 01/12/18 01/12/18 01/13/18 01/13/18 01/13/18 07:00 15:00 23:00 07:00 15:00 23:00 Intake Total 2680 ml 240 ml 2013 ml 730 ml Output Total 360 ml 200 ml 125 ml 300 ml Balance 2320 ml 40 ml 1888 ml 430 ml Intake Oral 30 ml 125 ml 50 ml IV Total 2650 ml 140 ml 1888 ml 680 ml Other 100 ml Output Urine Total 360 ml 200 ml 125 ml 300 ml Laboratory Laboratory Tests Test 01/12/18 18:46 01/13/18 03:00 Prothrombin Time 16.9 Prothromb Time International Ratio 1.7 Blood Urea Nitrogen 18 16 Creatinine 0.56 0.55 Random Glucose 159 153 Total Protein 4.8 4.7 Albumin 2.5 2.3 Calcium Level 7.2 7.2 Alkaline Phosphatase 187 203 Aspartate Amino Transf (AST/SGOT) 76 74 Alanine Aminotransferase (ALT/SGPT) 26 27 Total Bilirubin 3.2 3.1 Sodium Level 138 141 Potassium Level 3.7 3.6 Chloride Level 110 113 Carbon Dioxide Level 17.2 18.6 Anion Gap 11 9 Estimat Glomerular Filtration Rate 111 114 Lactic Acid Level 3.4 Protein Corrected Calcium 8.5 8.5 White Blood Count 37.5 Red Blood Count 2.94 Hemoglobin 10.4 Hematocrit 31.4 Mean Corpuscular Volume 106.8 Mean Corpuscular Hemoglobin 35.2 Mean Corpuscular Hemoglobin Concent 33.0 Red Cell Distribution Width 18.6 Platelet Count 157 Mean Platelet Volume 10.0 Neutrophils (%) (Auto) 94.2 Lymphocytes (%) (Auto) 3.8 Monocytes (%) (Auto) 1.8 Eosinophils (%) (Auto) 0.1 Basophils (%) (Auto) 0.1 Neutrophils # (Auto) 35.4 Lymphocytes # (Auto) 1.4 Monocytes # (Auto) 0.7 Eosinophils # (Auto) 0.0 Basophils # (Auto) 0.0 CBC Comment AUTO DIFF Differential Total Cells Counted 100 Neutrophils % (Manual) 86 Band Neutrophils % 8 Lymphocytes % 5 Neutrophils # (Manual) 35.6 Promyelocytes 1 Differential Comment FINAL DIFF MANUAL Toxic Granulation 1+ Toxic Vacuolation PRESENT Dohle Bodies PRESENT Platelet Estimate NORMAL Platelet Morphology Comment NORMAL Red Cell Morphology Comment NORMAL Phosphorus Level 2.4 Magnesium Level 1.8 Date/Time Source Procedure Growth Status 01/11/18 01:55 Blood Peripheral Aerobic Blood Culture - Preliminary NO GROWTH IN 1 DAY Resulted 01/11/18 01:55 Blood Peripheral Anaerobic Blood Culture - Preliminary NO GROWTH IN 1 DAY Resulted 01/11/18 09:30 Fluid Peritoneal Fluid Gram Stain - Final Resulted 01/11/18 09:30 Fluid Peritoneal Fluid Body Fluid Culture - Preliminary NO GROWTH IN 24 HOURS. Resulted Imaging Last Impressions Chest X-Ray 01/13/18 0600 Signed Impressions: Service Date/Time: Saturday, January 13, 2018 04:28 - CONCLUSION: 1. Mild pulmonary edema pattern with bilateral effusions. Findings have worsened since January 11. Dion Pagan MD Abdomen X-Ray 01/12/18 0000 Signed Impressions: Service Date/Time: Friday, January 12, 2018 08:07 - CONCLUSION: 1. Nonobstructive bowel gas pattern. Gage Anderson MD Gall Bladder Ultrasound 01/11/182007 Signed Impressions: Service Date/Time: Thursday, January 11, 2018 21:10 - CONCLUSION: 1. Cirrhotic liver with portal hypertension and ascites. 2. Wall thickening of the gallbladder, nonspecific but probably related to ascites and chronic liver disease. Negative sonographic Muniz's sign. 3. Nonspecific but not significantly changed prominence of the common bile duct. No stones are seen. Messi Dalal MD Abdomen/Pelvis CT 01/11/18 0125 Signed Impressions: Service Date/Time: Thursday, January 11, 2018 02:47 - CONCLUSION: 1. Diffuse mural thickening of the colon most characteristic of a colitis. Also mild mural edema of small bowel. 2. Liver cirrhosis with moderate to severe ascites and varices. 3. Small hiatal hernia. Tiny renal cysts. Dion Pagan MD Physical Exam HEENT: normocephalic; atraumatic; + icterus CHEST: CTA respirations shallow CARDIAC: tachy ABDOMEN: firm, distended, exquisitely TTP diffusely, bowel sounds hypoactive, less active than yesterday EXTREMITIES: No clubbing, cyanosis, + pitting BLE edema SKIN: Normal; no rash; no jaundice. BREAKER OILER: sleepy, lethargic (Milly Cline CHILD DEVELOPMENT SPECIALIST) Assessment and Plan Plan ASSESSMENT - abd pain - unclear etiology, ?peritonitis?ischemia recently s/p paracentesis, fluid cx pending CT showing colitis, moderate to severe ascites, varices. pt extremely tender, abd firm and distended GS has been consulted - melanotic stool - reported melena. pt noticed black tarry stool for last 2 weeks - hx cirrhosis, etoh - s/p paracentesis, 2nd in 2 weeks 01/12/18 pt and agreeable to proceed with flex sig today to r/o colitis. pain unchanged. abd firm, distended, tender. 01/13/18 pt seems more comfortable today. WBC trending up. s/p flex sig 01/12 unremarkable, colon does not appear to be source of sx or infection. peritoneal fluid no growth 24h. exudent present, no malignant cells. d/w CCM ? gallbladder LFTs are stable. PLAN - await ID f/u - abx per ID - monitor labs - supportive care - no etoh pt seen by myself and DR Tleles and this note is on his behalf (Milly Cline) Physician Comments Patient seen and examined Agree with above Continue with current supportive care Monitor labs I would favor repeat paracentesis to drain as much as possible If pain persists may also contemplate repeat CT of the abdomen with contrast Await surgical opinion (Julián Telles MD) Milly Cline Jan 13, 2018 10:11 Julián Telles MD Jan 13, 2018 21:13
[2018-01-13] MEDS: FLUCONAZOLE 400 MG PREMIX BAG 200 ML IV SCH (11:00)
[2018-01-13] MEDS: SPIRONOLACTONE 50 MG TAB PO SCH (11:02)
[2018-01-13 13:46] LABS: SMOOTH MUSCLE TOTAL AUTOABS Negative (Negative)
--- NOTE | 2018-01-13 14:36 | HHI.CCPN ---
Subjective Remarks/Hospital Course 01/11: 58-year-old female presents to the emergency department by private transportation the care of her spouse for evaluation of severe abdominal pain. Patient was recently hospitalized 01/02/18 through 01/06/18 for evaluation of liver failure with ascites at [facility]. During her hospitalization she underwent paracentesis of 4-1/2 L of ascitic fluid and was discharged with recommendation for follow-up with GI and had an appointment for next week. She did receive 1 dose of Levaquin during the hospitalization in the ER which was discontinued at the time since her ascites fluid did not suggest peritonitis and her peritoneal fluid cultures did not reveal any growth at 72 hours. No report of fever or chills. Patient previous alcohol consumer but no alcohol since last hospitalization about 10 days back. Patient was discharged on spironolactone metoprolol and pentoxifylline. Patient complains of severe abdominal pain which has worsened since her discharge on 01/06/18. She stated that her belly distention did not really improve significantly following her last paracentesis however her lower extremity swelling has significantly improved. She also has complained of some black stools going on for about 4-5 days. 01/12: Underwent paracentesis with drainage of about 4 L of ascitic fluid yesterday. Still having significant abdominal pain. White count has jumped to 32,000. No diarrhea since yesterday. Patient has been evaluated by GI and general surgery. Still awaiting colonoscopy for further evaluation of colitis. Has not required pressors. 01/13: Resting comfortably. Underwent sigmoidoscopy yesterday and colon was visualized up to the descending colon which did not reveal any evidence of colitis, specimens were taken for biopsy by GI results of which are pending. On gross visualization no evidence of pseudomembrane or ischemia per GI. Patient continues to have abdominal pain and leukocytosis. She is maintaining her blood pressure. Remains on nasal cannula. Objective Vital Signs Date Time Temp Pulse Resp B/P (MAP) Pulse Ox O2 Delivery O2 Flow Rate FiO2 01/13/18 12:34 16 01/13/18 06:00 109 01/13/18 04:00 97.7 120/79 (93) 97 01/12/18 19:00 Nasal Cannula 2.00 Intake and Output 01/13/18 01/13/18 01/14/18 08:00 16:00 00:00 Intake Total 50 ml Output Total 300 ml Balance -250 ml Result Diagram: 01/13/18 0300 01/13/18 0300 Imaging Last Impressions Chest X-Ray 01/11/18124 Signed Impressions: Service Date/Time: Thursday, January 11, 2018 02:09 - CONCLUSION: Subsegmental airspace disease at the lung bases, possibly atelectasis. Dion Pagan MD Abdomen/Pelvis CT 01/11/18124 Signed Impressions: Service Date/Time: Thursday, January 11, 2018 02:47 - CONCLUSION: 1. Diffuse mural thickening of the colon most characteristic of a colitis. Also mild mural edema of small bowel. 2. Liver cirrhosis with moderate to severe ascites and varices. 3. Small hiatal hernia. Tiny renal cysts. Dion Pagan MD Objective Remarks Narrative GENERAL: Very ill-appearing female with jaundice and diffuse ecchymosis in acute discomfort no respiratory distress SKIN: Warm and dry. HEAD: Normocephalic. EYES: No scleral icterus. No injection or drainage. NECK: Supple, trachea midline. No JVD or lymphadenopathy. CARDIOVASCULAR: S1-S2 irregularly irregular, no gallop or murmur. RESPIRATORY: Breath sounds equal bilaterally. No accessory muscle use. No wheezing or crackles GASTROINTESTINAL: Abdomen soft, tender to palpation with voluntary guarding and rebound, distended with fluid wave. Bowel sounds sluggish. MUSCULOSKELETAL: Trace edema lower extremities. A/P Assessment and Plan 58-year-old female with: Abdominal pain Sepsis Hypotension Liver cirrhosis Ascites Suspected peritonitis Colitis Jaundice Melena (at home) Plan: Neuro: Morphine as needed for pain. Follow neuro status. Cardiovascular: Continue IV fluids. Levophed for pressor support if needed. Albumin 25% 50 cc every 6 hourly 24 hours (01/11-01/12). Pulmonary: Supplemental O2 as needed, bronchodilators as needed. GI/liver: GI and general surgery consulted in view of peritoneal signs and colitis on CT. s/p diagnostic and therapeutic paracentesis on 01/11 with drainage of about 4 liters of ascitic fluid. Advance p.o. diet if okay with GI and general surgery. Renal/: IV hydration, strict intake output, monitor and replete electrodes, follow BUN/creatinine. ID: Follow-up blood cultures. F/u ascites fluid for Gram stain and cultures. Empiric antibiotic coverage with IV aztreonam/vancomycin, p.o. Flagyl. Check stool for C. difficile. Sigmoidoscopy did not reveal any evidence of colitis on visualization per GI.. Worsening leukocytosis noted. Lactic acid remains elevated. ID consult noted. Endocrine: SSI for glycemic control as needed. Heme: Follow CBC and coags. Prophylaxis: Protonix/SCDs/Lovenox GI/general surgery following. Sathya Griffin MD Jan 13, 2018 14:36
--- NOTE | 2018-01-13 14:36 | HHI.PR ---
cc: Dion Guzman MD Subjective Subjective Notes DAILY PROGRESS NOTE FOR SURGICAL ATTENDING, DR. DION GUZMAN Resting in bed at bedside Stilll with abdominal pain Objective Vitals/I&O Vital Signs Date Time Temp Pulse Resp B/P (MAP) Pulse Ox O2 Delivery O2 Flow Rate FiO2 01/13/18 12:34 16 01/13/18 06:00 109 01/13/18 04:00 97.7 120/79 (93) 97 01/12/18 19:00 Nasal Cannula 2.00 Labs Laboratory Tests Test 01/12/18 18:46 01/13/18 03:00 Prothrombin Time 16.9 Prothromb Time International Ratio 1.7 Blood Urea Nitrogen 18 16 Creatinine 0.56 0.55 Random Glucose 159 153 Total Protein 4.8 4.7 Albumin 2.5 2.3 Calcium Level 7.2 7.2 Alkaline Phosphatase 187 203 Aspartate Amino Transf (AST/SGOT) 76 74 Alanine Aminotransferase (ALT/SGPT) 26 27 Total Bilirubin 3.2 3.1 Sodium Level 138 141 Potassium Level 3.7 3.6 Chloride Level 110 113 Carbon Dioxide Level 17.2 18.6 Anion Gap 11 9 Estimat Glomerular Filtration Rate 111 114 Lactic Acid Level 3.4 Protein Corrected Calcium 8.5 8.5 White Blood Count 37.5 Red Blood Count 2.94 Hemoglobin 10.4 Hematocrit 31.4 Mean Corpuscular Volume 106.8 Mean Corpuscular Hemoglobin 35.2 Mean Corpuscular Hemoglobin Concent 33.0 Red Cell Distribution Width 18.6 Platelet Count 157 Mean Platelet Volume 10.0 Neutrophils (%) (Auto) 94.2 Lymphocytes (%) (Auto) 3.8 Monocytes (%) (Auto) 1.8 Eosinophils (%) (Auto) 0.1 Basophils (%) (Auto) 0.1 Neutrophils # (Auto) 35.4 Lymphocytes # (Auto) 1.4 Monocytes # (Auto) 0.7 Eosinophils # (Auto) 0.0 Basophils # (Auto) 0.0 CBC Comment AUTO DIFF Differential Total Cells Counted 100 Neutrophils % (Manual) 86 Band Neutrophils % 8 Lymphocytes % 5 Neutrophils # (Manual) 35.6 Promyelocytes 1 Differential Comment FINAL DIFF MANUAL Toxic Granulation 1+ Toxic Vacuolation PRESENT Dohle Bodies PRESENT Platelet Estimate NORMAL Platelet Morphology Comment NORMAL Red Cell Morphology Comment NORMAL Phosphorus Level 2.4 Magnesium Level 1.8 Date/Time Source Procedure Growth Status 01/11/18 01:55 Blood Peripheral Aerobic Blood Culture - Preliminary NO GROWTH IN 2 DAYS Resulted 01/11/18 01:55 Blood Peripheral Anaerobic Blood Culture - Preliminary NO GROWTH IN 2 DAYS Resulted 01/11/18 09:30 Fluid Peritoneal Fluid Gram Stain - Final Resulted 01/11/18 09:30 Fluid Peritoneal Fluid Body Fluid Culture - Preliminary NO GROWTH IN 48 HOURS. Resulted Radiology Last Impressions Abdomen X-Ray 01/12/18 0000 Signed Impressions: Service Date/Time: Friday, January 12, 2018 08:07 - CONCLUSION: 1. Nonobstructive bowel gas pattern. Gage Anderson MD Gall Bladder Ultrasound 01/11/182007 Signed Impressions: Service Date/Time: Thursday, January 11, 2018 21:10 - CONCLUSION: 1. Cirrhotic liver with portal hypertension and ascites. 2. Wall thickening of the gallbladder, nonspecific but probably related to ascites and chronic liver disease. Negative sonographic Muniz's sign. 3. Nonspecific but not significantly changed prominence of the common bile duct. No stones are seen. Messi Dalal MD Chest X-Ray 01/11/18124 Signed Impressions: Service Date/Time: Thursday, January 11, 2018 02:09 - CONCLUSION: Subsegmental airspace disease at the lung bases, possibly atelectasis. Dion Pagna MD Abdomen/Pelvis CT 01/11/18124 Signed Impressions: Service Date/Time: Thursday, January 11, 2018 02:47 - CONCLUSION: 1. Diffuse mural thickening of the colon most characteristic of a colitis. Also mild mural edema of small bowel. 2. Liver cirrhosis with moderate to severe ascites and varices. 3. Small hiatal hernia. Tiny renal cysts. Dion Pagan MD Cardiovascular: Regular Lungs: Clear Abdomen: Other (distended seconary to ascites; tender througout ) Extremities: No edema A/P Problem List: (1) Colitis ICD Codes: K52.9 - Noninfective gastroenteritis and colitis, unspecified Status: Acute (2) Abdominal pain ICD Codes: R10.9 - Unspecified abdominal pain Status: Acute (3) Cirrhosis ICD Codes: K74.60 - Unspecified cirrhosis of liver Status: Chronic (4) Hepatic insufficiency ICD Codes: K72.90 - Hepatic failure, unspecified without coma Status: Chronic (5) Tachycardia ICD Codes: R00.0 - Tachycardia, unspecified (6) Hyperkalemia ICD Codes: E87.5 - Hyperkalemia (7) Hyponatremia ICD Codes: E87.1 - Hypo-osmolality and hyponatremia (8) Lactic acidosis ICD Codes: E87.2 - Acidosis Status: Acute (9) Peritonitis ICD Codes: K65.9 - Peritonitis, unspecified Status: Acute Assessment and Plan 58-year-old female with ascites; abdominal pain; elevated WBC -Continue to monitor WBC; increased today -s/p colonoscopy shows no acute findings -ID following -May benefit from repeat paracentesis -Patient is a high risk for any surgical procedure Attending Statement NOTE FOR SURGICAL ATTENDING, DR. DION GUZMAN Patient seen at bedside resting comfortable at bedside Spoke to him about high surgical risk and his . Continue maximal medical therapy I agree with above assessment and plan. The exam, history, and the medical decision-making described in the above note were completed with the assistance of the mid-level provider. I reviewed and agree with the findings presented. I attest that I had a [id number] encounter with the patient on the same day, and personally performed and documented my assessment and findings in the medical record. The following services were provided during this hospital visit: Chart data review, vital sign assessments/reviewing monitor data Review of consultations notes if present. Medication orders/review and/or management Ordering and/or reviewing lab tests Ordering and/or interpreting/reviewing x-rays and/or diagnostic studies Care of the patient and discussion of the patient with the care team Documentation time To help prompt me to consider important information that might be impacting today's encounter and assessment, Information from prior notes written by myself or my colleagues may have been "brought forward/copy and pasted" into today's note. Problem Qualifiers (1) Abdominal pain: Qualified Codes: R10.84 - Generalized abdominal pain (2) Cirrhosis: Trupti StevensP/[employer] Jan 13, 2018 14:36 Dion Guzman MD Jan 13, 2018 15:47
--- NOTE | 2018-01-13 15:39 | ECHRPT ---
Indication: CONCLUSIONS The left ventricular systolic function is low normal with an estimated ejection fraction in the rang e of 50- 55%. Wall thickness is measured at the upper limits of normal. Normal left ventricular size. Mitral annular calcification is present. Moderate mitral valve regurgitation. Aortic valve sclerosis is present. [id number] aortic valve regurgitation. There is moderate to severe tricuspid valve regurgitation. The estimated pulmonary arterial pressure is 43.9 mmHg. BP: / HR: 132 Rhythm: MEASUREMENTS (Male / Female) Normal Values Technical Quality:Technically difficult study 2D ECHO LV Diastolic Diameter PLAX 3.8 cm 4.2 - 5.9 / 3.9 - 5.3 cm LV Systolic Diameter PLAX 3.0 cm IVS Diastolic Thickness 0.8 cm 0.6 - 1.0 / 0.6 - 0.9 cm LVPW Diastolic Thickness 0.8 cm 0.6 - 1.0 / 0.6 - 0.9 cm LV Relative Wall Thickness 0.4 RV Internal Dim ED PLAX 1.6 cm LA Systolic Diameter LX 3.2 cm 3.0 - 4.0 / 2.7 - 3.8 cm DOPPLER AI Peak Velocity 450.0 cm/s AI Peak Gradient 81.0 mmHg AI Pressure Half Time 323.0 ms TR Peak Velocity 291.0 cm/s TR Peak Gradient 33.9 mmHg Right Atrial Pressure 10.0 mmHg Pulmonary Artery Systolic Pressu 43.9 mmHg Right Ventricular Systolic Press 43.9 mmHg FINDINGS LEFT VENTRICLE The left ventricular systolic function is low normal with an estimated ejection fraction in the rang e of 50- 55%. Wall thickness is measured at the upper limits of normal. Normal left ventricular size. MITRAL VALVE Mitral annular calcification is present. Moderate mitral valve regurgitation. AORTIC VALVE Trileaflet aortic valve. Aortic valve sclerosis is present. Vzeh-ji-gblfawxb aortic valve regurgitation. TRICUSPID VALVE Structurally normal tricuspid valve. There is moderate to severe tricuspid valve regurgitation. The estimated pulmonary arterial pressure is 43.9 mmHg. Wil Becker MD, FACC, [facility] (Electronically Signed) Final Date:13 January 2018 15:37
[2018-01-13 17:36] LABS: CREATININE 0.57 MG/DL (0.50-1.00)
[2018-01-13 17:38] LABS: VANCOMYCIN TROUGH 13.7 MCG/ML (5.0-10.0)
[2018-01-13] MEDS ORDERED: METOPROLOL TARTRATE 5 MG/5 ML VIAL IV PUSH SCH (20:00)
[2018-01-14] VITALS (19 sets, daily range): BP systolic 80–115; BP diastolic 51–80; PULSE 93–138; RESP 10–22; TEMP 95.7–98.2; O2SAT 84–100
[2018-01-14] MEDS: DEXT 5%-NACL 0.9% 1000 ML INJ 1,000 ML IV SCH (01:02)
[2018-01-14] MEDS ORDERED: PHARMACY ORDERED LAB ONE (01:45)
[2018-01-14] MEDS: ENOXAPARIN SODIUM 40 MG/0.4 ML SYRINGE SQ SCH (02:55)
[2018-01-14] MEDS: metroNIDAZOLE 500 MG TAB PO SCH ×3 (02:55→18:00)
[2018-01-14] MEDS: VANCOMYCIN 1,000 MG/NS 250 ML IV SCH ×4 (02:55→14:38)
[2018-01-14] MEDS: AZTREONAM INJ 2,000 MG in SODIUM CHLORIDE 0.9% INJ 100 ML IV SCH ×2 (02:56→09:04)
[2018-01-14] MEDS: CHLORHEXIDINE GLUCONATE 2 % 1 PACK (2 CLOTHS) TOP SCH (02:56)
[2018-01-14] MEDS: METOPROLOL TARTRATE 5 MG/5 ML VIAL IV PUSH PRN (03:01)
[2018-01-14] MEDS: MORPHINE SULFATE 4 MG/ML INJ IV PRN ×3 (04:14→23:59)
[2018-01-14] MEDS: INSULIN ASPART SUPPLEMENTAL SCALE SQ SCH ×4 (05:07→23:14)
[2018-01-14 08:55] LABS: AUTOMATED NEUTROPHIL # 39.4 TH/MM3 (1.8-7.7); BASOPHIL # 0.1 TH/MM3 (0-0.2); BASOPHIL % 0.2 % (0.0-2.0); HEMATOCRIT 42.3 % (35.0-46.0); HEMOGLOBIN 13.8 GM/DL (11.6-15.3); LYMPH % 3.3 % (9.0-44.0); LYMPHOCYTE # 1.4 TH/MM3 (1.0-4.8); MEAN CELL VOLUME 109.2 FL (80.0-100.0); MEAN CORPUSCULAR HEMOGLOBIN 35.6 PG (27.0-34.0); MEAN CORPUSCULAR HGB CONC 32.6 % (32.0-36.0); MEAN PLATELET VOLUME 10.7 FL (7.0-11.0); MONO % 3.3 % (0.0-8.0); MONOCYTE # 1.4 TH/MM3 (0-0.9); NEUT % 93.2 % (16.0-70.0); PLATELET COUNT 117 TH/MM3 (150-450); RED BLOOD COUNT 3.87 MIL/MM3 (4.00-5.30); RED CELL DISTRIBUTION WIDTH 19.1 % (11.6-17.2); WHITE BLOOD COUNT 42.3 TH/MM3 (4.0-11.0)
[2018-01-14] MEDS: DOCUSATE SODIUM 50 MG/SENNA 8.6 MG TAB PO SCH ×2 (09:03→22:14)
[2018-01-14] MEDS: PANTOPRAZOLE SODIUM 40 MG VIAL IV PUSH SCH (09:03)
[2018-01-14] MEDS: SPIRONOLACTONE 50 MG TAB PO SCH (09:04)
[2018-01-14] MEDS: SODIUM CHLORIDE 0.9% FLUSH 10 ML FLUSH IV FLUSH SCH ×2 (09:04→22:14)
[2018-01-14 09:18] LABS: BANDS 3 % (0-6); LYMPHOCYTES 1 % (9-44); MONOCYTES 5 % (0-8); NEUTROPHIL # MANUAL DIFF 39.8 TH/MM3 (1.8-7.7); POLYS (SEG NEUTROPHILS) 91 % (16-70)
[2018-01-14 09:19] LABS: TOXIC GRANULATION 2+ (NORMAL); TOXIC VACUOLATION PRESENT (NONE SEEN)
[2018-01-14 10:04] LABS: ALKALINE PHOSPHATASE 348 U/L (45-117); ALT (GPT) 34 U/L (10-53); AST (GOT) 103 U/L (15-37); BICARBONATE 14.7 MEQ/L (21.0-32.0); BLOOD UREA NITROGEN 25 MG/DL (7-18); CHLORIDE 114 MEQ/L (98-107); CREATININE 0.91 MG/DL (0.50-1.00); GLOMERULAR FILTRATION RATE 63 ML/MIN (>89); GLUCOSE,RANDOM 93 MG/DL (74-106); SODIUM (NA) 141 MEQ/L (136-145); TOTAL BILIRUBIN ADULT 4.2 MG/DL (0.2-1.0); TOTAL PROTEIN 4.9 GM/DL (6.4-8.2)
--- NOTE | 2018-01-14 10:09 | HHI.CCPN ---
Subjective Remarks/Hospital Course 01/11: 58-year-old female presents to the emergency department by private transportation the care of her spouse for evaluation of severe abdominal pain. Patient was recently hospitalized 01/02/18 through 01/06/18 for evaluation of liver failure with ascites at [facility]. During her hospitalization she underwent paracentesis of 4-1/2 L of ascitic fluid and was discharged with recommendation for follow-up with GI and had an appointment for next week. She did receive 1 dose of Levaquin during the hospitalization in the ER which was discontinued at the time since her ascites fluid did not suggest peritonitis and her peritoneal fluid cultures did not reveal any growth at 72 hours. No report of fever or chills. Patient previous alcohol consumer but no alcohol since last hospitalization about 10 days back. Patient was discharged on spironolactone metoprolol and pentoxifylline. Patient complains of severe abdominal pain which has worsened since her discharge on 01/06/18. She stated that her belly distention did not really improve significantly following her last paracentesis however her lower extremity swelling has significantly improved. She also has complained of some black stools going on for about 4-5 days. 01/12: Underwent paracentesis with drainage of about 4 L of ascitic fluid yesterday. Still having significant abdominal pain. White count has jumped to 32,000. No diarrhea since yesterday. Patient has been evaluated by GI and general surgery. Still awaiting colonoscopy for further evaluation of colitis. Has not required pressors. 01/13: Resting comfortably. Underwent sigmoidoscopy yesterday and colon was visualized up to the descending colon which did not reveal any evidence of colitis, specimens were taken for biopsy by GI results of which are pending. On gross visualization no evidence of pseudomembrane or ischemia per GI. Patient continues to have abdominal pain and leukocytosis. She is maintaining her blood pressure. Remains on nasal cannula. 01/14: Resting comfortably. Continues to have abdominal distention and pain. Worsening leukocytosis noted. GI general surgery and ID following. We will plan on repeating paracentesis for worsening ascites. Objective Vital Signs Date Time Temp Pulse Resp B/P (MAP) Pulse Ox O2 Delivery O2 Flow Rate FiO2 01/14/18 06:00 103 01/14/18 04:19 12 01/14/18 04:00 98.2 111/80 (90) 98 01/13/18 19:02 Nasal Cannula 2.00 Intake and Output 01/14/18 01/14/18 01/15/18 08:00 16:00 00:00 Intake Total 1350 ml Output Total 350 ml Balance 1000 ml Result Diagram: 01/14/18 0756 01/14/18 0807 Imaging Last Impressions Chest X-Ray 01/11/18124 Signed Impressions: Service Date/Time: Thursday, January 11, 2018 02:09 - CONCLUSION: Subsegmental airspace disease at the lung bases, possibly atelectasis. Dion Pagan MD Abdomen/Pelvis CT 01/11/18124 Signed Impressions: Service Date/Time: Thursday, January 11, 2018 02:47 - CONCLUSION: 1. Diffuse mural thickening of the colon most characteristic of a colitis. Also mild mural edema of small bowel. 2. Liver cirrhosis with moderate to severe ascites and varices. 3. Small hiatal hernia. Tiny renal cysts. Dion Pagan MD Objective Remarks Narrative GENERAL: Very ill-appearing female with jaundice and diffuse ecchymosis in acute discomfort no respiratory distress SKIN: Warm and dry. HEAD: Normocephalic. EYES: No scleral icterus. No injection or drainage. NECK: Supple, trachea midline. No JVD or lymphadenopathy. CARDIOVASCULAR: S1-S2 irregularly irregular, no gallop or murmur. RESPIRATORY: Breath sounds equal bilaterally. No accessory muscle use. No wheezing or crackles GASTROINTESTINAL: Abdomen soft, tender to palpation with voluntary guarding and rebound, distended with fluid wave. Bowel sounds sluggish. MUSCULOSKELETAL: Trace edema lower extremities. A/P Assessment and Plan 58-year-old female with: Abdominal pain Sepsis Hypotension Liver cirrhosis Ascites Suspected peritonitis Colitis Jaundice Melena (at home) Plan: Neuro: Morphine as needed for pain. Follow neuro status. Cardiovascular: Continue IV fluids. Levophed for pressor support if needed. Albumin 25% 50 cc every 6 hourly 24 hours (01/11-01/12). Pulmonary: Supplemental O2 as needed, bronchodilators as needed. GI/liver: GI and general surgery consulted in view of peritoneal signs and colitis on CT. s/p diagnostic and therapeutic paracentesis on 01/11 with drainage of about 4 liters of ascitic fluid. Advance p.o. diet if okay with GI and general surgery. Renal/: IV hydration, strict intake output, monitor and replete electrodes, follow BUN/creatinine. ID: Follow-up blood cultures. F/u ascites fluid for Gram stain and cultures. Empiric antibiotic coverage with IV aztreonam/vancomycin, p.o. Flagyl. Check stool for C. difficile. Sigmoidoscopy did not reveal any evidence of colitis on visualization per GI.. Worsening leukocytosis noted-GI/surgery to decide repeat imaging/intervention. Antibiotics per ID Endocrine: SSI for glycemic control as needed. Heme: Follow CBC and coags. Prophylaxis: Protonix/SCDs/Lovenox GI/general surgery following. Sathya Griffin MD Jan 14, 2018 10:09
--- NOTE | 2018-01-14 11:04 | HHI.GIFU ---
Subjective Remarks Pt resting in bed, at bedside. Abd tender. Extremities cold. (Milly Cline) Objective Vitals I&O Vital Signs Date Time Temp Pulse Resp B/P (MAP) Pulse Ox O2 Delivery O2 Flow Rate FiO2 01/14/18 06:00 103 01/14/18 04:19 12 01/14/18 04:00 98.2 98 14 111/80 (90) 98 01/14/18 04:00 98 01/14/18 02:00 124 01/14/18 00:00 98.0 105 12 115/73 (87) 98 01/14/18 00:00 105 01/13/18 22:00 96 01/13/18 20:00 97.9 146 14 126/77 (93) 98 01/13/18 20:00 146 01/13/18 19:02 97 Nasal Cannula 2.00 01/13/18 19:00 97 Nasal Cannula 2.00 01/13/18 18:00 109 01/13/18 17:00 132 10 117/85 (96) 98 01/13/18 16:30 126 10 121/83 (96) 97 01/13/18 16:00 98.0 134 11 127/74 (91) 97 01/13/18 16:00 108 01/13/18 15:30 130 10 130/74 (92) 96 01/13/18 15:00 128 10 125/77 (93) 97 01/13/18 14:55 98 Nasal Cannula 1.00 01/13/18 14:30 128 16 143/83 (103) 96 01/13/18 14:00 110 10 120/89 (99) 99 01/13/18 14:00 109 01/13/18 13:30 114 12 127/88 (101) 99 01/13/18 13:00 112 11 126/90 (102) 96 01/13/18 12:30 120 17 138/91 (107) 98 01/13/18 12:00 108 01/13/18 12:00 106 11 132/83 (99) 99 01/13/18 11:30 138 13 125/103 (110) 96 I/O 01/13/18 01/13/18 01/13/18 01/14/18 01/14/18 01/14/18 07:00 15:00 23:00 07:00 15:00 23:00 Intake Total 730 ml 120 ml 1350 ml Output Total 300 ml 300 ml 350 ml Balance 430 ml -180 ml 1000 ml Intake Oral 50 ml 120 ml IV Total 680 ml 1350 ml Output Urine Total 300 ml 300 ml 350 ml # Bowel Movements 0 0 Laboratory Laboratory Tests Test 01/13/18 14:18 01/14/18 01:15 01/14/18 07:56 01/14/18 08:07 Creatinine 0.57 0.91 Estimat Glomerular Filtration Rate 109 63 Vancomycin Level Trough 13.7 10.2 White Blood Count 42.3 Red Blood Count 3.87 Hemoglobin 13.8 Hematocrit 42.3 Mean Corpuscular Volume 109.2 Mean Corpuscular Hemoglobin 35.6 Mean Corpuscular Hemoglobin Concent 32.6 Red Cell Distribution Width 19.1 Platelet Count 117 Mean Platelet Volume 10.7 Neutrophils (%) (Auto) 93.2 Lymphocytes (%) (Auto) 3.3 Monocytes (%) (Auto) 3.3 Eosinophils (%) (Auto) 0.0 Basophils (%) (Auto) 0.2 Neutrophils # (Auto) 39.4 Lymphocytes # (Auto) 1.4 Monocytes # (Auto) 1.4 Eosinophils # (Auto) 0.0 Basophils # (Auto) 0.1 CBC Comment AUTO DIFF Differential Total Cells Counted 100 Neutrophils % (Manual) 91 Band Neutrophils % 3 Lymphocytes % 1 Monocytes % 5 Neutrophils # (Manual) 39.8 Differential Comment FINAL DIFF MANUAL Toxic Granulation 2+ Toxic Vacuolation PRESENT Platelet Estimate LOW Platelet Morphology Comment NORMAL Hematology Comments Blood Urea Nitrogen 25 Random Glucose 93 Total Protein 4.9 Albumin 2.0 Calcium Level 8.0 Alkaline Phosphatase 348 Aspartate Amino Transf (AST/SGOT) 103 Alanine Aminotransferase (ALT/SGPT) 34 Total Bilirubin 4.2 Sodium Level 141 Potassium Level 4.5 Chloride Level 114 Carbon Dioxide Level 14.7 Anion Gap 12 Date/Time Source Procedure Growth Status 01/11/18 01:55 Blood Peripheral Aerobic Blood Culture - Preliminary NO GROWTH IN 2 DAYS Resulted 01/11/18 01:55 Blood Peripheral Anaerobic Blood Culture - Preliminary NO GROWTH IN 2 DAYS Resulted 01/11/18 09:30 Fluid Peritoneal Fluid Gram Stain - Final Complete 01/11/18 09:30 Fluid Peritoneal Fluid Body Fluid Culture - Final NO GROWTH IN 72 HRS.--AEROBICALLY OR ... Complete Imaging Last Impressions Chest X-Ray 01/13/18 0600 Signed Impressions: Service Date/Time: Saturday, January 13, 2018 04:28 - CONCLUSION: 1. Mild pulmonary edema pattern with bilateral effusions. Findings have worsened since January 11. Dion Pagan MD Abdomen X-Ray 01/12/18 0000 Signed Impressions: Service Date/Time: Friday, January 12, 2018 08:07 - CONCLUSION: 1. Nonobstructive bowel gas pattern. Gage Anderson MD Gall Bladder Ultrasound 01/11/182007 Signed Impressions: Service Date/Time: Thursday, January 11, 2018 21:10 - CONCLUSION: 1. Cirrhotic liver with portal hypertension and ascites. 2. Wall thickening of the gallbladder, nonspecific but probably related to ascites and chronic liver disease. Negative sonographic Muniz's sign. 3. Nonspecific but not significantly changed prominence of the common bile duct. No stones are seen. Messi Dalal MD Abdomen/Pelvis CT 01/11/18 0125 Signed Impressions: Service Date/Time: Thursday, January 11, 2018 02:47 - CONCLUSION: 1. Diffuse mural thickening of the colon most characteristic of a colitis. Also mild mural edema of small bowel. 2. Liver cirrhosis with moderate to severe ascites and varices. 3. Small hiatal hernia. Tiny renal cysts. Dion Pagan MD Physical Exam HEENT: normocephalic; atraumatic; + icterus CHEST: CTA respirations shallow CARDIAC: tachy irr HR ABDOMEN: firm, distended, exquisitely TTP diffusely, bowel sounds hypoactive EXTREMITIES: , + pitting BLE edema extremities cold SKIN: Normal; no rash; no jaundice. ENT CONSULTANT: lethargic (Milly Cline [employer]) Assessment and Plan Plan ASSESSMENT - abd pain - unclear etiology, ?peritonitis?ischemia recently s/p paracentesis, fluid cx pending CT showing colitis, moderate to severe ascites, varices. pt extremely tender, abd firm and distended GS has been consulted - melanotic stool - reported melena. pt noticed black tarry stool for last 2 weeks - hx cirrhosis, etoh - s/p paracentesis, 2nd in 2 weeks 01/12/18 pt and agreeable to proceed with flex sig today to r/o colitis. pain unchanged. abd firm, distended, tender. 01/13/18 pt seems more comfortable today. WBC trending up. s/p flex sig 01/12 unremarkable, colon does not appear to be source of sx or infection. peritoneal fluid no growth 24h. exudent present, no malignant cells. d/w CCM ? gallbladder LFTs are stable. 01/14/18 WBC continues upward. ?gallbladder. abd distended, very tender. LFTs trending up. poss paracentesis today no surgery per GS. ?cholecystostomy PLAN - CT abd with IV contrast - consider cholecystostomy depending on results CT - await ID f/u - abx per ID - monitor labs - supportive care - no etoh pt seen by myself and DR Telles and this note is on his behalf (Milly Cline) Physician Comments Patient seen and examined Agree with above Continue with current supportive care Monitor labs Case discussed briefly with Dr. Griffin (Julián Telles MD) Milly Cline Jan 14, 2018 11:04 Julián Telles MD Jan 14, 2018 21:13
[2018-01-14] MEDS ORDERED: ALBUMIN 25% INJ 50 ML IV ONE (11:45)
--- NOTE | 2018-01-14 11:48 | PD.PROCEDR ---
Procedure Note Procedure Procedure: Ultrasound-guided abdominal paracentesis Preoperative diagnosis: Ascites, cirrhosis, suspected peritonitis, sepsis Postop diagnosis: Same Informed consent obtained from patient's and documented on chart. Anesthesia used: 1% lidocaine for local infiltration anesthesia Procedure: Ultrasound was used to locate ascites in right lower quadrant After sterile prepping and draping using 1% lidocaine for local infiltration anesthesia, peritoneal cavity was entered using thoracentesis needle and thoracentesis catheter was advanced into the peritoneal cavity as evidenced by return of [] straw-colored cloudy ascites fluid and needle was removed. After connecting tubing, peritoneal fluid was drained using Vacutainer bottles. 3.5 Liters of greenish yellow ascitic fluid was drained. Specimen was collected for lab studies and cultures. Subsequently drainage catheter was removed and dressing was applied to the site. Patient tolerated procedure well with no immediate complications noted. Sathya Griffin MD Jan 14, 2018 11:48
[2018-01-14] MEDS ORDERED: DIATRIZOATE MEGLUM/DIATRIZOATE SOD 9 ML CUP PO ONE (12:15)
[2018-01-14 13:24] LABS: TOTAL PROTEIN,PERITONEAL FLUID 1.1 GM/DL
--- NOTE | 2018-01-14 13:24 | HHI.IDPN ---
Subjective Subjective Remarks Patient is a 58-year-old female with Dx of liver cirrhosis, presented to the hospital C/P worsening diffuse abdominal pain. She has had some vomiting and diarrhea at home. She was recently hospitalized January 02 - January 06 at [facility]. During that time she had liver failure with ascites, and underwent paracentesis with drainage of 4.5 L of fluid. Fluid analysis did not show any evidence of peritonitis. She received Levaquin, and when the peritoneal fluid came back negative she did not get any further antibiotics. She was discharged, and apparently started having severe abdominal pain which worsened. There was no mention of any fever or chills. Evaluation on this admission showed leukocytosis of 11,000. She is afebrile, and tachycardic which has improved. CT of the abdomen and pelvis showed moderate ascites and there is evidence of bowel wall thickening consistent with colitis. Patient underwent paracentesis this morning. She is currently complaining of severe abdominal pain. Infectious disease consultation has been requested to evaluate the patient for sepsis. Notes reviewed Discussed with RN Sd ok BP ok, not on pressors Just had repeat tap - took out 3.5 L Lethargic Firts fluid C/S negative WBC rising Flexible sigmoidoscopy done yesterday, no significant abnormality seen Blood cultures have been negative PD fluid 5000, all neutrophils PD fluid C/S -24 hours No BM recorded Antibiotics Vancomycin IV Azactam IV Flagyl po Diflucan Current Medications Medications (Trade) Dose Ordered Sig/Dmitri Route Start Time Stop Time Status Last Admin Norepinephrine Bitartrate 250 ml @ 7.5 mls/hr TITRATE PRN IV 01/11/18 03:45 (Brethine Inj) 1 mg UNSCH PRN SQ 01/11/18 03:45 (NS Flush) 2 ml UNSCH PRN IV FLUSH 01/11/18 07:00 (NS Flush) 2 ml BID IV FLUSH 01/11/18 09:00 01/14/18 09:04 (Protonix Inj) 40 mg DAILY IV PUSH 01/11/18 09:00 01/14/18 09:03 (Zofran Inj) 4 mg Q6H PRN IV PUSH 01/11/18 07:00 (Reglan Inj) 10 mg Q6H PRN IV PUSH 01/11/18 07:00 (Duoneb Neb) 1 ampule Q2HR NEB PRN INH 01/11/18 07:00 Miscellaneous Information 1 Q361D XX 01/11/18 07:00 01/11/18 07:00 (Chlorhexidine 2% Cloth) 3 pack Taper DAILY@04 TOP 01/12/18 04:00 01/08/19 03:59 01/14/18 02:56 (Chlorhexidine 2% Cloth) 3 pack UNSCH PRN TOP 01/11/18 07:00 (Floresita-Colace) 1 tab BID PO 01/11/18 09:00 01/14/18 09:03 (Milk Of Magnesia Liq) 30 ml Q12H PRN PO 01/11/18 07:00 (Senokot) 17.2 mg Q12H PRN PO 01/11/18 07:00 (Dulcolax Supp) 10 mg DAILY PRN RECTAL 01/11/18 07:00 (Lactulose Liq) 30 ml DAILY PRN PO 01/11/18 07:00 Aztreonam 2000 mg/ Sodium Chloride 100 ml @ 200 mls/hr Q8H IV 01/11/18 10:00 01/14/18 09:04 (Flagyl) 500 mg Q8H PO 01/11/18 10:00 01/14/18 09:03 Pharmacy Profile Note 0 ml @ 0 mls/hr UNSCH OTHER 01/11/18 08:00 (NovoLOG SUPPLEMENTAL SCALE) 1 Q6HR SQ 01/11/18 12:00 (D50w (Vial) Inj) 25 ml UNSCH PRN IV 01/11/18 07:15 (Glucagon Inj) 1 mg UNSCH PRN IM/SQ 01/11/18 07:15 Dextrose/Sodium Chloride 1,000 ml @ 60 mls/hr [id number] IV 01/11/18 09:15 01/14/18 01:02 Potassium Chloride 100 ml @ 50 mls/hr Q2H PRN IV 01/12/18 01:45 Potassium Chloride 100 ml @ 50 mls/hr Q2H PRN IV 01/12/18 01:45 01/12/18 02:13 (K-Lyte Cl Eff) 50 meq UNSCH PRN PO 01/12/18 01:45 Potassium Chloride 100 ml @ 25 mls/hr UNSCH PRN IV 01/12/18 01:45 Potassium Chloride 100 ml @ 50 mls/hr Q2H PRN IV 01/12/18 01:45 01/12/18 02:13 Magnesium Sulfate 4 gm/Sodium Chloride 100 ml @ 50 mls/hr UNSCH PRN IV 01/12/18 01:45 (Mag-Ox) 800 mg UNSCH PRN PO 01/12/18 01:45 Magnesium Sulfate 2 gm/Sodium Chloride 100 ml @ 50 mls/hr UNSCH PRN IV 01/12/18 01:45 (K-Phos) 2,000 mg Q4H PRN PO 01/12/18 01:45 Sodium Phosphate 30 mmol/Sodium Chloride 250 ml @ 42 mls/hr UNSCH PRN IV 01/12/18 01:45 01/12/18 19:57 (K-Phos) 2,000 mg UNSCH PRN PO/TUBE 01/12/18 01:45 Potassium Phosphate 30 mmol/ Sodium Chloride 260 ml @ 42 mls/hr UNSCH PRN IV 01/12/18 01:45 Fluconazole/ Sodium Chloride 200 ml @ 100 mls/hr Q24H IV 01/12/18 11:00 01/13/18 11:00 (Morphine Inj) 4 mg Q2H PRN IV 01/12/18 10:15 01/14/18 04:14 (Lovenox Inj) 40 mg Q24H SQ 01/13/18 03:00 01/14/18 02:55 (Aldactone) 50 mg DAILY PO 01/13/18 09:45 01/14/18 09:04 (Lopressor Inj) 5 mg Q6H PRN IV PUSH 01/14/18 02:15 01/14/18 03:01 Vancomycin HCl 1000 mg/Sodium Chloride 250 ml @ 250 mls/hr Q12H IV 01/14/18 14:00 Miscellaneous Information SPECIFIC LAB TO BE DRAWN:VANCOMYCIN TROUGH DATE TO... ONCE ONCE .XX 01/16/18 01:45 01/16/18 01:46 Lines No evidence of infection Past Medical History Liver cirrhosis Back pain Arthritis Allergies: Coded Allergies: doxycycline (Unverified Allergy, Severe, 01/11/18) minocycline (Unverified Allergy, Severe, 01/11/18) penicillin G (Unverified Allergy, Severe, 01/11/18) tigecycline (Unverified Allergy, Severe, 01/11/18) Objective . Vital Signs Date Time Temp Pulse Resp B/P (MAP) Pulse Ox O2 Delivery O2 Flow Rate FiO2 01/14/18 06:00 103 01/14/18 04:19 12 01/14/18 04:00 98.2 98 14 111/80 (90) 98 01/14/18 04:00 98 01/14/18 02:00 124 01/14/18 00:00 98.0 105 12 115/73 (87) 98 01/14/18 00:00 105 01/13/18 22:00 96 01/13/18 20:00 97.9 146 14 126/77 (93) 98 01/13/18 20:00 146 01/13/18 19:02 97 Nasal Cannula 2.00 01/13/18 19:00 97 Nasal Cannula 2.00 01/13/18 18:00 109 01/13/18 17:00 132 10 117/85 (96) 98 01/13/18 16:30 126 10 121/83 (96) 97 01/13/18 16:00 98.0 134 11 127/74 (91) 97 01/13/18 16:00 108 01/13/18 15:30 130 10 130/74 (92) 96 01/13/18 15:00 128 10 125/77 (93) 97 01/13/18 14:55 98 Nasal Cannula 1.00 01/13/18 14:30 128 16 143/83 (103) 96 01/13/18 14:00 110 10 120/89 (99) 99 01/13/18 14:00 109 01/13/18 13:30 114 12 127/88 (101) 99 . Laboratory Tests Test 01/13/18 03:00 01/14/18 07:56 White Blood Count 37.5 TH/MM3 42.3 TH/MM3 Red Blood Count 2.94 MIL/MM3 3.87 MIL/MM3 Hemoglobin 10.4 GM/DL 13.8 GM/DL Hematocrit 31.4 % 42.3 % Mean Corpuscular Volume 106.8 FL 109.2 FL Mean Corpuscular Hemoglobin 35.2 PG 35.6 PG Mean Corpuscular Hemoglobin Concent 33.0 % 32.6 % Red Cell Distribution Width 18.6 % 19.1 % Platelet Count 157 TH/MM3 117 TH/MM3 Mean Platelet Volume 10.0 FL 10.7 FL Neutrophils (%) (Auto) 94.2 % 93.2 % Lymphocytes (%) (Auto) 3.8 % 3.3 % Monocytes (%) (Auto) 1.8 % 3.3 % Eosinophils (%) (Auto) 0.1 % 0.0 % Basophils (%) (Auto) 0.1 % 0.2 % Neutrophils # (Auto) 35.4 TH/MM3 39.4 TH/MM3 Lymphocytes # (Auto) 1.4 TH/MM3 1.4 TH/MM3 Monocytes # (Auto) 0.7 TH/MM3 1.4 TH/MM3 Eosinophils # (Auto) 0.0 TH/MM3 0.0 TH/MM3 Basophils # (Auto) 0.0 TH/MM3 0.1 TH/MM3 CBC Comment AUTO DIFF AUTO DIFF Differential Total Cells Counted 100 100 Neutrophils % (Manual) 86 % 91 % Band Neutrophils % 8 % 3 % Lymphocytes % 5 % 1 % Neutrophils # (Manual) 35.6 TH/MM3 39.8 TH/MM3 Promyelocytes 1 % Differential Comment FINAL DIFF MANUAL FINAL DIFF MANUAL Toxic Granulation 1+ 2+ Toxic Vacuolation PRESENT PRESENT Dohle Bodies PRESENT Platelet Estimate NORMAL LOW Platelet Morphology Comment NORMAL NORMAL Red Cell Morphology Comment NORMAL Monocytes % 5 % Hematology Comments Laboratory Tests Test 01/12/18 18:46 01/13/18 03:00 01/13/18 14:18 01/14/18 08:07 Blood Urea Nitrogen 18 MG/DL 16 MG/DL 25 MG/DL Creatinine 0.56 MG/DL 0.55 MG/DL 0.57 MG/DL 0.91 MG/DL Random Glucose 159 MG/DL 153 MG/DL 93 MG/DL Total Protein 4.8 GM/DL 4.7 GM/DL 4.9 GM/DL Albumin 2.5 GM/DL 2.3 GM/DL 2.0 GM/DL Calcium Level 7.2 MG/DL 7.2 MG/DL 8.0 MG/DL Alkaline Phosphatase 187 U/L 203 U/L 348 U/L Aspartate Amino Transf (AST/SGOT) 76 U/L 74 U/L 103 U/L Alanine Aminotransferase (ALT/SGPT) 26 U/L 27 U/L 34 U/L Total Bilirubin 3.2 MG/DL 3.1 MG/DL 4.2 MG/DL Sodium Level 138 MEQ/L 141 MEQ/L 141 MEQ/L Potassium Level 3.7 MEQ/L 3.6 MEQ/L 4.5 MEQ/L Chloride Level 110 MEQ/L 113 MEQ/L 114 MEQ/L Carbon Dioxide Level 17.2 MEQ/L 18.6 MEQ/L 14.7 MEQ/L Anion Gap 11 MEQ/L 9 MEQ/L 12 MEQ/L Estimat Glomerular Filtration Rate 111 ML/MIN 114 ML/MIN 109 ML/MIN 63 ML/MIN Lactic Acid Level 3.4 mmol/L Protein Corrected Calcium 8.5 MG/DL 8.5 MG/DL Phosphorus Level 2.4 MG/DL Magnesium Level 1.8 MG/DL Microbiology Date/Time Source Procedure Growth Status 01/14/18 11:15 Fluid Peritoneal Fluid Gram Stain Pending Received 01/14/18 11:15 Fluid Peritoneal Fluid Body Fluid Culture Pending Received Imaging Last Impressions Abdomen X-Ray 01/12/18 0000 Signed Impressions: Service Date/Time: Friday, January 12, 2018 08:07 - CONCLUSION: 1. Nonobstructive bowel gas pattern. Gage Anderson MD Gall Bladder Ultrasound 01/11/182007 Signed Impressions: Service Date/Time: Thursday, January 11, 2018 21:10 - CONCLUSION: 1. Cirrhotic liver with portal hypertension and ascites. 2. Wall thickening of the gallbladder, nonspecific but probably related to ascites and chronic liver disease. Negative sonographic Muniz's sign. 3. Nonspecific but not significantly changed prominence of the common bile duct. No stones are seen. Messi Dalal MD Chest X-Ray 01/11/18124 Signed Impressions: Service Date/Time: Thursday, January 11, 2018 02:09 - CONCLUSION: Subsegmental airspace disease at the lung bases, possibly atelectasis. Dion Pagan MD Abdomen/Pelvis CT 01/11/18124 Signed Impressions: Service Date/Time: Thursday, January 11, 2018 02:47 - CONCLUSION: 1. Diffuse mural thickening of the colon most characteristic of a colitis. Also mild mural edema of small bowel. 2. Liver cirrhosis with moderate to severe ascites and varices. 3. Small hiatal hernia. Tiny renal cysts. Dion Pagan MD Physical Exam GENERAL:Lethargic, NAD SKIN: Cool and dry. Has scattered purpuric areas, has jaundice. HEAD: Atraumatic. Normocephalic. No temporal wasting, or tenderness. EYES: Pale conjunctiva. No petechia or hemorrhage. Pupils equal, round and reactive to light. Extraocular movements full and intact. Has scleral icterus. No injection or drainage. EARS, NOSE AND THROAT: Nose without bleeding or purulent nasal discharge. No sinus tenderness. Dry oral mucosa. NECK: Trachea midline. Supple and not tender, no meningeal signs. Has fatty pad tissue at base of both neck CARDIOVASCULAR: Regular rate and rhythm. No murmurs, rubs or gallops heard RESPIRATORY: Clear to auscultation. Breath sounds equal bilaterally. No rales , wheezing or rhonchi. Decreased breath sounds at bases. ABDOMEN: Distended, diffuse tenderness. Hypoactive bowel sounds. EXTREMITIES: No clubbing, cyanosis. Has bilateral pitting pedal edema. No calf tenderness. . NEUROLOGICAL: Lethargic. PSYCHIATRIC: Unable to assess LINE: No evidence of infection Assessment & Plan Remarks IMPRESSION Severe abdominal pain, ?SBP, has colitis on CT, ?C diff colitis Colitis on CT, had some diarrhea, R/O C diff -Flexible sigmoidoscopy no abnormality seen Liver cirrhosis, with portal HTN, prob ETOH etiology - hepatitis serologies negative Leukocytosis, worsening, RECOMMENDATION Follow C/S Follow CBC Continue Diflucan Change Azactam To meropenem Continue Vanco Continue Flagyl Monitor progress Discussed with RN I will be OOT 01/15-01/17 Other ID MD covering in my absence Rocio Bazzi MD Jan 14, 2018 13:24
[2018-01-14 13:25] LABS: PERITONEAL RBC 1053 /MM3 (0-0)
[2018-01-14 13:26] LABS: PERITONEAL HISTIOCYTES 3 %; PERITONEAL LYMPHS 7 %; PERITONEAL MONOS 5 %; PERITONEAL POLYS(SEGS) 85 %
[2018-01-14] MEDS ORDERED: ASP: Other exception documentation: ( ) PRN (13:30)
[2018-01-14] MEDS ORDERED: PHARMACY INFORMATION XX PRN (13:30)
[2018-01-14] MEDS: MEROPENEM INJ 1,000 MG in SODIUM CHLORIDE 0.9% INJ 100 ML IV SCH ×2 (14:36→23:12)
[2018-01-14] MEDS: FLUCONAZOLE 400 MG PREMIX BAG 200 ML IV SCH (14:39)
[2018-01-14] MEDS ORDERED: SODIUM BICARBONATE 8.4% INJ 150 MEQ in DEXTROSE 5% IN WATE 1000ML INJ 1,000 ML IV SCH ×2 (16:00)
--- NOTE | 2018-01-14 16:29 | HHI.PR ---
cc: Dion Guzman MD Subjective Subjective Notes DAILY PROGRESS NOTE FOR SURGICAL ATTENDING, DR. DION GUZMAN Resting in bed S/p paracentesis ---removed 3.5L Wrapped up in Katelynnvidal lomeli Objective Vitals/I&O Vital Signs Date Time Temp Pulse Resp B/P (MAP) Pulse Ox O2 Delivery O2 Flow Rate FiO2 01/14/18 08:00 Nasal Cannula 2.00 01/14/18 06:00 103 01/14/18 04:19 12 01/14/18 04:00 98.2 111/80 (90) 98 Labs Laboratory Tests Test 01/14/18 01:15 01/14/18 07:56 01/14/18 08:07 01/14/18 11:15 Vancomycin Level Trough 10.2 White Blood Count 42.3 Red Blood Count 3.87 Hemoglobin 13.8 Hematocrit 42.3 Mean Corpuscular Volume 109.2 Mean Corpuscular Hemoglobin 35.6 Mean Corpuscular Hemoglobin Concent 32.6 Red Cell Distribution Width 19.1 Platelet Count 117 Mean Platelet Volume 10.7 Neutrophils (%) (Auto) 93.2 Lymphocytes (%) (Auto) 3.3 Monocytes (%) (Auto) 3.3 Eosinophils (%) (Auto) 0.0 Basophils (%) (Auto) 0.2 Neutrophils # (Auto) 39.4 Lymphocytes # (Auto) 1.4 Monocytes # (Auto) 1.4 Eosinophils # (Auto) 0.0 Basophils # (Auto) 0.1 CBC Comment AUTO DIFF Differential Total Cells Counted 100 Neutrophils % (Manual) 91 Band Neutrophils % 3 Lymphocytes % 1 Monocytes % 5 Neutrophils # (Manual) 39.8 Differential Comment FINAL DIFF MANUAL Toxic Granulation 2+ Toxic Vacuolation PRESENT Platelet Estimate LOW Platelet Morphology Comment NORMAL Hematology Comments Blood Urea Nitrogen 25 Creatinine 0.91 Random Glucose 93 Total Protein 4.9 Albumin 2.0 Calcium Level 8.0 Alkaline Phosphatase 348 Aspartate Amino Transf (AST/SGOT) 103 Alanine Aminotransferase (ALT/SGPT) 34 Total Bilirubin 4.2 Sodium Level 141 Potassium Level 4.5 Chloride Level 114 Carbon Dioxide Level 14.7 Anion Gap 12 Estimat Glomerular Filtration Rate 63 Peritoneal Fluid WBC 4467 Peritoneal Fluid RBC 1053 Peritoneal Fluid Neutrophils 85 Peritoneal Fluid Lymphocytes 7 Peritoneal Fluid Monocytes 5 Peritoneal Fluid Histiocytes 3 Peritoneal Fluid Comment Peritoneal Fluid Total Protein 1.1 Peritoneal Fluid Albumin 0.6 Peritoneal Fluid LDH 256 Peritoneal Fluid Glucose 69 Date/Time Source Procedure Growth Status 01/14/18 14:26 Blood Other Aerobic Blood Culture Pending Received 01/14/18 14:26 Blood Other Anaerobic Blood Culture Pending Received 01/14/18 11:15 Fluid Peritoneal Fluid Gram Stain Pending Received 01/14/18 11:15 Fluid Peritoneal Fluid Body Fluid Culture Pending Received Radiology Last Impressions Abdomen X-Ray 01/12/18 0000 Signed Impressions: Service Date/Time: Friday, January 12, 2018 08:07 - CONCLUSION: 1. Nonobstructive bowel gas pattern. Gage Anderson MD Gall Bladder Ultrasound 01/11/182007 Signed Impressions: Service Date/Time: Thursday, January 11, 2018 21:10 - CONCLUSION: 1. Cirrhotic liver with portal hypertension and ascites. 2. Wall thickening of the gallbladder, nonspecific but probably related to ascites and chronic liver disease. Negative sonographic Muniz's sign. 3. Nonspecific but not significantly changed prominence of the common bile duct. No stones are seen. Messi Dalal MD Chest X-Ray 01/11/18124 Signed Impressions: Service Date/Time: Thursday, January 11, 2018 02:09 - CONCLUSION: Subsegmental airspace disease at the lung bases, possibly atelectasis. Dion Pagan MD Abdomen/Pelvis CT 01/11/18124 Signed Impressions: Service Date/Time: Thursday, January 11, 2018 02:47 - CONCLUSION: 1. Diffuse mural thickening of the colon most characteristic of a colitis. Also mild mural edema of small bowel. 2. Liver cirrhosis with moderate to severe ascites and varices. 3. Small hiatal hernia. Tiny renal cysts. Dion Pagan MD Cardiovascular: Regular Lungs: Clear Abdomen: Other (tender abdomen throughout; s/p paracentesis; leaking clear fluid from needle insertion site ) Extremities: No edema, Other (cold extremities ) A/P Problem List: (1) Colitis ICD Codes: K52.9 - Noninfective gastroenteritis and colitis, unspecified Status: Acute (2) Abdominal pain ICD Codes: R10.9 - Unspecified abdominal pain Status: Acute (3) Cirrhosis ICD Codes: K74.60 - Unspecified cirrhosis of liver Status: Chronic (4) Hepatic insufficiency ICD Codes: K72.90 - Hepatic failure, unspecified without coma Status: Chronic (5) Tachycardia ICD Codes: R00.0 - Tachycardia, unspecified (6) Hyperkalemia ICD Codes: E87.5 - Hyperkalemia (7) Hyponatremia ICD Codes: E87.1 - Hypo-osmolality and hyponatremia (8) Lactic acidosis ICD Codes: E87.2 - Acidosis Status: Acute (9) Peritonitis ICD Codes: K65.9 - Peritonitis, unspecified Status: Acute Assessment and Plan 58-year-old female with ascites; abdominal pain; elevated WBC -Continue to monitor WBC; increased today -S/p paracentesis--- removed 3.5L -Hypothermic -s/p colonoscopy shows no acute findings -ID following -Patient is a high risk for any surgical procedure Attending Statement NOTE FOR SURGICAL ATTENDING, DR. DION GUZMAN Discussed with the display maker reviewed films again with radiology pt going repeat CT scan later today. Discussed with at bedside Patient is very high surgical risk I agree with above assessment and plan. The exam, history, and the medical decision-making described in the above note were completed with the assistance of the mid-level provider. I reviewed and agree with the findings presented. I attest that I had a [id number] encounter with the patient on the same day, and personally performed and documented my assessment and findings in the medical record. The following services were provided during this hospital visit: Chart data review, vital sign assessments/reviewing monitor data Review of consultations notes if present. Medication orders/review and/or management Ordering and/or reviewing lab tests Ordering and/or interpreting/reviewing x-rays and/or diagnostic studies Care of the patient and discussion of the patient with the care team Documentation time To help prompt me to consider important information that might be impacting today's encounter and assessment, Information from prior notes written by myself or my colleagues may have been "brought forward/copy and pasted" into today's note. Problem Qualifiers (1) Abdominal pain: Qualified Codes: R10.84 - Generalized abdominal pain (2) Cirrhosis: Trupti Stevens/[employer] PROGRAMMING DIRECTOR Jan 14, 2018 16:29 Dion Guzman MD Jan 14, 2018 17:07
[2018-01-14 19:53] LABS: ENDOMYSIAL AB SCREEN ND (NEGATIVE); ENDOMYSIAL AB TITER ND (<1:5)
[2018-01-14 22:12] LABS: PROTHROMBIN TIME - PATIENT 20.7 SEC (9.8-11.6)
[2018-01-14] MEDS: SODIUM CHLOR 0.9% 1000 ML INJ 1,000 ML IV SCH ×2 (22:16→22:17)
[2018-01-14 22:35] LABS: ALBUMIN 1.6 GM/DL (3.4-5.0); BICARBONATE 14.9 MEQ/L (21.0-32.0); CALCIUM 7.3 MG/DL (8.5-10.1); CALCIUM-PROTEIN CORRECTED 9.5 MG/DL (8.5-10.1); CREATININE 1.15 MG/DL (0.50-1.00); TOTAL BILIRUBIN ADULT 3.1 MG/DL (0.2-1.0); TOTAL PROTEIN 3.5 GM/DL (6.4-8.2)
[2018-01-14] MEDS ORDERED: TERBUTALINE INJ 1 MG/ML AMP SQ PRN (23:45)
[2018-01-14] MEDS ORDERED: PHENYLEPHRINE HCL 10 MG/ML VIAL ONE (23:47)
[2018-01-14 23:52] LABS: MITOCHONDRIAL ABS LESS THAN 20.0 U (<=20.0)
[2018-01-15] VITALS (8 sets, daily range): BP systolic 82–108; BP diastolic 48–68; PULSE 138–144; RESP 16–18; TEMP 97.9–98.2; O2SAT 90–100
[2018-01-15] MEDS: METOPROLOL TARTRATE 5 MG/5 ML VIAL IV PUSH PRN (00:05)
--- NOTE | 2018-01-15 01:47 | RADRPT ---
EXAM DATE/TIME: 01/15/2018 01:26 [facility] COMPARISON: CHEST SINGLE AP, January 13, 2018, 4:28. INDICATIONS : Confirm central line placement. MEDICAL HISTORY : Cirrhosis. SURGICAL HISTORY : None. ENCOUNTER: Subsequent ACUITY: 1 day PAIN SCORE: Non-responsive. LOCATION: Bilateral chest FINDINGS: Interval placement of right central line with catheter tip projected at the cavoatrial junction. No evidence of pneumothorax. Significant increase in the amount of patchy air space opacities in the ce ntral and upper lungs bilaterally. Persistent consolidation in the left lower lung and loss of delin eation of the left hemidiaphragm. Heart size is stable from prior.. CONCLUSION: 1. Central line in good position. No evidence of pneumothorax. 2. Increasing bilateral mid and upper lung airspace opacities. Anish Duval MD on January 15, 2018 at 1:45 Board Certified Radiologist. This report was verified electronically.
[2018-01-15] MEDS: VANCOMYCIN 1,000 MG/NS 250 ML IV SCH ×2 (02:02)
[2018-01-15] MEDS: ENOXAPARIN SODIUM 40 MG/0.4 ML SYRINGE SQ SCH (02:03)
[2018-01-15] MEDS: CHLORHEXIDINE GLUCONATE 2 % 1 PACK (2 CLOTHS) TOP SCH (02:03)
[2018-01-15] MEDS: metroNIDAZOLE 500 MG TAB PO SCH (02:03)
[2018-01-15] MEDS: MORPHINE SULFATE 4 MG/ML INJ IV PRN (02:39)
[2018-01-15] MEDS ORDERED: MIDAZOLAM HCL 5 MG/ML VIAL (1 ML) ONE (03:23)
[2018-01-15] MEDS ORDERED: SUCCINYLCHOLINE CHLORIDE 200 MG/10 ML VIAL ONE (03:24)
[2018-01-15] MEDS ORDERED: PROPOFOL 1000 MG/100 ML INJ 100 ML IV PRN (03:30)
[2018-01-15] MEDS ORDERED: MIDAZOLAM HCL 5 MG/ML VIAL (1 ML) IV ONE (03:30)
[2018-01-15] MEDS ORDERED: SUCCINYLCHOLINE CHLORIDE 200 MG/10 ML VIAL IV PUSH ONE (03:45)
[2018-01-15] MEDS: PHENYLEPHRINE 40 MG in D5W 500 ML IV PRN ×3 (04:14)
--- NOTE | 2018-01-15 05:51 | RADRPT ---
EXAM DATE/TIME: 01/15/2018 03:54 [facility] COMPARISON: CHEST SINGLE AP, January 15, 2018, 1:26. INDICATIONS : ETT Tube placement. MEDICAL HISTORY : Cirrhosis. SURGICAL HISTORY : None. ENCOUNTER: Subsequent ACUITY: 1 day PAIN SCORE: Non-responsive. LOCATION: Bilateral chest FINDINGS: Interval placement of ET tube with tip 1.5 cm above the zaheer. Gastric tube has been placed it floresita erses the [id number]. Right internal jugular catheter tip projects over the cavoatrial junction. Patchy areas of partially consolidated infiltrate in the central lungs, left upper lung, and left lo wer lung, similar to prior. CONCLUSION: 1. ET tube tip 1.5 cm above the zaheer and needs to be withdrawn 1 cm. 2. Stable bilateral partially consolidated infiltrates. Anish Duval MD on January 15, 2018 at 5:48 Board Certified Radiologist. This report was verified electronically.
[2018-01-15] MEDS: INSULIN ASPART SUPPLEMENTAL SCALE SQ SCH (06:00)
[2018-01-15 06:04] LABS: AUTOMATED NEUTROPHIL # 19.4 TH/MM3 (1.8-7.7); BASOPHIL % 0.1 % (0.0-2.0); EOSINOPHIL % 0.1 % (0.0-4.0); HEMATOCRIT 35.4 % (35.0-46.0); HEMOGLOBIN 11.5 GM/DL (11.6-15.3); LYMPH % 4.8 % (9.0-44.0); MEAN CELL VOLUME 110.7 FL (80.0-100.0); MEAN CORPUSCULAR HEMOGLOBIN 35.9 PG (27.0-34.0); MEAN CORPUSCULAR HGB CONC 32.4 % (32.0-36.0); MEAN PLATELET VOLUME 11.6 FL (7.0-11.0); MONO % 2.2 % (0.0-8.0); MONOCYTE # 0.5 TH/MM3 (0-0.9); NEUT % 92.8 % (16.0-70.0); PLATELET COUNT 136 TH/MM3 (150-450); WHITE BLOOD COUNT 20.9 TH/MM3 (4.0-11.0)
[2018-01-15 06:33] LABS: ALBUMIN 1.4 GM/DL (3.4-5.0); BICARBONATE 13.6 MEQ/L (21.0-32.0); CALCIUM 6.8 MG/DL (8.5-10.1); CREATININE 1.34 MG/DL (0.50-1.00); TOTAL BILIRUBIN ADULT 2.9 MG/DL (0.2-1.0); TOTAL PROTEIN 3.3 GM/DL (6.4-8.2)
[2018-01-15] MEDS: MEROPENEM INJ 1,000 MG in SODIUM CHLORIDE 0.9% INJ 100 ML IV SCH (06:38)
[2018-01-15] MEDS ORDERED: SODIUM BICARBONATE 8.4% INJ 150 MEQ in DEXTROSE 5% IN WATE 1000ML INJ 1,000 ML IV SCH ×2 (07:00)
[2018-01-15 07:23] LABS: BANDS 17 % (0-6); LYMPHOCYTES 3 % (9-44); METAMYELOCYTES 1 % (0-1); MONOCYTES 2 % (0-8); MYELOCYTES 1 % (0-0); NEUTROPHIL # MANUAL DIFF 19.9 TH/MM3 (1.8-7.7); POLYS (SEG NEUTROPHILS) 76 % (16-70); TOXIC GRANULATION 1+ (NORMAL)
[2018-01-15 07:24] LABS: BURR CELLS 1+ (NORMAL)
[2018-01-15] MEDS ORDERED: CHLORHEXIDINE 0.12% (ORAL KIT) 15 ML CUP MT SCH (08:00)
[2018-01-15] MEDS ORDERED: SODIUM BICARBONATE 8.4% INJ 50 MEQ/50 ML SYR ONE (08:19)
--- NOTE | 2018-01-15 08:30 | RADRPT ---
EXAM DATE/TIME: 01/15/2018 07:49 [facility] COMPARISON: CHEST SINGLE AP, January 15, 2018, 1:26. CHEST SINGLE AP, January 13, 2018, 4:28. CT ABDOMEN & PELVIS W CONTRAST, January 11, 2018, 2:47. CHEST SINGLE AP, January 15, 2018, 3:54. INDICATIONS : Post orogastric and endotracheal tube placement. MEDICAL HISTORY : Cirrhosis. SURGICAL HISTORY : None. ENCOUNTER: Subsequent ACUITY: 4 - 6 days PAIN SCORE: Non-responsive. LOCATION: Bilateral chest FINDINGS: The endotracheal tube has its tip 2 cm above the zaheer. The orogastric tube has its tip coiled in th e stomach. A right internal jugular central line has tip in the right atrium. There is no pneumothora x. Persistent severe diffuse bilateral pulmonary infiltrates are noted. The heart is stable. There is air beneath the right hemidiaphragm raising possibility of free intraperitoneal air or interposed jennifer wel loop. Clinical correlation is recommended to rule out acute abdomen. CT of the abdomen would be h elpful to make this differentiation. CONCLUSION: 1. Air beneath the right hemidiaphragm raising the possibility of free intraperitoneal air or interpo sed bowel loop. Clinical correlation is recommended to rule out acute abdomen. CT of the abdomen woul d be helpful to make this differentiation. 2. Persistent severe diffuse bilateral pulmonary infiltrates. 3. Multiple tubes and lines are in good positions. Olivier Torres MD on January 15, 2018 at 8:24 Board Certified Radiologist. This report was verified electronically.
[2018-01-15] MEDS ORDERED: VASOPRESSIN INJ 40 UNITS in DEXTROSE 5% IN WATER 100ML INJ 98 ML IV SCH ×4 (08:43→09:30)
[2018-01-15] MEDS ORDERED: SODIUM BICARBONATE 8.4% INJ 50 MEQ/50 ML SYR IV PUSH ONE (08:45)
--- NOTE | 2018-01-15 09:06 | HHI.CCPN ---
Subjective Remarks/Hospital Course 01/11: 58-year-old female presents to the emergency department by private transportation the care of her spouse for evaluation of severe abdominal pain. Patient was recently hospitalized 01/02/18 through 01/06/18 for evaluation of liver failure with ascites at [place]. During her hospitalization she underwent paracentesis of 4-1/2 L of ascitic fluid and was discharged with recommendation for follow-up with GI and had an appointment for next week. She did receive 1 dose of Levaquin during the hospitalization in the ER which was discontinued at the time since her ascites fluid did not suggest peritonitis and her peritoneal fluid cultures did not reveal any growth at 72 hours. No report of fever or chills. Patient previous alcohol consumer but no alcohol since last hospitalization about 10 days back. Patient was discharged on spironolactone metoprolol and pentoxifylline. Patient complains of severe abdominal pain which has worsened since her discharge on 01/06/18. She stated that her belly distention did not really improve significantly following her last paracentesis however her lower extremity swelling has significantly improved. She also has complained of some black stools going on for about 4-5 days. 01/12: Underwent paracentesis with drainage of about 4 L of ascitic fluid yesterday. Still having significant abdominal pain. White count has jumped to 32,000. No diarrhea since yesterday. Patient has been evaluated by GI and general surgery. Still awaiting colonoscopy for further evaluation of colitis. Has not required pressors. 01/13: Resting comfortably. Underwent sigmoidoscopy yesterday and colon was visualized up to the descending colon which did not reveal any evidence of colitis, specimens were taken for biopsy by GI results of which are pending. On gross visualization no evidence of pseudomembrane or ischemia per GI. Patient continues to have abdominal pain and leukocytosis. She is maintaining her blood pressure. Remains on nasal cannula. 01/14: Resting comfortably. Continues to have abdominal distention and pain. Worsening leukocytosis noted. GI general surgery and ID following. We will plan on repeating paracentesis for worsening ascites. 01/15: Patient decompensated over the night, became more altered, hypotensive and hypoxic. She was intubated and a central line was placed and she was started on vasopressors. Currently patient on a PEEP of 5 and an FiO2 of 0.8, on norepinephrine at 8 and phenylephrine at 250. Patient also with worsening renal function, oliguric. Remains hypothermic on bear hugger. Unresponsive, not on any sedation. Morning chest x-ray reviewed, developing diffuse bilateral infiltrates/early ARDS, ?free intraperitoneal air under the right diaphragm. Objective Vital Signs Date Time Temp Pulse Resp B/P (MAP) Pulse Ox O2 Delivery O2 Flow Rate FiO2 01/15/18 06:00 138 01/15/18 04:15 94/48 01/15/18 04:00 97.9 16 100 01/15/18 03:30 100 01/15/18 00:25 Non-Rebreather 15.00 Intake and Output 01/15/18 01/15/18 01/16/18 08:00 16:00 00:00 Intake Total 100 ml Output Total 150 ml Balance -50 ml Result Diagram: 01/15/18 0430 01/15/18 0430 Other Results Laboratory Tests Test 01/14/18 19:00 01/15/18 04:44 Blood Gas Puncture Site LT RADIAL LT RADIAL Blood Gas Patient Temperature 98.6 98.6 Blood Gas HCO3 13 mmol/L (22-26) 13 mmol/L (22-26) Blood Gas Base Excess -12.1 mmol/L (-2-2) -14.5 mmol/L (-2-2) Blood Gas Oxygen Saturation 92 % (90-100) 94 % (90-100) Arterial Blood pH 7.34 (7.380-7.420) 7.15 (7.380-7.420) Arterial Blood Partial Pressure CO2 24 mmHg (38-42) 39 mmHg (38-42) Arterial Blood Partial Pressure O2 74 mmHg (61-120) 98 mmHg (61-120) Arterial Blood Oxygen Content 15.3 Vol % (12.0-20.0) 14.9 Vol % (12.0-20.0) Arterial Blood Carboxyhemoglobin 1.0 % (0-4) 0.5 % (0-4) Arterial Blood Methemoglobin 1.2 % (0-2) 1.3 % (0-2) Blood Gas Hemoglobin 11.8 G/DL (12.0-16.0) 11.3 G/DL (12.0-16.0) Oxygen Delivery Device Non-Rebreathing Mask VENTILATOR Blood Gas Liter Flow 15 L/M Blood Gas Inspired Oxygen 100 % 100 % Blood Gas Ventilator Setting SEE COMMENTS Imaging Last 24 hours Impressions Chest X-Ray 01/15/18 Signed Impressions: Service Date/Time: Monday, January 15, 2018 07:49 - CONCLUSION: 1. Air beneath the right hemidiaphragm raising the possibility of free intraperitoneal air or interposed bowel loop. Clinical correlation is recommended to rule out acute abdomen. CT of the abdomen would be helpful to make this differentiation. 2. Persistent severe diffuse bilateral pulmonary infiltrates. 3. Multiple tubes and lines are in good positions. Olivier Torres MD Chest X-Ray 01/15/18 Signed Impressions: Service Date/Time: Monday, January 15, 2018 03:54 - CONCLUSION: 1. ET tube tip 1.5 cm above the zaheer and needs to be withdrawn 1 cm. 2. Stable bilateral partially consolidated infiltrates. Anish Duval MD Chest X-Ray 01/15/18 Signed Impressions: Service Date/Time: Monday, January 15, 2018 01:26 - CONCLUSION: 1. Central line in good position. No evidence of pneumothorax. 2. Increasing bilateral mid and upper lung airspace opacities. Anish Duval MD Last Impressions Chest X-Ray 01/11/18124 Signed Impressions: Service Date/Time: Thursday, January 11, 2018 02:09 - CONCLUSION: Subsegmental airspace disease at the lung bases, possibly atelectasis. Dion Pagan MD Abdomen/Pelvis CT 01/11/18124 Signed Impressions: Service Date/Time: Thursday, January 11, 2018 02:47 - CONCLUSION: 1. Diffuse mural thickening of the colon most characteristic of a colitis. Also mild mural edema of small bowel. 2. Liver cirrhosis with moderate to severe ascites and varices. 3. Small hiatal hernia. Tiny renal cysts. Dion Pagan MD Objective Remarks GENERAL: Middle-aged lady, intubated, unresponsive, on no sedation, very ill- appearing. SKIN: Warm and dry. HEAD: Normocephalic. EYES: Pupils are dilated, sluggishly reactive. Sclera anicteric. No injection or drainage. NECK: Supple, trachea midline. No JVD or lymphadenopathy. Orally intubated. Right IJ central line -site is clean. CARDIOVASCULAR: S1-S2 irregularly irregular, no gallop or murmur. Tachycardic. RESPIRATORY: Coarse breath sounds bilateral, diffusely. No wheezing. GASTROINTESTINAL: Abdomen soft, distended with fluid wave. Bowel sounds hypoactive. Unable to appreciate tenderness since patient is unresponsive. MUSCULOSKELETAL: 1+ pitting edema lower extremities. NEURO: Intubated, on no sedation, unresponsive. She does not open eyes to voice stimuli, she does not follow commands, no grimace or withdrawal to pain. Pupils are equal dilated and sluggishly reactive. A/P Assessment and Plan 1. Circulatory shock, likely septic, currently requiring 2 vasopressors 2. Acute hypoxic respiratory failure/ARDS 3. Oliguric FERMIN with concern for hepatorenal syndrome 4. Liver cirrhosis 5. Suspected peritonitis 6. Based on the morning x-ray possibility of perforation 7. Acute encephalopathy 8. Lactic/metabolic acidosis 9. Possible colitis 1. Continue PRVC, vent settings readjusted, respiratory rate increased to 24, TI decreased to 0.9, PEEP increased to 10. Patient is synchronized with the vent, PIP is 24, no auto PEEP 2. Vent bundle and bronchodilators 3. Add vasopressin and try to wean off phenylephrine 4. Add stress dose steroids 5. 2 Amps bicarb slow push and increase drip to 125 mL's per hour 6. Discussed with surgery SURVEILLANCE SYSTEM MONITOR she will talk to be Dr. Guzman regarding the x- ray findings 7. Continue antibiotics per ID 8. Place arterial line. ABG at 10 AM 9. Check ammonia and coags 10. Check CVP, patient is volume overload but might be intravascularly depleted 11. GI prophylaxis 12. DVT prophylaxis No family present at bedside. I spent 35 minutes of critical care time, excluding procedures, managing shock, severe acidosis, ventilator, reviewing data and ordering labs, discussing with surgery and nursing staff. Patient is critically ill with multisystem organ failure, ARDS, shock, liver failure and she is at very high risk for further deterioration and . Froylan Marroquin MD Jan 15, 2018 09:06
--- NOTE | 2018-01-15 09:49 | HHI.PR ---
cc: Dion Guzman MD Subjective Subjective Notes DAILY PROGRESS NOTE FOR SURGICAL ATTENDING, DR. DION GUZMAN Decompensated overnight---Intubated/Sedated on multiple pressors Free air found on XR today; unable to travel for [place] due to patient's current condition Objective Vitals/I&O Vital Signs Date Time Temp Pulse Resp B/P (MAP) Pulse Ox O2 Delivery O2 Flow Rate FiO2 01/15/18 08:00 100 80 01/15/18 06:00 138 01/15/18 04:15 94/48 01/15/18 04:00 97.9 16 01/15/18 00:25 Non-Rebreather 15.00 Labs Laboratory Tests Test 01/14/18 11:15 01/14/18 19:00 01/14/18 21:45 01/15/18 04:30 Peritoneal Fluid WBC 4467 Peritoneal Fluid RBC 1053 Peritoneal Fluid Neutrophils 85 Peritoneal Fluid Lymphocytes 7 Peritoneal Fluid Monocytes 5 Peritoneal Fluid Histiocytes 3 Peritoneal Fluid Comment Peritoneal Fluid Total Protein 1.1 Peritoneal Fluid Albumin 0.6 Peritoneal Fluid LDH 256 Peritoneal Fluid Glucose 69 Blood Gas Puncture Site LT RADIAL Blood Gas Patient Temperature 98.6 Blood Gas HCO3 13 Blood Gas Base Excess -12.1 Blood Gas Oxygen Saturation 92 Arterial Blood pH 7.34 Arterial Blood Partial Pressure CO2 24 Arterial Blood Partial Pressure O2 74 Arterial Blood Oxygen Content 15.3 Arterial Blood Carboxyhemoglobin 1.0 Arterial Blood Methemoglobin 1.2 Blood Gas Hemoglobin 11.8 Oxygen Delivery Device Non-Rebreathing Mask Blood Gas Liter Flow 15 Blood Gas Inspired Oxygen 100 Prothrombin Time 20.7 Prothromb Time International Ratio 2.0 Blood Urea Nitrogen 33 32 Creatinine 1.15 1.34 Random Glucose 118 179 Total Protein 3.5 3.3 Albumin 1.6 1.4 Calcium Level 7.3 6.8 Alkaline Phosphatase 232 231 Aspartate Amino Transf (AST/SGOT) 72 97 Alanine Aminotransferase (ALT/SGPT) 21 24 Total Bilirubin 3.1 2.9 Sodium Level 145 142 Potassium Level 3.9 3.8 Chloride Level 118 116 Carbon Dioxide Level 14.9 13.6 Anion Gap 12 12 Estimat Glomerular Filtration Rate 48 41 Lactic Acid Level 5.4 Protein Corrected Calcium 9.5 9.0 White Blood Count 20.9 Red Blood Count 3.20 Hemoglobin 11.5 Hematocrit 35.4 Mean Corpuscular Volume 110.7 Mean Corpuscular Hemoglobin 35.9 Mean Corpuscular Hemoglobin Concent 32.4 Red Cell Distribution Width 19.0 Platelet Count 136 Mean Platelet Volume 11.6 Neutrophils (%) (Auto) 92.8 Lymphocytes (%) (Auto) 4.8 Monocytes (%) (Auto) 2.2 Eosinophils (%) (Auto) 0.1 Basophils (%) (Auto) 0.1 Neutrophils # (Auto) 19.4 Lymphocytes # (Auto) 1.0 Monocytes # (Auto) 0.5 Eosinophils # (Auto) 0.0 Basophils # (Auto) 0.0 CBC Comment AUTO DIFF Differential Total Cells Counted 100 Neutrophils % (Manual) 76 Band Neutrophils % 17 Lymphocytes % 3 Monocytes % 2 Neutrophils # (Manual) 19.9 Metamyelocytes 1 Myelocytes 1 Differential Comment FINAL DIFF MANUAL Toxic Granulation 1+ Platelet Estimate LOW Platelet Morphology Comment ENLARGED [place] Cells 1+ Test 01/15/18 04:44 Blood Gas Puncture Site LT RADIAL Blood Gas Patient Temperature 98.6 Blood Gas HCO3 13 Blood Gas Base Excess -14.5 Blood Gas Oxygen Saturation 94 Arterial Blood pH 7.15 Arterial Blood Partial Pressure CO2 39 Arterial Blood Partial Pressure O2 98 Arterial Blood Oxygen Content 14.9 Arterial Blood Carboxyhemoglobin 0.5 Arterial Blood Methemoglobin 1.3 Blood Gas Hemoglobin 11.3 Oxygen Delivery Device VENTILATOR Blood Gas Ventilator Setting SEE COMMENTS Blood Gas Inspired Oxygen 100 Date/Time Source Procedure Growth Status 01/14/18 14:26 Blood Other Aerobic Blood Culture Pending Received 01/14/18 14:26 Blood Other Anaerobic Blood Culture Pending Received 01/14/18 11:15 Fluid Peritoneal Fluid Gram Stain - Final Resulted 01/14/18 11:15 Fluid Peritoneal Fluid Body Fluid Culture Pending Resulted Radiology Last Impressions Abdomen X-Ray 01/12/18 0000 Signed Impressions: Service Date/Time: Friday, January 12, 2018 08:07 - CONCLUSION: 1. Nonobstructive bowel gas pattern. Gaeg Anderson MD Gall Bladder Ultrasound 01/11/182007 Signed Impressions: Service Date/Time: Thursday, January 11, 2018 21:10 - CONCLUSION: 1. Cirrhotic liver with portal hypertension and ascites. 2. Wall thickening of the gallbladder, nonspecific but probably related to ascites and chronic liver disease. Negative sonographic Muniz's sign. 3. Nonspecific but not significantly changed prominence of the common bile duct. No stones are seen. Messi Dalal MD Chest X-Ray 01/11/18124 Signed Impressions: Service Date/Time: Thursday, January 11, 2018 02:09 - CONCLUSION: Subsegmental airspace disease at the lung bases, possibly atelectasis. Dion Pagan MD Abdomen/Pelvis CT 01/11/18124 Signed Impressions: Service Date/Time: Thursday, January 11, 2018 02:47 - CONCLUSION: 1. Diffuse mural thickening of the colon most characteristic of a colitis. Also mild mural edema of small bowel. 2. Liver cirrhosis with moderate to severe ascites and varices. 3. Small hiatal hernia. Tiny renal cysts. Dion Pagan MD Cardiovascular: Regular Lungs: Clear Abdomen: Other (distended; grimaces with palpation ) Extremities: Other (diffuse generalized edema; minimal urine in Jiang with dark urine; ) A/P Problem List: (1) Colitis ICD Codes: K52.9 - Noninfective gastroenteritis and colitis, unspecified Status: Acute (2) Abdominal pain ICD Codes: R10.9 - Unspecified abdominal pain Status: Acute (3) Cirrhosis ICD Codes: K74.60 - Unspecified cirrhosis of liver Status: Chronic (4) Hepatic insufficiency ICD Codes: K72.90 - Hepatic failure, unspecified without coma Status: Chronic (5) Tachycardia ICD Codes: R00.0 - Tachycardia, unspecified (6) Hyperkalemia ICD Codes: E87.5 - Hyperkalemia (7) Hyponatremia ICD Codes: E87.1 - Hypo-osmolality and hyponatremia (8) Lactic acidosis ICD Codes: E87.2 - Acidosis Status: Acute (9) Peritonitis ICD Codes: K65.9 - Peritonitis, unspecified Status: Acute Assessment and Plan 58-year-old female with ascites; abdominal pain; elevated WBC -STAT KUB at bedside -Patient too unstable for travel to [place] -Patient now intubated on multiple pressor medication with SBP in the 80s -Discussed with Don at bedside--- options are for OR emergently or transition to comfort care - expressed that patient "would not want to live on machines." He also expressed that "if it is unlikely she would survive surgery I would not want to put her through that." -Discussed patient is a high risk for mortality for any surgical procedure and recovery -Patient is in multisystem organ failure -I have asked Lisa BAJWA with Palliative Care to discuss with about transition to comfort care ---she will be up to speak to -Discussed with Dr. Marroquin at bedside Problem Qualifiers (1) Abdominal pain: Qualified Codes: R10.84 - Generalized abdominal pain (2) Cirrhosis: Trupti StevensP/[employer] Jan 15, 2018 09:49 Dion Guzman MD Jan 15, 2018 14:31
--- NOTE | 2018-01-15 10:04 | RADRPT ---
EXAM DATE/TIME: 01/15/2018 09:23 [place] COMPARISON: ABDOMEN KUB ONLY, January 12, 2018, 8:07. INDICATIONS : Evaluate for free air as indicated during previous chest image. MEDICAL HISTORY : Cirrhosis. SURGICAL HISTORY : None. ENCOUNTER: Subsequent ACUITY: 4 - 6 days PAIN SCORE: 10/10 LOCATION: Abdomen. FINDINGS: Supine view of the abdomen was performed. The abdominal bowel gas pattern is normal. No abnormal ma sses, calcifications, or organomegaly is seen. The osseous structures are unremarkable. CONCLUSION: Normal examination. Catheter within the bladder. No evidence of free air on the 2 films. Mao Sheridan MD on January 15, 2018 at 10:01 Board Certified Radiologist. This report was verified electronically.
--- NOTE | 2018-01-15 10:32 | PD.CONS ---
Consult Service Palliative Care . Consult Requested By Dr. Griffin . Primary Care Physician Rocael De La Torre MD (Paul) . Reason for Consultation a. To assist with evaluation and management of symptoms including: dyspnea, pain. b. To assist medical decision maker(s) with: better understanding of current medical conditions; weighing benefits/burdens of medical treatment options; making medical treatment decisions. . HPI History of Present Illness Mrs. Oneill is a 58 year old female with past medical history of cirrhosis with ascites, liver failure, alcohol use and irregular heart beat. This is her 2nd acute care hospitalization this month. She was admitted 01/02/18 - 01/06/18 for liver cirrhosis and sepsis, she had ascites s/p paracentesis. Patient presented to [facility] emergency department on 01/11/18 with worsening abdominal pain and distention that reportedly became severe since her recent discharge. No alcohol use since last admission. She also reported black stools for 4-5 days prior to presentation. Initial evaluation revealed: * VS: temp 97.4, pulse 100, resp 20, BP 87/60. * WBC 11.5, hemoglobin 13, hematocrit 38.3, platelets 246 * PT 15.2, INR 1.5, PTT 30.6 * Lactic acid 2.5 * Total protein 5.8, albumin 1.8 * T. Bili 5.1, AST 147, ALT 47, alk phos 356 * Ammonia 16 * Lipase 238 * sodium 127, potassium 3.7, GFR 67, BUN 28, creatinine 0.87 * CXR - subsegmental airspace disease at lung bases. * CT abd/pelvis - diffuse mural thickening of the colon, likely colitis, mural edema of small bowel, liver cirrhosis with moderate to severe ascites and varices, small hiatal hernia, tiny renal cysts. * EKG - sinus rhythm with ectopy and poor r wave progression anteroseptally. Patient was admitted with cirrhosis, hypotension, lactic acidosis, colitis and possible peritonitis. Gastroenterology was consulted, patient underwent flexible sigmoidoscopy with biopsy, pathology was without significant histopathology. Abdominal pain was not improving. Overnight the patient became more altered, hypotensive and hypoxic. She was intubated and started on vasopressor support. She has worsening renal function, oliguric. Hypothermic on Katelynn hugger. Unresponsive off all sedation. Chest xray revealed diffuse bilateral infiltrates with early ARDS, questionable intraperitoneal free air under right diaphragm. General surgery met with spouse to consider exploratory laparotomy, they agreed she may not survive surgery given significant worsening of clinical condition. Palliative care was consulted to assist with further clarification of medical treatment goals. Patient does not appear painful, she is unresponsive off all sedation. She appears to be agonally breathing on mech vent. Met with spouse/ HCP, Don he is certain patient would elect transition to comfort measures. He indicates she has made him "promise he would never keep her alive by machines." He has elected not to proceed with surgery and desires transition to comfort with withdrawal of life support. . Function/Cognitive Trajectory She has had some recent decline. She recently cancelled a trip they had planned to go to [place] because she did not want to go out of the country as she felt something was wrong. She did not want to get sick out of the country. . Review of Systems ROS Limitations: Intubated, Unresponsive Constitutional: COMPLAINS OF: Fatigue, Weight loss (cachexia), Change in appetite (decreased), Generalized weakness Respiratory: COMPLAINS OF: Shortness of breath Cardiovascular: COMPLAINS OF: Dyspnea on Exertion, Lower Extremity Edema Gastrointestinal: COMPLAINS OF: Abdominal pain, Black stools, Anorexia, Bloating Genitourinary: DENIES: Abnormal vaginal bleeding, Dysmenorrhea, Dyspareunia, Sexual dysfunction, Urinary frequency, Urinary incontinence, Urgency, Hematuria , Dysuria, Nocturia, Vaginal discharge, Hesitancy, Dribbling, Decreased stream Musculoskeletal: COMPLAINS OF: Back pain Integumentary: COMPLAINS OF: Abnormal pigmentation (jaundice) Hematologic/Lymphatics: COMPLAINS OF: Bruising Psychiatric: DENIES: Anxiety, Confusion, Mood changes, Depression, Hallucinations, Agitation, Suicidal Ideation, Homicidal Ideation, Delusions, Anhedonia Other ROS: ROS per spouse report, pt unresponsive. . Past Family Social History Coded Allergies: doxycycline (Unverified Allergy, Severe, 01/11/18) minocycline (Unverified Allergy, Severe, 01/11/18) penicillin G (Unverified Allergy, Severe, 01/11/18) tigecycline (Unverified Allergy, Severe, 01/11/18) Past Medical History Cirrhosis Liver failure Alcohol use . Past Surgical History back surgery arm surgery paracentesis . Reported Medications Reported Meds & Active Scripts Active Pentoxifylline ER (Pentoxifylline) 400 Mg Tab 400 Mg PO BID Furosemide 20 Mg Tab 20 Mg PO BID@ Spironolactone 50 Mg Tab 50 Mg PO DAILY Reported Metoprolol Succinate ER 24 HR (Metoprolol Succinate) 25 Mg Tab 25 Mg PO DAILY . Current Medications Medications (Trade) Dose Ordered Sig/Dmitri Route Start Time Stop Time Status Last Admin Norepinephrine Bitartrate 250 ml @ 7.5 mls/hr TITRATE PRN IV 01/11/18 03:45 01/15/18 04:15 (Brethine Inj) 1 mg UNSCH PRN SQ 01/11/18 03:45 (NS Flush) 2 ml UNSCH PRN IV FLUSH 01/11/18 07:00 (NS Flush) 2 ml BID IV FLUSH 01/11/18 09:00 01/14/18 22:14 (Protonix Inj) 40 mg DAILY IV PUSH 01/11/18 09:00 01/14/18 09:03 (Zofran Inj) 4 mg Q6H PRN IV PUSH 01/11/18 07:00 (Reglan Inj) 10 mg Q6H PRN IV PUSH 01/11/18 07:00 (Duoneb Neb) 1 ampule Q2HR NEB PRN INH 01/11/18 07:00 Miscellaneous Information 1 Q361D XX 01/11/18 07:00 01/11/18 07:00 (Chlorhexidine 2% Cloth) 3 pack Taper DAILY@04 TOP 01/12/18 04:00 01/08/19 03:59 01/15/18 02:03 (Chlorhexidine 2% Cloth) 3 pack UNSCH PRN TOP 01/11/18 07:00 (Floresita-Colace) 1 tab BID PO 01/11/18 09:00 01/14/18 22:14 (Milk Of Magnesia Liq) 30 ml Q12H PRN PO 01/11/18 07:00 (Senokot) 17.2 mg Q12H PRN PO 01/11/18 07:00 (Dulcolax Supp) 10 mg DAILY PRN RECTAL 01/11/18 07:00 (Lactulose Liq) 30 ml DAILY PRN PO 01/11/18 07:00 (Flagyl) 500 mg Q8H PO 01/11/18 10:00 01/15/18 02:03 Pharmacy Profile Note 0 ml @ 0 mls/hr UNSCH OTHER 01/11/18 08:00 (NovoLOG SUPPLEMENTAL SCALE) 1 Q6HR SQ 01/11/18 12:00 (D50w (Vial) Inj) 25 ml UNSCH PRN IV 01/11/18 07:15 (Glucagon Inj) 1 mg UNSCH PRN IM/SQ 01/11/18 07:15 Potassium Chloride 100 ml @ 50 mls/hr Q2H PRN IV 01/12/18 01:45 Potassium Chloride 100 ml @ 50 mls/hr Q2H PRN IV 01/12/18 01:45 01/12/18 02:13 (K-Lyte Cl Eff) 50 meq UNSCH PRN PO 01/12/18 01:45 Potassium Chloride 100 ml @ 25 mls/hr UNSCH PRN IV 01/12/18 01:45 Potassium Chloride 100 ml @ 50 mls/hr Q2H PRN IV 01/12/18 01:45 01/12/18 02:13 Magnesium Sulfate 4 gm/Sodium Chloride 100 ml @ 50 mls/hr UNSCH PRN IV 01/12/18 01:45 (Mag-Ox) 800 mg UNSCH PRN PO 01/12/18 01:45 Magnesium Sulfate 2 gm/Sodium Chloride 100 ml @ 50 mls/hr UNSCH PRN IV 01/12/18 01:45 (K-Phos) 2,000 mg Q4H PRN PO 01/12/18 01:45 Sodium Phosphate 30 mmol/Sodium Chloride 250 ml @ 42 mls/hr UNSCH PRN IV 01/12/18 01:45 01/12/18 19:57 (K-Phos) 2,000 mg UNSCH PRN PO/TUBE 01/12/18 01:45 Potassium Phosphate 30 mmol/ Sodium Chloride 260 ml @ 42 mls/hr UNSCH PRN IV 01/12/18 01:45 Fluconazole/ Sodium Chloride 200 ml @ 100 mls/hr Q24H IV 01/12/18 11:00 01/14/18 14:39 (Morphine Inj) 4 mg Q2H PRN IV 01/12/18 10:15 01/15/18 02:39 (Lovenox Inj) 40 mg Q24H SQ 01/13/18 03:00 01/15/18 02:03 (Aldactone) 50 mg DAILY PO 01/13/18 09:45 01/14/18 09:04 Vancomycin HCl 1000 mg/Sodium Chloride 250 ml @ 250 mls/hr Q12H IV 01/14/18 14:00 01/15/18 02:02 Miscellaneous Information SPECIFIC LAB TO BE DRAWN:VANCOMYCIN TROUGH DATE TO... ONCE ONCE .XX 01/16/18 01:45 01/16/18 01:46 (ASP Crit: Other exception documentation) 1 UNSCH X1 PRN .XX 01/14/18 13:30 01/15/18 13:29 ([facility] Information) 1 UNSCH X1 PRN XX 01/14/18 13:30 01/15/18 13:29 Meropenem 1000 mg/ Sodium Chloride 100 ml @ 200 mls/hr Q8H IV 01/14/18 15:00 01/15/18 06:38 Phenylephrine HCl 40 mg/Dextrose 500 ml @ 30 mls/hr TITRATE PRN IV 01/14/18 23:45 01/15/18 04:14 (Brethine Inj) 1 mg UNSCH PRN SQ 01/14/18 23:45 (Peridex 0.12% Liq) 15 ml BID@08,20 MT 01/15/18 08:00 Propofol 100 ml @ 1.755 mls/ hr TITRATE PRN IV 01/15/18 03:30 01/15/18 04:34 Sodium Bicarbonate 150 meq/Dextrose 1,150 ml @ 125 mls/hr Q9H12M IV 01/15/18 07:00 (SoluCORTEF INJ) 50 mg Q6HR IV PUSH 01/15/18 12:00 Vasopressin 40 units/Dextrose 100 ml @ 1.5 mls/hr Q24H IV 01/15/18 09:30 Family History Mother of Alheimer's. Father at 52 of [place]. Brother age 12 after he was hit by a car. . Substance Use Tobacco: former smoker. Alcohol: Quit drinking about 1 month ago. Prescription med abuse: None. Illicits: None. . Psychosocial History From [place]. Moved to [place] in the 's. She has been for 5.5 years, they have been together for 18 years. Did not work. 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 . Spiritual/Cultural Factors [employer]. 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 . Living Will: Never completed Health Care Surrogate: Never completed Durable Power of Metal Fabricator: Never completed Health Care Surrogate(s): Patient is not capacitated to make her own health care decisions, will not regain capacity. According to [place] statutes, health care proxy decision making falls to her spouse, Óscar Oneill. . Today's verbally stated goals: Patient is not capacitated to make her own health care decisions, will not regain capacity. . Family/friends goals: Desires transition to comfort measures with withdrawal of life support. . Ethical and Legal Issues Patient is not capacitated to make her own health care decisions, will not regain capacity. According to [place] statutes, health care proxy decision making falls to her spouse, Óscar Oneill. . Physical Exam Vital Signs Date Time Temp Pulse Resp B/P (MAP) Pulse Ox O2 Delivery O2 Flow Rate FiO2 01/15/18 08:00 100 80 01/15/18 06:00 138 01/15/18 04:15 144 94/48 01/15/18 04:14 141 94/48 01/15/18 04:00 144 01/15/18 04:00 97.9 144 16 82/55 (64) 100 01/15/18 03:30 96 100 01/15/18 02:44 18 01/15/18 02:00 139 01/15/18 00:25 96 Non-Rebreather 15.00 100 01/15/18 00:14 135 88/58 01/15/18 00:00 142 01/15/18 00:00 142 82/56 01/15/18 00:00 98.2 142 18 108/68 (81) 90 01/14/18 22:00 126 01/14/18 20:00 97.8 138 16 80/51 (61) 91 01/14/18 20:00 138 01/14/18 19:00 94 Nasal Cannula 2.00 01/14/18 18:45 132 01/14/18 17:00 96.3 129 16 104/56 (72) 88 01/14/18 17:00 129 01/14/18 16:52 92 Non-Rebreather 15.00 100 01/14/18 16:00 122 01/14/18 16:00 95.7 122 22 01/14/18 15:00 100 17 113/65 (81) 87 01/14/18 15:00 100 01/14/18 14:00 103 01/14/18 14:00 97 15 100/63 (75) 92 01/14/18 13:00 93 12 91/60 (70) 92 01/14/18 13:00 93 01/14/18 12:00 129 15 88/63 (71) 84 01/14/18 12:00 129 01/14/18 11:00 103 22 114/71 (85) 01/14/18 11:00 103 Exam CONSTITUTIONAL/GENERAL: This is a critically ill patient, agonal respiration on vent. TUBES/LINES/DRAINS: ETT, OG, right IJ central line, PIV, coffman, SCDs, Katelynn hugger. SKIN: + jaundice. Ecchymoses on upper extremities. No wounds seen anteriorly. HEAD: Atraumatic. Normocephalic. EYES: Pupils dilated, sluggish. + scleral icterus. ENT: Unable to asses hearing. Throat with tubes. NECK: Trachea midline. CARDIOVASCULAR: Irregularly irregular. Tachycardic. RESPIRATORY/CHEST: Agonal respirations on vent. Course breath sounds bilaterally. GASTROINTESTINAL: Abdomen distended, firm, + fluid. Bowel sounds hypoactive. GENITOURINARY: Without palpable bladder distension. Coffman catheter in place, dark scant urine. MUSCULOSKELETAL: Extremities with pitting edema. No mottling or clubbing. LYMPHATICS: No palpable cervical or supraclavicular adenopathy. NEUROLOGICAL: Unresponsive. PSYCHIATRIC: Unresponsive. . Diagnostic Tests Laboratory Laboratory Tests Test 01/12/18 18:46 01/13/18 03:00 01/13/18 14:18 01/14/18 01:15 Prothrombin Time 16.9 SEC (9.8-11.6) Prothromb Time International Ratio 1.7 RATIO Blood Urea Nitrogen 18 MG/DL (7-18) 16 MG/DL (7-18) Creatinine 0.56 MG/DL (0.50-1.00) 0.55 MG/DL (0.50-1.00) 0.57 MG/DL (0.50-1.00) Random Glucose 159 MG/DL (74-106) 153 MG/DL (74-106) Total Protein 4.8 GM/DL (6.4-8.2) 4.7 GM/DL (6.4-8.2) Albumin 2.5 GM/DL (3.4-5.0) 2.3 GM/DL (3.4-5.0) Calcium Level 7.2 MG/DL (8.5-10.1) 7.2 MG/DL (8.5-10.1) Alkaline Phosphatase 187 U/L (45-117) 203 U/L (45-117) Aspartate Amino Transf (AST/SGOT) 76 U/L (15-37) 74 U/L (15-37) Alanine Aminotransferase (ALT/SGPT) 26 U/L (10-53) 27 U/L (10-53) Total Bilirubin 3.2 MG/DL (0.2-1.0) 3.1 MG/DL (0.2-1.0) Sodium Level 138 MEQ/L (136-145) 141 MEQ/L (136-145) Potassium Level 3.7 MEQ/L (3.5-5.1) 3.6 MEQ/L (3.5-5.1) Chloride Level 110 MEQ/L (98-107) 113 MEQ/L (98-107) Carbon Dioxide Level 17.2 MEQ/L (21.0-32.0) 18.6 MEQ/L (21.0-32.0) Anion Gap 11 MEQ/L (5-15) 9 MEQ/L (5-15) Estimat Glomerular Filtration Rate 111 ML/MIN (>89) 114 ML/MIN (>89) 109 ML/MIN (>89) Lactic Acid Level 3.4 mmol/L (0.4-2.0) Protein Corrected Calcium 8.5 MG/DL (8.5-10.1) 8.5 MG/DL (8.5-10.1) White Blood Count 37.5 TH/MM3 (4.0-11.0) Red Blood Count 2.94 MIL/MM3 (4.00-5.30) Hemoglobin 10.4 GM/DL (11.6-15.3) Hematocrit 31.4 % (35.0-46.0) Mean Corpuscular Volume 106.8 FL (80.0-100.0) Mean Corpuscular Hemoglobin 35.2 PG (27.0-34.0) Mean Corpuscular Hemoglobin Concent 33.0 % (32.0-36.0) Red Cell Distribution Width 18.6 % (11.6-17.2) Platelet Count 157 TH/MM3 (150-450) Mean Platelet Volume 10.0 FL (7.0-11.0) Neutrophils (%) (Auto) 94.2 % (16.0-70.0) Lymphocytes (%) (Auto) 3.8 % (9.0-44.0) Monocytes (%) (Auto) 1.8 % (0.0-8.0) Eosinophils (%) (Auto) 0.1 % (0.0-4.0) Basophils (%) (Auto) 0.1 % (0.0-2.0) Neutrophils # (Auto) 35.4 TH/MM3 (1.8-7.7) Lymphocytes # (Auto) 1.4 TH/MM3 (1.0-4.8) Monocytes # (Auto) 0.7 TH/MM3 (0-0.9) Eosinophils # (Auto) 0.0 TH/MM3 (0-0.4) Basophils # (Auto) 0.0 TH/MM3 (0-0.2) CBC Comment AUTO DIFF Differential Total Cells Counted 100 Neutrophils % (Manual) 86 % (16-70) Band Neutrophils % 8 % (0-6) Lymphocytes % 5 % (9-44) Neutrophils # (Manual) 35.6 TH/MM3 (1.8-7.7) Promyelocytes 1 % (0-0) Differential Comment FINAL DIFF MANUAL Toxic Granulation 1+ (NORMAL) Toxic Vacuolation PRESENT (NONE SEEN) Dohle Bodies PRESENT (NONE SEEN) Platelet Estimate NORMAL (NORMAL) Platelet Morphology Comment NORMAL (NORMAL) Red Cell Morphology Comment NORMAL (NORMAL) Phosphorus Level 2.4 MG/DL (2.5-4.9) Magnesium Level 1.8 MG/DL (1.5-2.5) Vancomycin Level Trough 13.7 MCG/ML (5.0-10.0) 10.2 MCG/ML (5.0-10.0) Test 01/14/18 07:56 01/14/18 08:07 01/14/18 11:15 01/14/18 19:00 White Blood Count 42.3 TH/MM3 (4.0-11.0) Red Blood Count 3.87 MIL/MM3 (4.00-5.30) Hemoglobin 13.8 GM/DL (11.6-15.3) Hematocrit 42.3 % (35.0-46.0) Mean Corpuscular Volume 109.2 FL (80.0-100.0) Mean Corpuscular Hemoglobin 35.6 PG (27.0-34.0) Mean Corpuscular Hemoglobin Concent 32.6 % (32.0-36.0) Red Cell Distribution Width 19.1 % (11.6-17.2) Platelet Count 117 TH/MM3 (150-450) Mean Platelet Volume 10.7 FL (7.0-11.0) Neutrophils (%) (Auto) 93.2 % (16.0-70.0) Lymphocytes (%) (Auto) 3.3 % (9.0-44.0) Monocytes (%) (Auto) 3.3 % (0.0-8.0) Eosinophils (%) (Auto) 0.0 % (0.0-4.0) Basophils (%) (Auto) 0.2 % (0.0-2.0) Neutrophils # (Auto) 39.4 TH/MM3 (1.8-7.7) Lymphocytes # (Auto) 1.4 TH/MM3 (1.0-4.8) Monocytes # (Auto) 1.4 TH/MM3 (0-0.9) Eosinophils # (Auto) 0.0 TH/MM3 (0-0.4) Basophils # (Auto) 0.1 TH/MM3 (0-0.2) CBC Comment AUTO DIFF Differential Total Cells Counted 100 Neutrophils % (Manual) 91 % (16-70) Band Neutrophils % 3 % (0-6) Lymphocytes % 1 % (9-44) Monocytes % 5 % (0-8) Neutrophils # (Manual) 39.8 TH/MM3 (1.8-7.7) Differential Comment FINAL DIFF MANUAL Toxic Granulation 2+ (NORMAL) Toxic Vacuolation PRESENT (NONE SEEN) Platelet Estimate LOW (NORMAL) Platelet Morphology Comment NORMAL (NORMAL) Hematology Comments Blood Urea Nitrogen 25 MG/DL (7-18) Creatinine 0.91 MG/DL (0.50-1.00) Random Glucose 93 MG/DL (74-106) Total Protein 4.9 GM/DL (6.4-8.2) Albumin 2.0 GM/DL (3.4-5.0) Calcium Level 8.0 MG/DL (8.5-10.1) Alkaline Phosphatase 348 U/L (45-117) Aspartate Amino Transf (AST/SGOT) 103 U/L (15-37) Alanine Aminotransferase (ALT/SGPT) 34 U/L (10-53) Total Bilirubin 4.2 MG/DL (0.2-1.0) Sodium Level 141 MEQ/L (136-145) Potassium Level 4.5 MEQ/L (3.5-5.1) Chloride Level 114 MEQ/L (98-107) Carbon Dioxide Level 14.7 MEQ/L (21.0-32.0) Anion Gap 12 MEQ/L (5-15) Estimat Glomerular Filtration Rate 63 ML/MIN (>89) Peritoneal Fluid WBC 4467 /MM3 (0-10) Peritoneal Fluid RBC 1053 /MM3 (0-0) Peritoneal Fluid Neutrophils 85 % Peritoneal Fluid Lymphocytes 7 % Peritoneal Fluid Monocytes 5 % Peritoneal Fluid Histiocytes 3 % Peritoneal Fluid Comment Peritoneal Fluid Total Protein 1.1 GM/DL Peritoneal Fluid Albumin 0.6 G/DL Peritoneal Fluid LDH 256 U/L Peritoneal Fluid Glucose 69 MG/DL Blood Gas Puncture Site LT RADIAL Blood Gas Patient Temperature 98.6 Blood Gas HCO3 13 mmol/L (22-26) Blood Gas Base Excess -12.1 mmol/L (-2-2) Blood Gas Oxygen Saturation 92 % (90-100) Arterial Blood pH 7.34 (7.380-7.420) Arterial Blood Partial Pressure CO2 24 mmHg (38-42) Arterial Blood Partial Pressure O2 74 mmHg (61-120) Arterial Blood Oxygen Content 15.3 Vol % (12.0-20.0) Arterial Blood Carboxyhemoglobin 1.0 % (0-4) Arterial Blood Methemoglobin 1.2 % (0-2) Blood Gas Hemoglobin 11.8 G/DL (12.0-16.0) Oxygen Delivery Device Non-Rebreathing Mask Blood Gas Liter Flow 15 L/M Blood Gas Inspired Oxygen 100 % Test 01/14/18 21:45 01/15/18 04:30 01/15/18 04:44 Prothrombin Time 20.7 SEC (9.8-11.6) Prothromb Time International Ratio 2.0 RATIO Blood Urea Nitrogen 33 MG/DL (7-18) 32 MG/DL (7-18) Creatinine 1.15 MG/DL (0.50-1.00) 1.34 MG/DL (0.50-1.00) Random Glucose 118 MG/DL (74-106) 179 MG/DL (74-106) Total Protein 3.5 GM/DL (6.4-8.2) 3.3 GM/DL (6.4-8.2) Albumin 1.6 GM/DL (3.4-5.0) 1.4 GM/DL (3.4-5.0) Calcium Level 7.3 MG/DL (8.5-10.1) 6.8 MG/DL (8.5-10.1) Alkaline Phosphatase 232 U/L (45-117) 231 U/L (45-117) Aspartate Amino Transf (AST/SGOT) 72 U/L (15-37) 97 U/L (15-37) Alanine Aminotransferase (ALT/SGPT) 21 U/L (10-53) 24 U/L (10-53) Total Bilirubin 3.1 MG/DL (0.2-1.0) 2.9 MG/DL (0.2-1.0) Sodium Level 145 MEQ/L (136-145) 142 MEQ/L (136-145) Potassium Level 3.9 MEQ/L (3.5-5.1) 3.8 MEQ/L (3.5-5.1) Chloride Level 118 MEQ/L (98-107) 116 MEQ/L (98-107) Carbon Dioxide Level 14.9 MEQ/L (21.0-32.0) 13.6 MEQ/L (21.0-32.0) Anion Gap 12 MEQ/L (5-15) 12 MEQ/L (5-15) Estimat Glomerular Filtration Rate 48 ML/MIN (>89) 41 ML/MIN (>89) Lactic Acid Level 5.4 mmol/L (0.4-2.0) Protein Corrected Calcium 9.5 MG/DL (8.5-10.1) 9.0 MG/DL (8.5-10.1) White Blood Count 20.9 TH/MM3 (4.0-11.0) Red Blood Count 3.20 MIL/MM3 (4.00-5.30) Hemoglobin 11.5 GM/DL (11.6-15.3) Hematocrit 35.4 % (35.0-46.0) Mean Corpuscular Volume 110.7 FL (80.0-100.0) Mean Corpuscular Hemoglobin 35.9 PG (27.0-34.0) Mean Corpuscular Hemoglobin Concent 32.4 % (32.0-36.0) Red Cell Distribution Width 19.0 % (11.6-17.2) Platelet Count 136 TH/MM3 (150-450) Mean Platelet Volume 11.6 FL (7.0-11.0) Neutrophils (%) (Auto) 92.8 % (16.0-70.0) Lymphocytes (%) (Auto) 4.8 % (9.0-44.0) Monocytes (%) (Auto) 2.2 % (0.0-8.0) Eosinophils (%) (Auto) 0.1 % (0.0-4.0) Basophils (%) (Auto) 0.1 % (0.0-2.0) Neutrophils # (Auto) 19.4 TH/MM3 (1.8-7.7) Lymphocytes # (Auto) 1.0 TH/MM3 (1.0-4.8) Monocytes # (Auto) 0.5 TH/MM3 (0-0.9) Eosinophils # (Auto) 0.0 TH/MM3 (0-0.4) Basophils # (Auto) 0.0 TH/MM3 (0-0.2) CBC Comment AUTO DIFF Differential Total Cells Counted 100 Neutrophils % (Manual) 76 % (16-70) Band Neutrophils % 17 % (0-6) Lymphocytes % 3 % (9-44) Monocytes % 2 % (0-8) Neutrophils # (Manual) 19.9 TH/MM3 (1.8-7.7) Metamyelocytes 1 % (0-1) Myelocytes 1 % (0-0) Differential Comment FINAL DIFF MANUAL Toxic Granulation 1+ (NORMAL) Platelet Estimate LOW (NORMAL) Platelet Morphology Comment ENLARGED (NORMAL) [place] Cells 1+ (NORMAL) Blood Gas Puncture Site LT RADIAL Blood Gas Patient Temperature 98.6 Blood Gas HCO3 13 mmol/L (22-26) Blood Gas Base Excess -14.5 mmol/L (-2-2) Blood Gas Oxygen Saturation 94 % (90-100) Arterial Blood pH 7.15 (7.380-7.420) Arterial Blood Partial Pressure CO2 39 mmHg (38-42) Arterial Blood Partial Pressure O2 98 mmHg (61-120) Arterial Blood Oxygen Content 14.9 Vol % (12.0-20.0) Arterial Blood Carboxyhemoglobin 0.5 % (0-4) Arterial Blood Methemoglobin 1.3 % (0-2) Blood Gas Hemoglobin 11.3 G/DL (12.0-16.0) Oxygen Delivery Device VENTILATOR Blood Gas Ventilator Setting SEE COMMENTS Blood Gas Inspired Oxygen 100 % Result Diagram: 01/15/18 0430 01/15/18 0430 Microbiology Microbiology Date/Time Source Procedure Growth Status 01/14/18 14:26 Blood Other Aerobic Blood Culture Pending Received 01/14/18 14:26 Blood Other Anaerobic Blood Culture Pending Received 01/14/18 14:20 Blood Other Aerobic Blood Culture Pending Received 01/14/18 14:20 Blood Other Anaerobic Blood Culture Pending Received 01/14/18 11:15 Fluid Peritoneal Fluid Gram Stain - Final Resulted 01/14/18 11:15 Fluid Peritoneal Fluid Body Fluid Culture Pending Resulted Imaging Last Impressions Chest X-Ray 01/15/18 0000 Signed Impressions: Service Date/Time: Monday, January 15, 2018 07:49 - CONCLUSION: 1. Air beneath the right hemidiaphragm raising the possibility of free intraperitoneal air or interposed bowel loop. Clinical correlation is recommended to rule out acute abdomen. CT of the abdomen would be helpful to make this differentiation. 2. Persistent severe diffuse bilateral pulmonary infiltrates. 3. Multiple tubes and lines are in good positions. Olivier Torres MD Abdomen X-Ray 01/15/18 0000 Signed Impressions: Service Date/Time: Monday, January 15, 2018 09:23 - CONCLUSION: Normal examination. Catheter within the bladder. No evidence of free air on the 2 films. Mao Sheridan MD Gall Bladder Ultrasound 01/11/182007 Signed Impressions: Service Date/Time: Thursday, January 11, 2018 21:10 - CONCLUSION: 1. Cirrhotic liver with portal hypertension and ascites. 2. Wall thickening of the gallbladder, nonspecific but probably related to ascites and chronic liver disease. Negative sonographic Muniz's sign. 3. Nonspecific but not significantly changed prominence of the common bile duct. No stones are seen. Messi Dalal MD Abdomen/Pelvis CT 01/11/18 0125 Signed Impressions: Service Date/Time: Thursday, January 11, 2018 02:47 - CONCLUSION: 1. Diffuse mural thickening of the colon most characteristic of a colitis. Also mild mural edema of small bowel. 2. Liver cirrhosis with moderate to severe ascites and varices. 3. Small hiatal hernia. Tiny renal cysts. Dion Pagan MD . Patient/Family Conference Present at Family Conference: Met with spouse. Family Conference Time (mins): 45 Family Conference Location: Consult Room Issues Discussed: * Palliative care role, purpose, approach * Additional medical, psychosocial, and spiritual history * Patients general health, functional status, and cognitive changes in the months leading up to the current hospitalization * Patient/family understanding of the current medical problems * Patient/family understanding of prognosis * Patients goals of care as best understood from advance directives and/or conversations and/or values * Current medical treatment options and benefits/burdens of those options * Likely scenarios comparing ongoing aggressive care with a transition to comfort measures only * Questions answered to the best of my ability * Palliative care contact information provided Assessment and Plan Disease Oriented Problem List: (1) Colitis (2) Lactic acidosis (3) Hypotension (4) Peritonitis (5) Hyperkalemia (6) Cirrhosis (7) Hepatic insufficiency (8) Tachycardia (9) Hyponatremia (10) Abdominal pain Symptom Scale: (1) Abdominal pain 0-10 Scale: Unable to quantify (2) Dyspnea 0-10 Scale: Unable to quantify Pertinent Non-Medical Issues Psychosocial: . No children. No other family. Spiritual: [employer]. 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 Legal: Patient is not capacitated to make her own health care decisions, will not regain capacity. According to [place] statutes, health care proxy decision making falls to her spouse, Óscar Oneill. Ethical issues impacting care: None. . Important Contacts * Óscar Oneill, spouse: or . Prognosis Patient has liver cirrhosis, multisystem organ failure and is terminal. . Code Status: No Code Plan * Patient is not capacitated to make her own health care decisions, will not regain capacity. According to [place] statutes, health care proxy decision making falls to her spouse, Óscar Oneill. * NO CODE * Discussed with GARETT Gaspar, Dr. Marroquin, Dr. Sandoval and nursing staff. * Met with spouse - he has elected against surgery, he feels she will not survive the surgery. He tells me she made him promise he would not ever keep her alive by machines. He is certain she would want to be allowed to peacefully and naturally. He elects to proceed with transition to comfort measures with compassionate withdrawal of life support. He declines hospice at this time. * Professional Fee Coder services requested. * Exhibits B & C on chart, signed. * SYMPTOMS: Pain: due to liver failure, renal failure, respiratory failure, tubes, lines and bedbound status. Has PRN Morphine available. Dyspnea: due to resp failure, ARDS, liver and renal failure. Orders written for transition to comfort. * Palliative care number provided. * Palliative care will continue to follow to assist with symptom management. . Thank you for the opportunity to participate in the care of Ms. Oneill. Attestation To help prompt me to consider important information that might be impacting today's encounter and assessment, information from prior notes written by myself or my colleagues may have been "brought forward" into today's note. My signature on this note, however, is an attestation that I personally performed the exam, history, and/or decision-making noted today, and, unless otherwise indicated, the interactions with patient, family, and staff as well as the review of records all occurred today. I also attest that the listed assessment and stated plan reflect my best clinical judgment today based on the combination of historical information, prior notes, and today's exam/ interactions. When time spent is documented, it refers only to time spent today by the signer, or if indicated, combined time spent today by collaborating physician/nurse practitioner. Stephany Noel Jan 15, 2018 10:32
[2018-01-15] MEDS ORDERED: LORazepam 2 MG/ML VIAL IV PUSH ONE ×2 (10:45→11:00)
[2018-01-15] MEDS ORDERED: HYOSCYAMINE 0.125 MG TAB PO/SL ONE (10:45)
[2018-01-15] MEDS ORDERED: HYDROmorphone HCL PF 2 MG/ML VIAL IV PUSH ONE ×2 (10:45→11:00)
[2018-01-15] MEDS ORDERED: LORazepam 2 MG/ML VIAL IV PUSH PRN ×2 (11:15)
[2018-01-15] MEDS ORDERED: ACETAMINOPHEN 650 MG SUPP RECTAL PRN (11:15)
[2018-01-15] MEDS ORDERED: HYDROmorphone HCL PF 2 MG/ML VIAL IV PUSH PRN ×2 (11:15)
[2018-01-15] MEDS ORDERED: HYOSCYAMINE 0.5 MG/ML AMP IV PUSH PRN (11:15)
[2018-01-15] MEDS ORDERED: FUROSEMIDE 20 MG/2 ML VIAL IV PUSH PRN (11:15)
[2018-01-15] MEDS: SODIUM CHLORIDE 0.9% FLUSH 10 ML FLUSH IV FLUSH SCH (11:18)
--- NOTE | 2018-01-15 11:55 | HHI.GIFU ---
Subjective Remarks Pt intubated on vent. at bedside. Per CCM, pt decompensated and was intubated last night. Withdrawal pending. (Milly Cline) Objective Vitals I&O Vital Signs Date Time Temp Pulse Resp B/P (MAP) Pulse Ox O2 Delivery O2 Flow Rate FiO2 01/15/18 08:00 100 80 01/15/18 06:00 138 01/15/18 04:15 144 94/48 01/15/18 04:14 141 94/48 01/15/18 04:00 144 01/15/18 04:00 97.9 144 16 82/55 (64) 100 01/15/18 03:30 96 100 01/15/18 02:44 18 01/15/18 02:00 139 01/15/18 00:25 96 Non-Rebreather 15.00 100 01/15/18 00:14 135 88/58 01/15/18 00:00 142 01/15/18 00:00 142 82/56 01/15/18 00:00 98.2 142 18 108/68 (81) 90 01/14/18 22:00 126 01/14/18 20:00 97.8 138 16 80/51 (61) 91 01/14/18 20:00 138 01/14/18 19:00 94 Nasal Cannula 2.00 01/14/18 18:45 132 01/14/18 17:00 96.3 129 16 104/56 (72) 88 01/14/18 17:00 129 01/14/18 16:52 92 Non-Rebreather 15.00 100 01/14/18 16:00 122 01/14/18 16:00 95.7 122 22 01/14/18 15:00 100 17 113/65 (81) 87 01/14/18 15:00 100 01/14/18 14:00 103 01/14/18 14:00 97 15 100/63 (75) 92 01/14/18 13:00 93 12 91/60 (70) 92 01/14/18 13:00 93 01/14/18 12:00 129 15 88/63 (71) 84 01/14/18 12:00 129 I/O 01/14/18 01/14/18 01/14/18 01/15/18 01/15/18 01/15/18 07:00 15:00 23:00 07:00 15:00 23:00 Intake Total 1350 ml 100 ml Output Total 350 ml 100 ml 150 ml Balance 1000 ml -100 ml -50 ml IV Total 1350 ml 100 ml Output Urine Total 350 ml 100 ml 150 ml # Bowel Movements 0 0 Laboratory Laboratory Tests Test 01/14/18 19:00 01/14/18 21:45 01/15/18 04:30 01/15/18 04:44 Blood Gas Puncture Site LT RADIAL LT RADIAL Blood Gas Patient Temperature 98.6 98.6 Blood Gas HCO3 13 13 Blood Gas Base Excess -12.1 -14.5 Blood Gas Oxygen Saturation 92 94 Arterial Blood pH 7.34 7.15 Arterial Blood Partial Pressure CO2 24 39 Arterial Blood Partial Pressure O2 74 98 Arterial Blood Oxygen Content 15.3 14.9 Arterial Blood Carboxyhemoglobin 1.0 0.5 Arterial Blood Methemoglobin 1.2 1.3 Blood Gas Hemoglobin 11.8 11.3 Oxygen Delivery Device Non-Rebreathing Mask VENTILATOR Blood Gas Liter Flow 15 Blood Gas Inspired Oxygen 100 100 Prothrombin Time 20.7 Prothromb Time International Ratio 2.0 Blood Urea Nitrogen 33 32 Creatinine 1.15 1.34 Random Glucose 118 179 Total Protein 3.5 3.3 Albumin 1.6 1.4 Calcium Level 7.3 6.8 Alkaline Phosphatase 232 231 Aspartate Amino Transf (AST/SGOT) 72 97 Alanine Aminotransferase (ALT/SGPT) 21 24 Total Bilirubin 3.1 2.9 Sodium Level 145 142 Potassium Level 3.9 3.8 Chloride Level 118 116 Carbon Dioxide Level 14.9 13.6 Anion Gap 12 12 Estimat Glomerular Filtration Rate 48 41 Lactic Acid Level 5.4 Protein Corrected Calcium 9.5 9.0 White Blood Count 20.9 Red Blood Count 3.20 Hemoglobin 11.5 Hematocrit 35.4 Mean Corpuscular Volume 110.7 Mean Corpuscular Hemoglobin 35.9 Mean Corpuscular Hemoglobin Concent 32.4 Red Cell Distribution Width 19.0 Platelet Count 136 Mean Platelet Volume 11.6 Neutrophils (%) (Auto) 92.8 Lymphocytes (%) (Auto) 4.8 Monocytes (%) (Auto) 2.2 Eosinophils (%) (Auto) 0.1 Basophils (%) (Auto) 0.1 Neutrophils # (Auto) 19.4 Lymphocytes # (Auto) 1.0 Monocytes # (Auto) 0.5 Eosinophils # (Auto) 0.0 Basophils # (Auto) 0.0 CBC Comment AUTO DIFF Differential Total Cells Counted 100 Neutrophils % (Manual) 76 Band Neutrophils % 17 Lymphocytes % 3 Monocytes % 2 Neutrophils # (Manual) 19.9 Metamyelocytes 1 Myelocytes 1 Differential Comment FINAL DIFF MANUAL Toxic Granulation 1+ Platelet Estimate LOW Platelet Morphology Comment ENLARGED Berto Cells 1+ Blood Gas Ventilator Setting SEE COMMENTS Date/Time Source Procedure Growth Status 01/14/18 14:26 Blood Other Aerobic Blood Culture - Preliminary NO GROWTH IN 1 DAY Resulted 01/14/18 14:26 Blood Other Anaerobic Blood Culture - Preliminary NO GROWTH IN 1 DAY Resulted 01/14/18 11:15 Fluid Peritoneal Fluid Gram Stain - Final Resulted 01/14/18 11:15 Fluid Peritoneal Fluid Body Fluid Culture - Preliminary NO GROWTH IN 24 HOURS. Resulted Imaging Last Impressions Chest X-Ray 01/15/18 0000 Signed Impressions: Service Date/Time: Monday, January 15, 2018 07:49 - CONCLUSION: 1. Air beneath the right hemidiaphragm raising the possibility of free intraperitoneal air or interposed bowel loop. Clinical correlation is recommended to rule out acute abdomen. CT of the abdomen would be helpful to make this differentiation. 2. Persistent severe diffuse bilateral pulmonary infiltrates. 3. Multiple tubes and lines are in good positions. Olivier Torres MD Abdomen X-Ray 01/15/18 0000 Signed Impressions: Service Date/Time: Monday, January 15, 2018 09:23 - CONCLUSION: Normal examination. Catheter within the bladder. No evidence of free air on the 2 films. Mao Sheridan MD Gall Bladder Ultrasound 01/11/182007 Signed Impressions: Service Date/Time: Thursday, January 11, 2018 21:10 - CONCLUSION: 1. Cirrhotic liver with portal hypertension and ascites. 2. Wall thickening of the gallbladder, nonspecific but probably related to ascites and chronic liver disease. Negative sonographic Muniz's sign. 3. Nonspecific but not significantly changed prominence of the common bile duct. No stones are seen. Messi Dalal MD Abdomen/Pelvis CT 01/11/18 0125 Signed Impressions: Service Date/Time: Thursday, January 11, 2018 02:47 - CONCLUSION: 1. Diffuse mural thickening of the colon most characteristic of a colitis. Also mild mural edema of small bowel. 2. Liver cirrhosis with moderate to severe ascites and varices. 3. Small hiatal hernia. Tiny renal cysts. Dion Pagan MD Physical Exam HEENT: normocephalic; atraumatic; intubated ABDOMEN: distended EXTREMITIES: , + pitting BLE edema SKIN: Normal; no rash; no jaundice. SNOW REMOVAL/PLOWING: on vent, unresponsive (Milly Cline) Assessment and Plan Plan ASSESSMENT - abd pain - unclear etiology, ?peritonitis?ischemia recently s/p paracentesis, fluid cx pending CT showing colitis, moderate to severe ascites, varices. pt extremely tender, abd firm and distended GS has been consulted - melanotic stool - reported melena. pt noticed black tarry stool for last 2 weeks - hx cirrhosis, etoh - s/p paracentesis, 2nd in 2 weeks 01/12/18 pt and agreeable to proceed with flex sig today to r/o colitis. pain unchanged. abd firm, distended, tender. 01/13/18 pt seems more comfortable today. WBC trending up. s/p flex sig 01/12 unremarkable, colon does not appear to be source of sx or infection. peritoneal fluid no growth 24h. exudent present, no malignant cells. d/w CCM ? gallbladder LFTs are stable. 01/14/18 WBC continues upward. ?gallbladder. abd distended, very tender. LFTs trending up. poss paracentesis today no surgery per GS. ?cholecystostomy 01/15/18 per CCM pt decompensated and was intubated. per GS free air was seen on xray. pt was too unstable to go for CT. palliative care was consulted and pts is opting for withdrawal PLAN - further mgmt per palliative care - GI will sign off. please reconsult if needed pt seen by myself and DR Telles and this note is on his behalf (Milly Cline) Physician Comments Patient seen and examined Agree with above Patient is to be evaluated for hospice care Not much to add from a GI perspective we will sign off (Julián Telles MD) Milly Cline Jan 15, 2018 11:55 Julián Telles MD Jan 15, 2018 13:09
[2018-01-15] MEDS ORDERED: HYDROCORTISONE SOD SUCCINATE 100 MG VIAL IV PUSH SCH (12:00)
[2018-01-15] MEDS ORDERED: LORazepam 2 MG/ML VIAL IV PUSH SCH (12:00)
[2018-01-15] MEDS ORDERED: HYDROmorphone HCL PF 2 MG/ML VIAL IV PUSH SCH (12:00)
[2018-01-15 14:17] LABS: AMYLASE BODY FLUID 4923 U/L; AMYLASE BODY FLUID TYPE PERITONEAL
--- NOTE | 2018-01-15 15:07 | HHI.DS ---
Discharge Summary Admission Date Jan 11, 2018 at 03:37 Discharge Date: Jan 15, 2018 Admitting Diagnosis peritonitis; cirrhosis; sepsis (1) FERMIN (acute kidney injury) ICD Code: N17.9 - Acute kidney failure, unspecified (2) Acute respiratory failure with hypoxemia ICD Code: J96.01 - Acute respiratory failure with hypoxia (3) Septic shock ICD Code: A41.9 - Sepsis, unspecified organism; R65.21 - Severe sepsis with septic shock Diagnosis: Principal (4) Hepatic insufficiency ICD Code: K72.90 - Hepatic failure, unspecified without coma Status: Chronic Procedures Endotracheal intubation, central line placement, paracentesis Brief History HPI 58-year-old female presents to the emergency department by private transportation the care of her spouse for evaluation of severe abdominal pain. Patient was recently hospitalized 01/02/18 through 01/06/18 for evaluation of liver failure with ascites at [facility]. During her hospitalization she underwent paracentesis of 4-1/2 L of ascitic fluid and was discharged with recommendation for follow-up with GI and had an appointment for next week. She did receive 1 dose of Levaquin during the hospitalization in the ER which was discontinued at the time since her ascites fluid did not suggest peritonitis and her peritoneal fluid cultures did not reveal any growth at 72 hours. No report of fever or chills. Patient previous alcohol consumer but no alcohol since last hospitalization about 10 days back. Patient was discharged on spironolactone metoprolol and pentoxifylline. Patient complains of severe abdominal pain which has worsened since her discharge on 01/06/18. She stated that her belly distention did not really improve significantly following her last paracentesis however her lower extremity swelling has significantly improved. She also has complained of some black stools going on for about 4-5 days. History PFSH Past Medical History Narrative Medical Cirrhosis liver failure hyponatremia hyperkalemia hypotension paracentesis; alcohol abuse; nursing notes reviewed Cancer: No Cardiovascular Problems: No Chemotherapy: No Cirrhosis: Yes (w/ascites ) Diabetes: No Diminished Hearing: No Endocrine: No Genitourinary: No Immune Disorder: No Musculoskeletal: Yes Neurologic: No Psychiatric: No Reproductive: No Respiratory: No Radiation Therapy: No Thyroid Disease: No Past Surgical History Other Surgery: Yes (BACK AND RIGHT ARM SX) Social History Alcohol Use: Yes (couple drinks every 2 days) Tobacco Use: No Substance Use: No Allergies-Medications Allergies-Medications (Allergen,Severity, Reaction): Coded Allergies: doxycycline (Unverified Allergy, Severe, 01/11/18) minocycline (Unverified Allergy, Severe, 01/11/18) penicillin G (Unverified Allergy, Severe, 01/11/18) tigecycline (Unverified Allergy, Severe, 01/11/18) Reported Meds & Prescriptions Reported Meds & Active Scripts Active Pentoxifylline ER (Pentoxifylline) 400 Mg Tab 400 Mg PO BID Furosemide 20 Mg Tab 20 Mg PO BID@ Spironolactone 50 Mg Tab 50 Mg PO DAILY Reported Metoprolol Succinate ER 24 HR (Metoprolol Succinate) 25 Mg Tab 25 Mg PO DAILY ROS Review of Systems Except as stated in HPI: all other systems reviewed are Neg General / Constitutional: Positive: Chills, No: Fever HENT: No: Congestion Cardiovascular: No: Chest Pain or Discomfort Respiratory: Positive: Shortness of Breath Gastrointestinal: Positive: Abdominal Pain Genitourinary: No: Flank Pain Musculoskeletal: No: Pain Skin: No Rash Neurologic: Positive: Weakness Psychiatric: Positive: Anxiety Hematologic/Lymphatic: Positive: Easy Bruising CBC/BMP: 01/15/18 0430 01/15/18 0430 Significant Findings ABG Test 01/14/18 19:00 01/15/18 04:44 Arterial Blood Carboxyhemoglobin 1.0 % 0.5 % Arterial Blood Methemoglobin 1.2 % 1.3 % Arterial Blood Oxygen Content 15.3 Vol % 14.9 Vol % Arterial Blood Partial Pressure CO2 24 mmHg *L 39 mmHg Arterial Blood Partial Pressure O2 74 mmHg 98 mmHg Arterial Blood pH 7.34 L 7.15 *L Blood Gas Base Excess -12.1 mmol/L L -14.5 mmol/L L Blood Gas HCO3 13 mmol/L *L 13 mmol/L *L Blood Gas Hemoglobin 11.8 G/DL L 11.3 G/DL L Blood Gas Inspired Oxygen 100 % 100 % Blood Gas Liter Flow 15 L/M Blood Gas Oxygen Saturation 92 % 94 % Oxygen Delivery Device Non-Rebreathing Mask VENTILATOR Blood Gas Ventilator Setting SEE COMMENTS Laboratory Tests Test 01/12/18 18:46 01/13/18 03:00 01/13/18 14:18 01/14/18 01:15 Prothrombin Time 16.9 SEC (9.8-11.6) Random Glucose 159 MG/DL (74-106) 153 MG/DL (74-106) Total Protein 4.8 GM/DL (6.4-8.2) 4.7 GM/DL (6.4-8.2) Albumin 2.5 GM/DL (3.4-5.0) 2.3 GM/DL (3.4-5.0) Calcium Level 7.2 MG/DL (8.5-10.1) 7.2 MG/DL (8.5-10.1) Alkaline Phosphatase 187 U/L (45-117) 203 U/L (45-117) Aspartate Amino Transf (AST/SGOT) 76 U/L (15-37) 74 U/L (15-37) Total Bilirubin 3.2 MG/DL (0.2-1.0) 3.1 MG/DL (0.2-1.0) Chloride Level 110 MEQ/L (98-107) 113 MEQ/L (98-107) Carbon Dioxide Level 17.2 MEQ/L (21.0-32.0) 18.6 MEQ/L (21.0-32.0) Lactic Acid Level 3.4 mmol/L (0.4-2.0) White Blood Count 37.5 TH/MM3 (4.0-11.0) Red Blood Count 2.94 MIL/MM3 (4.00-5.30) Hemoglobin 10.4 GM/DL (11.6-15.3) Hematocrit 31.4 % (35.0-46.0) Mean Corpuscular Volume 106.8 FL (80.0-100.0) Mean Corpuscular Hemoglobin 35.2 PG (27.0-34.0) Red Cell Distribution Width 18.6 % (11.6-17.2) Neutrophils (%) (Auto) 94.2 % (16.0-70.0) Lymphocytes (%) (Auto) 3.8 % (9.0-44.0) Neutrophils # (Auto) 35.4 TH/MM3 (1.8-7.7) Neutrophils % (Manual) 86 % (16-70) Band Neutrophils % 8 % (0-6) Lymphocytes % 5 % (9-44) Neutrophils # (Manual) 35.6 TH/MM3 (1.8-7.7) Promyelocytes 1 % (0-0) Toxic Granulation 1+ (NORMAL) Toxic Vacuolation PRESENT (NONE SEEN) Dohle Bodies PRESENT (NONE SEEN) Phosphorus Level 2.4 MG/DL (2.5-4.9) Vancomycin Level Trough 13.7 MCG/ML (5.0-10.0) 10.2 MCG/ML (5.0-10.0) Test 01/14/18 07:56 01/14/18 08:07 01/14/18 11:15 01/14/18 19:00 White Blood Count 42.3 TH/MM3 (4.0-11.0) Red Blood Count 3.87 MIL/MM3 (4.00-5.30) Mean Corpuscular Volume 109.2 FL (80.0-100.0) Mean Corpuscular Hemoglobin 35.6 PG (27.0-34.0) Red Cell Distribution Width 19.1 % (11.6-17.2) Platelet Count 117 TH/MM3 (150-450) Neutrophils (%) (Auto) 93.2 % (16.0-70.0) Lymphocytes (%) (Auto) 3.3 % (9.0-44.0) Neutrophils # (Auto) 39.4 TH/MM3 (1.8-7.7) Monocytes # (Auto) 1.4 TH/MM3 (0-0.9) Neutrophils % (Manual) 91 % (16-70) Lymphocytes % 1 % (9-44) Neutrophils # (Manual) 39.8 TH/MM3 (1.8-7.7) Toxic Granulation 2+ (NORMAL) Toxic Vacuolation PRESENT (NONE SEEN) Platelet Estimate LOW (NORMAL) Blood Urea Nitrogen 25 MG/DL (7-18) Total Protein 4.9 GM/DL (6.4-8.2) Albumin 2.0 GM/DL (3.4-5.0) Calcium Level 8.0 MG/DL (8.5-10.1) Alkaline Phosphatase 348 U/L (45-117) Aspartate Amino Transf (AST/SGOT) 103 U/L (15-37) Total Bilirubin 4.2 MG/DL (0.2-1.0) Chloride Level 114 MEQ/L (98-107) Carbon Dioxide Level 14.7 MEQ/L (21.0-32.0) Estimat Glomerular Filtration Rate 63 ML/MIN (>89) Peritoneal Fluid WBC 4467 /MM3 (0-10) Peritoneal Fluid RBC 1053 /MM3 (0-0) Blood Gas HCO3 13 mmol/L (22-26) Blood Gas Base Excess -12.1 mmol/L (-2-2) Arterial Blood pH 7.34 (7.380-7.420) Arterial Blood Partial Pressure CO2 24 mmHg (38-42) Blood Gas Hemoglobin 11.8 G/DL (12.0-16.0) Test 01/14/18 21:45 01/15/18 04:30 01/15/18 04:44 Prothrombin Time 20.7 SEC (9.8-11.6) Blood Urea Nitrogen 33 MG/DL (7-18) 32 MG/DL (7-18) Creatinine 1.15 MG/DL (0.50-1.00) 1.34 MG/DL (0.50-1.00) Random Glucose 118 MG/DL (74-106) 179 MG/DL (74-106) Total Protein 3.5 GM/DL (6.4-8.2) 3.3 GM/DL (6.4-8.2) Albumin 1.6 GM/DL (3.4-5.0) 1.4 GM/DL (3.4-5.0) Calcium Level 7.3 MG/DL (8.5-10.1) 6.8 MG/DL (8.5-10.1) Alkaline Phosphatase 232 U/L (45-117) 231 U/L (45-117) Aspartate Amino Transf (AST/SGOT) 72 U/L (15-37) 97 U/L (15-37) Total Bilirubin 3.1 MG/DL (0.2-1.0) 2.9 MG/DL (0.2-1.0) Chloride Level 118 MEQ/L (98-107) 116 MEQ/L (98-107) Carbon Dioxide Level 14.9 MEQ/L (21.0-32.0) 13.6 MEQ/L (21.0-32.0) Estimat Glomerular Filtration Rate 48 ML/MIN (>89) 41 ML/MIN (>89) Lactic Acid Level 5.4 mmol/L (0.4-2.0) White Blood Count 20.9 TH/MM3 (4.0-11.0) Red Blood Count 3.20 MIL/MM3 (4.00-5.30) Hemoglobin 11.5 GM/DL (11.6-15.3) Mean Corpuscular Volume 110.7 FL (80.0-100.0) Mean Corpuscular Hemoglobin 35.9 PG (27.0-34.0) Red Cell Distribution Width 19.0 % (11.6-17.2) Platelet Count 136 TH/MM3 (150-450) Mean Platelet Volume 11.6 FL (7.0-11.0) Neutrophils (%) (Auto) 92.8 % (16.0-70.0) Lymphocytes (%) (Auto) 4.8 % (9.0-44.0) Neutrophils # (Auto) 19.4 TH/MM3 (1.8-7.7) Neutrophils % (Manual) 76 % (16-70) Band Neutrophils % 17 % (0-6) Lymphocytes % 3 % (9-44) Neutrophils # (Manual) 19.9 TH/MM3 (1.8-7.7) Myelocytes 1 % (0-0) Toxic Granulation 1+ (NORMAL) Platelet Estimate LOW (NORMAL) Platelet Morphology Comment ENLARGED (NORMAL) Berto Cells 1+ (NORMAL) Blood Gas HCO3 13 mmol/L (22-26) Blood Gas Base Excess -14.5 mmol/L (-2-2) Arterial Blood pH 7.15 (7.380-7.420) Blood Gas Hemoglobin 11.3 G/DL (12.0-16.0) Imaging Last Impressions Chest X-Ray 01/15/18 Signed Impressions: Service Date/Time: Monday, January 15, 2018 07:49 - CONCLUSION: 1. Air beneath the right hemidiaphragm raising the possibility of free intraperitoneal air or interposed bowel loop. Clinical correlation is recommended to rule out acute abdomen. CT of the abdomen would be helpful to make this differentiation. 2. Persistent severe diffuse bilateral pulmonary infiltrates. 3. Multiple tubes and lines are in good positions. Olivier Torres MD Abdomen X-Ray 01/15/18 0000 Signed Impressions: Service Date/Time: Monday, January 15, 2018 09:23 - CONCLUSION: Normal examination. Catheter within the bladder. No evidence of free air on the 2 films. Mao Sheridan MD Gall Bladder Ultrasound 4/23/18 2008 Signed Impressions: Service Date/Time: Thursday, January 11, 2018 21:10 - CONCLUSION: 1. Cirrhotic liver with portal hypertension and ascites. 2. Wall thickening of the gallbladder, nonspecific but probably related to ascites and chronic liver disease. Negative sonographic Muniz's sign. 3. Nonspecific but not significantly changed prominence of the common bile duct. No stones are seen. Messi Dalal MD Abdomen/Pelvis CT 01/11/185 Signed Impressions: Service Date/Time: Thursday, January 11, 2018 02:47 - CONCLUSION: 1. Diffuse mural thickening of the colon most characteristic of a colitis. Also mild mural edema of small bowel. 2. Liver cirrhosis with moderate to severe ascites and varices. 3. Small hiatal hernia. Tiny renal cysts. Dion Pagan MD PE at Discharge Patient Hospital Course 01/11: 58-year-old female presents to the emergency department by private transportation the care of her spouse for evaluation of severe abdominal pain. Patient was recently hospitalized 01/02/18 through 01/06/18 for evaluation of liver failure with ascites at [facility]. During her hospitalization she underwent paracentesis of 4-1/2 L of ascitic fluid and was discharged with recommendation for follow-up with GI and had an appointment for next week. She did receive 1 dose of Levaquin during the hospitalization in the ER which was discontinued at the time since her ascites fluid did not suggest peritonitis and her peritoneal fluid cultures did not reveal any growth at 72 hours. No report of fever or chills. Patient previous alcohol consumer but no alcohol since last hospitalization about 10 days back. Patient was discharged on spironolactone metoprolol and pentoxifylline. Patient complains of severe abdominal pain which has worsened since her discharge on 01/06/18. She stated that her belly distention did not really improve significantly following her last paracentesis however her lower extremity swelling has significantly improved. She also has complained of some black stools going on for about 4-5 days. 01/12: Underwent paracentesis with drainage of about 4 L of ascitic fluid yesterday. Still having significant abdominal pain. White count has jumped to 32,000. No diarrhea since yesterday. Patient has been evaluated by GI and general surgery. Still awaiting colonoscopy for further evaluation of colitis. Has not required pressors. 01/13: Resting comfortably. Underwent sigmoidoscopy yesterday and colon was visualized up to the descending colon which did not reveal any evidence of colitis, specimens were taken for biopsy by GI results of which are pending. On gross visualization no evidence of pseudomembrane or ischemia per GI. Patient continues to have abdominal pain and leukocytosis. She is maintaining her blood pressure. Remains on nasal cannula. 01/14: Resting comfortably. Continues to have abdominal distention and pain. Worsening leukocytosis noted. GI general surgery and ID following. We will plan on repeating paracentesis for worsening ascites. 01/15: Patient decompensated over the night, became more altered, hypotensive and hypoxic. She was intubated and a central line was placed and she was started on vasopressors. Currently patient on a PEEP of 5 and an FiO2 of 0.8, on norepinephrine at 8 and phenylephrine at 250. Patient also with worsening renal function, oliguric. Remains hypothermic on bear hugger. Unresponsive, not on any sedation. Morning chest x-ray reviewed, developing diffuse bilateral infiltrates/early ARDS, ?free intraperitoneal air under the right diaphragm. Based on patient's prior wishes expressed by her she would have never wanted to be supported like this therefore in keeping up with patient's wishes withdrew care and patient . Pt Condition on Discharge: Deteriorating Froylan Marroquin MD Jan 15, 2018 15:07
[2018-01-16] MEDS ORDERED: PHARMACY ORDERED LAB ONE (01:45)
== END 2018-01-15 12:15 | disposition expired | DRG 871 ==
LOC: PHED 01:11 → PHEDA 03:37 → HIME 06:55
PROVIDERS: ADMIT Internal Medicine Critical Care Medicine; ATTEND Internal Medicine Critical Care Medicine
PROC: 0W9G3ZZ Drainage of Peritoneal Cavity, Percutaneous Approach (ICD-10-PCS; 2018-01-11)
PROC: 0DBM8ZX Excision of Descending Colon, Via Natural or Artificial Opening Endoscopic, Diagnostic (ICD-10-PCS; 2018-01-12)
PROC: 0W9G3ZZ Drainage of Peritoneal Cavity, Percutaneous Approach (ICD-10-PCS; 2018-01-14)
PROC: 5A1935Z Respiratory Ventilation, Less than 24 Consecutive Hours (ICD-10-PCS; principal; 2018-01-15)
PROC: 0BH17EZ Insertion of Endotracheal Airway into Trachea, Via Natural or Artificial Opening (ICD-10-PCS; 2018-01-15)
PROC: 02HV33Z Insertion of Infusion Device into Superior Vena Cava, Percutaneous Approach (ICD-10-PCS; 2018-01-15)
DX: A41.9 Sepsis, unspecified organism (principal); K65.9 Peritonitis, unspecified; J96.01 Acute respiratory failure with hypoxia; R65.21 Severe sepsis with septic shock; G93.40 Encephalopathy, unspecified; N17.9 Acute kidney failure, unspecified; K76.6 Portal hypertension; E87.2 Acidosis; E87.1 Hypo-osmolality and hyponatremia; F10.188 Alcohol abuse with other alcohol-induced disorder; K92.1 Melena; K70.31 Alcoholic cirrhosis of liver with ascites; K72.90 Hepatic failure, unspecified without coma; E87.5 Hyperkalemia; F41.9 Anxiety disorder, unspecified; K52.9 Noninfective gastroenteritis and colitis, unspecified; M19.90 Unspecified osteoarthritis, unspecified site; Z88.1 Allergy status to other antibiotic agents; Z88.0 Allergy status to penicillin; Z87.891 Personal history of nicotine dependence; Z78.1 Physical restraint status; Z51.5 Encounter for palliative care
CPT/HCPCS: 31500; 36556; 36600; 49082; 51702; 71045; 74018; 74177; 76705; 76937; 80053; 80202; 81001; 82042; 82140; 82150; 82390; 82565; 82728; 82784; 82805; 82945; 82948; 83516; 83520; 83540; 83605; 83615; 83690; 83735; 84100; 84157; 85007; 85027; 85610; 85730; 86038; 86255; 86403; 86850; 86900; 86901; 87040; 87070; 87205; 87641; 88112; 88305; 89051; 93005; 93308; 94002; 96365; 96368; 96375; C9113; J0330; J1170; J1450; J1650; J1720; J2060; J2185; J2250; J2270; J2370; J2405; J3370; J3411; J3480; J7030; J7040; J7042; J7050; J7060; J7070; P9047; Q9963; Q9967